=== PATIENT | male | born 1940 | race Caucasian/White ===

== ENCOUNTER 2019-02-21 15:09 | Observation (INO) | payer OTHER ==
--- OUTSIDE RECORDS SUMMARY | 2019-02-21 15:11 | XMS REPORT | Clinical Summary ---
:1940 Author Organization [facility] Address [address] [place] [address] Care Team Providers Name Role Phone Unavailable Primary Care Provider Unavailable Allergies No Known Allergies Medications Medication Sig Dispensed Refills Start Date End Date Status gabapentin (NEURONTIN) Take 300 mg by 0 Active 300 MG mouth 2 (two) capsuleIndications: times daily. Neuropathic Pain lansoprazole Take 30 mg by 0 Active (PREVACID) 30 MG mouth daily. capsule zinc gluconate 50 mg Take 50 mg by 0 Active tablet mouth daily. acetaminophen Take 650 mg by 0 Active (TYLENOL) 650 MG CR mouth every 8 tablet (eight) hours as needed for Pain. amLODIPine (NORVASC) 5 Take 1 tablet 90 tablet 0 08/31/2017 08/31/2018 MG tablet (5 mg total) by mouth daily. atorvastatin (LIPITOR) Take 1 tablet 90 tablet 0 08/30/2017 08/30/2018 80 MG tablet (80 mg total) by mouth nightly. aspirin 81 MG EC Take 1 tablet 90 tablet 0 08/31/2017 08/31/2018 tablet (81 mg total) by mouth daily. Active Problems Problem Noted Date Essential hypertension 08/27/2017 Ischemic stroke 08/26/2017 Tissue plasminogen activator (t-PA) administered at other facility within 04/2018 24 hours prior to current admission Immunizations Name Dates Previously Given Next Due Pneumococcal Polysaccharide (Pneumovax) 08/28/2017 Social History Tobacco Use Types Packs/Day Years Used Date Never Smoker Smokeless Tobacco: Never Used Alcohol Use Drinks/Week oz/Week Comments No Sex Assigned at Date Recorded Not on file Job Start Date Occupation Industry Not on file Not on file Not on file Travel History Travel Start Travel End No recent travel history available. Last Filed Vital Signs Not on file Plan of Treatment Not on file Results Not on fileafter 02/20/2018 Insurance Payer Benefit Plan / Subscriber ID Type Phone Address Group [employer] - [employer] MED[employer]ARE xxxxxxxx [facility] [phone] [address] MEDICARE [employer] HMO POS [id number] [place] [address] Advance Directives For more information, please contact:[address] [phone] Code Status Date Activated Date Inactivated Comments Full Code 08/26/2017 2:23 PM 08/30/2017 4:32 PM This code status was determined by: Patient
--- OUTSIDE RECORDS SUMMARY | 2019-02-21 15:12 | XMS REPORT ---
:1940 [facility] Organization [facility] Address [address] [place] [address] Care Team Providers Name Role Phone MARIZOL TELLEZ Unavailable Unavailable Problems This patient has no known problems. Allergies, Adverse Reactions, Alerts This patient has no known allergies or adverse reactions. Medications This patient has no known medications. Results Test Description Test Time Test Comments Text Results Atomic Results Result Comments BASIC METABOLIC PANEL 2017-08-30 05:44:00 Test Item Value Reference Range Comments SODIUM (BEAKER) (test 140 meq/L 136-145 lghh=529) POTASSIUM (BEAKER) (test 3.4 meq/L 3.5-5.1 pfpq=233) CHLORIDE (BEAKER) (test 110 meq/L 98-107 upkj=694) CO2 (BEAKER) (test gzcb=748) 22 meq/L 22-29 BLOOD UREA NITROGEN (BEAKER) 19 mg/dL 7-21 (test dzmt=197) CREATININE (BEAKER) (test 0.97 mg/dL 0.57-1.25 sytr=507) GLUCOSE RANDOM (BEAKER) 102 mg/dL 70-105 (test jgdw=462) CALCIUM (BEAKER) (test 8.9 mg/dL 8.4-10.2 ftaj=872) EGFR (BEAKER) (test 75 mL/min/1.73 sq m ESTIMATED GFR IS NOT odik=2108) ACCURATE CREATININE CLEARANCE IN PREDICTING GLOMERULAR FILTRATION RATE. ESTIMATED GFR IS NOT APPLICABLE FOR DIALYSIS PATIENTS. CBC W/PLT COUNT & AUTO [id number] 05:03:00 Test Item Value Reference Range Comments WHITE BLOOD CELL COUNT (BEAKER) (test mjum=085) 7.7 K/ L 3.5-10.5 RED BLOOD CELL COUNT (BEAKER) (test jryu=504) 4.11 M/ L 4.63-6.08 HEMOGLOBIN (BEAKER) (test cjqh=204) 13.2 GM/DL 13.7-17.5 HEMATOCRIT (BEAKER) (test iphv=232) 40.1 % 40.1-51.0 MEAN CORPUSCULAR VOLUME (BEAKER) (test aczp=892) 97.6 fL 79.0-92.2 MEAN CORPUSCULAR HEMOGLOBIN (BEAKER) (test 32.1 pg 25.7-32.2 wrfn=576) MEAN CORPUSCULAR HEMOGLOBIN CONC (BEAKER) (test 32.9 GM/DL 32.3-36.5 fjfb=101) RED CELL DISTRIBUTION WIDTH (BEAKER) (test 12.2 % 11.6-14.4 oqen=915) PLATELET COUNT (BEAKER) (test kbgm=374) 185 K/CU MM 150-450 MEAN PLATELET VOLUME (BEAKER) (test tqbl=153) 10.3 fL 9.4-12.4 NUCLEATED RED BLOOD CELLS (BEAKER) (test 0 /100 WBC 0-0 hrzp=730) NEUTROPHILS RELATIVE PERCENT (BEAKER) (test 61 % eacu=180) LYMPHOCYTES RELATIVE PERCENT (BEAKER) (test 26 % qvsy=356) MONOCYTES RELATIVE PERCENT (BEAKER) (test 10 % pota=294) EOSINOPHILS RELATIVE PERCENT (BEAKER) (test 2 % yqaj=782) BASOPHILS RELATIVE PERCENT (BEAKER) (test 1 % unke=935) NEUTROPHILS ABSOLUTE COUNT (BEAKER) (test 4.70 K/ L 1.78-5.38 bbkp=213) LYMPHOCYTES ABSOLUTE COUNT (BEAKER) (test 2.01 K/ L 1.32-3.57 tnxo=695) MONOCYTES ABSOLUTE COUNT (BEAKER) (test 0.76 K/ L 0.30-0.82 yuok=032) EOSINOPHILS ABSOLUTE COUNT (BEAKER) (test 0.15 K/ L 0.04-0.54 baak=044) BASOPHILS ABSOLUTE COUNT (BEAKER) (test 0.04 K/ L 0.01-0.08 nipk=935) IMMATURE GRANULOCYTES-RELATIVE PERCENT (BEAKER) 0 % 0-1 (test vnze=3339) POCT-GLUCOSE [id number] 16:47:00 Test Item Value Reference Range Comments POC-GLUCOSE METER (BEAKER) 125 mg/dL 70-[address] [facility] [address] [facility] (test xwtt=7117) [facility] [address] POCT-GLUCOSE [id number] 11:42:00 Test Item Value Reference Range Comments POC-GLUCOSE METER (BEAKER) 93 mg/dL 70-[address] [facility] [address] [facility] (test yimh=3433) [facility] [address] POCT-GLUCOSE [id number] 08:02:00 Test Item Value Reference Range Comments POC-GLUCOSE METER (BEAKER) 89 mg/dL 70-110 TESTED AT [place] [id number] [facility] (test fsii=6816) [facility] [address] BASIC METABOLIC [id number] 06:12:00 Test Item Value Reference Range Comments SODIUM (BEAKER) (test 140 meq/L 136-145 fbqu=654) POTASSIUM (BEAKER) (test 3.7 meq/L 3.5-5.1 caaw=468) CHLORIDE (BEAKER) (test 110 meq/L 98-107 ucxj=527) CO2 (BEAKER) (test 20 meq/L 22-29 eljm=676) BLOOD UREA NITROGEN 15 mg/dL 7-21 (BEAKER) (test jmnn=081) CREATININE (BEAKER) (test 1.02 mg/dL 0.57-1.25 moie=007) GLUCOSE RANDOM (BEAKER) 105 mg/dL 70-105 (test trsu=871) CALCIUM (BEAKER) (test 8.7 mg/dL 8.4-10.2 kujc=958) EGFR (BEAKER) (test 71 mL/min/1.73 sq m ESTIMATED GFR IS NOT ubem=3782) ACCURATE CREATININE CLEARANCE IN PREDICTING GLOMERULAR FILTRATION RATE. ESTIMATED GFR IS NOT APPLICABLE FOR DIALYSIS PATIENTS. CBC W/PLT COUNT & AUTO [id number] 05:12:00 Test Item Value Reference Range Comments WHITE BLOOD CELL COUNT (BEAKER) (test rwsp=570) 8.9 K/ L 3.5-10.5 RED BLOOD CELL COUNT (BEAKER) (test nlbx=288) 4.20 M/ L 4.63-6.08 HEMOGLOBIN (BEAKER) (test dicc=178) 13.5 GM/DL 13.7-17.5 HEMATOCRIT (BEAKER) (test mljs=299) 42.0 % 40.1-51.0 MEAN CORPUSCULAR VOLUME (BEAKER) (test bwcx=626) 100.0 fL 79.0-92.2 MEAN CORPUSCULAR HEMOGLOBIN (BEAKER) (test 32.1 pg 25.7-32.2 mgkt=511) MEAN CORPUSCULAR HEMOGLOBIN CONC (BEAKER) (test 32.1 GM/DL 32.3-36.5 klnv=384) RED CELL DISTRIBUTION WIDTH (BEAKER) (test 12.6 % 11.6-14.4 upnd=493) PLATELET COUNT (BEAKER) (test mmhm=811) 177 K/CU MM 150-450 MEAN PLATELET VOLUME (BEAKER) (test egih=587) 10.2 fL 9.4-12.4 NUCLEATED RED BLOOD CELLS (BEAKER) (test 0 /100 WBC 0-0 qzfp=886) NEUTROPHILS RELATIVE PERCENT (BEAKER) (test 64 % wveo=215) LYMPHOCYTES RELATIVE PERCENT (BEAKER) (test 24 % lyys=029) MONOCYTES RELATIVE PERCENT (BEAKER) (test 10 % bbhs=660) EOSINOPHILS RELATIVE PERCENT (BEAKER) (test 2 % grud=027) BASOPHILS RELATIVE PERCENT (BEAKER) (test 1 % teqo=203) NEUTROPHILS ABSOLUTE COUNT (BEAKER) (test 5.68 K/ L 1.78-5.38 nbev=008) LYMPHOCYTES ABSOLUTE COUNT (BEAKER) (test 2.09 K/ L 1.32-3.57 lqxr=927) MONOCYTES ABSOLUTE COUNT (BEAKER) (test 0.88 K/ L 0.30-0.82 rzth=249) EOSINOPHILS ABSOLUTE COUNT (BEAKER) (test 0.17 K/ L 0.04-0.54 ocit=608) BASOPHILS ABSOLUTE COUNT (BEAKER) (test 0.04 K/ L 0.01-0.08 isct=301) IMMATURE GRANULOCYTES-RELATIVE PERCENT (BEAKER) 0 % 0-1 (test ucqv=5403) POCT-GLUCOSE [id number] 21:19:00 Test Item Value Reference Range Comments POC-GLUCOSE METER (BEAKER) 106 mg/dL 70-[address] [facility] [address] [facility] (test uomx=7522) [facility] [address] BASIC METABOLIC [id number] 04:05:00 Test Item Value Reference Range Comments SODIUM (BEAKER) (test 143 meq/L 136-145 uqww=014) POTASSIUM (BEAKER) (test 3.7 meq/L 3.5-5.1 Specimen slightly mykg=162) hemolyzed CHLORIDE (BEAKER) (test 113 meq/L 98-107 ofxb=042) CO2 (BEAKER) (test 20 meq/L 22-29 znoz=050) BLOOD UREA NITROGEN 10 mg/dL 7-21 (BEAKER) (test desw=475) CREATININE (BEAKER) (test 0.88 mg/dL 0.57-1.25 Specimen slightly iptl=521) hemolyzed GLUCOSE RANDOM (BEAKER) 110 mg/dL 70-105 (test eykd=809) CALCIUM (BEAKER) (test 8.3 mg/dL 8.4-10.2 ngmf=805) EGFR (BEAKER) (test 84 mL/min/1.73 sq m ESTIMATED GFR IS NOT vyhv=4382) ACCURATE CREATININE CLEARANCE IN PREDICTING GLOMERULAR FILTRATION RATE. ESTIMATED GFR IS NOT APPLICABLE FOR DIALYSIS PATIENTS. CBC W/PLT COUNT & AUTO [id number] 03:49:00 Test Item Value Reference Range Comments WHITE BLOOD CELL COUNT (BEAKER) (test lqjf=488) 8.8 K/ L 3.5-10.5 RED BLOOD CELL COUNT (BEAKER) (test rugv=743) 4.14 M/ L 4.63-6.08 HEMOGLOBIN (BEAKER) (test evvz=643) 13.3 GM/DL 13.7-17.5 HEMATOCRIT (BEAKER) (test mkpv=413) 40.8 % 40.1-51.0 MEAN CORPUSCULAR VOLUME (BEAKER) (test iqxf=506) 98.6 fL 79.0-92.2 MEAN CORPUSCULAR HEMOGLOBIN (BEAKER) (test 32.1 pg 25.7-32.2 fpxu=927) MEAN CORPUSCULAR HEMOGLOBIN CONC (BEAKER) (test 32.6 GM/DL 32.3-36.5 hlgp=882) RED CELL DISTRIBUTION WIDTH (BEAKER) (test 12.6 % 11.6-14.4 usnr=408) PLATELET COUNT (BEAKER) (test habq=732) 171 K/CU MM 150-450 MEAN PLATELET VOLUME (BEAKER) (test uuaq=259) 10.0 fL 9.4-12.4 NUCLEATED RED BLOOD CELLS (BEAKER) (test 0 /100 WBC 0-0 xoej=080) NEUTROPHILS RELATIVE PERCENT (BEAKER) (test 74 % gkrx=542) LYMPHOCYTES RELATIVE PERCENT (BEAKER) (test 15 % gvgh=273) MONOCYTES RELATIVE PERCENT (BEAKER) (test 10 % luei=788) EOSINOPHILS RELATIVE PERCENT (BEAKER) (test 1 % hnll=986) BASOPHILS RELATIVE PERCENT (BEAKER) (test 0 % doxt=545) NEUTROPHILS ABSOLUTE COUNT (BEAKER) (test 6.52 K/ L 1.78-5.38 dpcf=668) LYMPHOCYTES ABSOLUTE COUNT (BEAKER) (test 1.33 K/ L 1.32-3.57 kbfo=191) MONOCYTES ABSOLUTE COUNT (BEAKER) (test 0.85 K/ L 0.30-0.82 jzeb=392) EOSINOPHILS ABSOLUTE COUNT (BEAKER) (test 0.07 K/ L 0.04-0.54 eeoq=861) BASOPHILS ABSOLUTE COUNT (BEAKER) (test 0.02 K/ L 0.01-0.08 wvdx=438) IMMATURE GRANULOCYTES-RELATIVE PERCENT (BEAKER) 0 % 0-1 (test yxsw=3340) MR, MRA, BRAIN, WITHOUT [id number] 14:29:00Reason for exam:-> StrokeWhat is the patient's sedation requirement?->No SedationIs the patientclaustrophobic?->NoFINAL REPORT MRA brain and neck without contrast 08/27/2017 2:28 PM CLINICAL HISTORY: StrokeIschemic stroke COMPARISON: None available TECHNIQUE: Two- and three-dimensional jkda-pi-nmyena MRA images of the intra- and extracranial arterial vasculature was performed, from which maximal intensity projection 3-D reconstructions were created. FINDINGS: MRA neck: There is no vessel occlusion or flow-limiting stenosis. There is no NASCET-quantifiable cervical internal carotid artery stenosis. Flow is antegrade in both vertebral arteries. MRA ramona of [place]: There is no vessel occlusion, flow-limiting stenosis, or aneurysm. IMPRESSION: Negative intra- and extracranial MRAs. Signed: Blaise Rangel Verified Date/ Time: 08/27/2017 14:29:54 Reading Location: [address] Neuro Reading Room MR, MRA, NECK, WITHOUT IV [id number] 14:29:00FINAL REPORT MRA brain and neck without contrast 08/27/2017 2:28 PM CLINICAL HISTORY: StrokeIschemic stroke COMPARISON: None available TECHNIQUE: Two- and three- dimensional spxl-wj-mfthtu MRA images of the intra- and extracranial arterial vasculature was performed, from which maximal intensity projection 3-D reconstructions were created. FINDINGS: MRA neck: There is no vessel occlusion or flow-limiting stenosis. There is no NASCET-quantifiable cervical internal carotid artery stenosis. Flow is antegrade in both vertebral arteries. MRA ramona of [place]: There is no vessel occlusion, flow-limiting stenosis, or aneurysm. IMPRESSION: Negative intra- and extracranial MRAs. Signed: Blaise Rangel Verified Date/Time: 08/27/2017 14:29:54 Reading Location: [address] Neuro Reading Room MR, BRAIN, WITHOUT [id number] 14:08:00Reason for exam:->StrokeWhat is the patient's sedation requirement?->No SedationIs the patientclaustrophobic?->NoFINAL REPORT MRI brain without contrast 08/27/2017 2:05 PM CLINICAL INDICATION: StrokePost-tPA TECHNIQUE : Multiplanar, multisequence MR imaging of the brain was performed utilizing the following imaging sequences: Axial T1, T2, FLAIR, GRE, and DWI; sagittal and coronal T1-weighted images. COMPARISON: None available FINDINGS: There is a small focus of acute ischemia in the right bardales radiata. There is trace subarachnoid hemorrhage overlying the anterior right frontal lobe. There is no intraparenchymal hematoma, mass, hydrocephalus, or extra-axial collection There is no hematoma, mass, hydrocephalus, or extra-axial collection. There is mild chronic microvascular ischemia elsewhere in the supratentorial white matter, with a chronic infarct in the right thalamus. Normal appearing flow-voids are present in the major intracranial vascular structures. The sellar and pineal regions, craniocervical junction, orbits, face, and skull base are without worrisome finding. IMPRESSION:1. Acute nonhemorrhagic right bardales radiata infarct.2. Trace right frontal subarachnoid hemorrhage.3.Mild chronic microvascular ischemia. Signed: Blaise Rangel MDReport Verified Date/Time: 14:08:46 Reading Location: [facility] [id number] Neuro Reading Room BASI METABOLIC [id number] 06:09:00 Test Item Value Reference Range Comments SODIUM (BEAKER) (test 141 meq/L 136-145 xnqs=080) POTASSIUM (BEAKER) (test 3.6 meq/L 3.5-5.1 Specimen slightly jzpe=659) hemolyzed CHLORIDE (BEAKER) (test 107 meq/L 98-107 xlae=219) CO2 (BEAKER) (test 22 meq/L 22-29 lxzr=798) BLOOD UREA NITROGEN 12 mg/dL 7-21 (BEAKER) (test ytga=321) CREATININE (BEAKER) (test 0.92 mg/dL 0.57-1.25 Specimen slightly lloz=291) hemolyzed GLUCOSE RANDOM (BEAKER) 123 mg/dL 70-105 (test xmwk=402) CALCIUM (BEAKER) (test 8.8 mg/dL 8.4-10.2 rvqf=700) EGFR (BEAKER) (test 80 mL/min/1.73 sq m ESTIMATED GFR IS NOT txbh=0568) ACCURATE CREATININE CLEARANCE IN PREDICTING GLOMERULAR FILTRATION RATE. ESTIMATED GFR IS NOT APPLICABLE FOR DIALYSIS PATIENTS. FastingLIPID [id number] 06:09:00 Test Item Value Reference Range Comments TRIGLYCERIDES (BEAKER) (test 142 mg/dL Specimen slightly hemolyzed dsqh=544) CHOLESTEROL (BEAKER) (test 184 mg/dL Specimen slightly hemolyzed aptb=110) HDL CHOLESTEROL (BEAKER) (test 45 mg/dL dreh=207) LDL CHOLESTEROL CALCULATED 111 mg/dL (BEAKER) (test agou=405) Triglyceride Reference Range: Low Risk <150 Borderline 150- 199 High Risk 200-499 Very High Risk >=500Cholesterol Reference Range: Low Risk <200 Borderline 200-239 High Risk > 240HDL Cholesterol Reference Range: Low Risk >=60 High Risk <40LDL Cholesterol Reference Range: Optimal <100 Near Optimal 100-129 Borderline 130-159 High 160-189 Very High >=190 FastingCBC W/PLT COUNT & AUTO [id number] 05:41:00 Test Item Value Reference Range Comments WHITE BLOOD CELL COUNT (BEAKER) (test avdf=225) 8.8 K/ L 3.5-10.5 RED BLOOD CELL COUNT (BEAKER) (test ojrb=642) 4.29 M/ L 4.63-6.08 HEMOGLOBIN (BEAKER) (test gfaj=421) 13.6 GM/DL 13.7-17.5 HEMATOCRIT (BEAKER) (test tfio=736) 41.0 % 40.1-51.0 MEAN CORPUSCULAR VOLUME (BEAKER) (test wtds=642) 95.6 fL 79.0-92.2 MEAN CORPUSCULAR HEMOGLOBIN (BEAKER) (test 31.7 pg 25.7-32.2 atat=565) MEAN CORPUSCULAR HEMOGLOBIN CONC (BEAKER) (test 33.2 GM/DL 32.3-36.5 tzig=582) RED CELL DISTRIBUTION WIDTH (BEAKER) (test 12.3 % 11.6-14.4 rbkn=217) PLATELET COUNT (BEAKER) (test meqi=692) 180 K/CU MM 150-450 MEAN PLATELET VOLUME (BEAKER) (test kxfs=584) 10.3 fL 9.4-12.4 NUCLEATED RED BLOOD CELLS (BEAKER) (test 0 /100 WBC 0-0 zerc=923) NEUTROPHILS RELATIVE PERCENT (BEAKER) (test 75 % pkzq=658) LYMPHOCYTES RELATIVE PERCENT (BEAKER) (test 17 % neta=107) MONOCYTES RELATIVE PERCENT (BEAKER) (test 8 % huax=607) EOSINOPHILS RELATIVE PERCENT (BEAKER) (test 0 % erge=490) BASOPHILS RELATIVE PERCENT (BEAKER) (test 0 % ewcu=945) NEUTROPHILS ABSOLUTE COUNT (BEAKER) (test 6.58 K/ L 1.78-5.38 oulc=968) LYMPHOCYTES ABSOLUTE COUNT (BEAKER) (test 1.52 K/ L 1.32-3.57 khps=937) MONOCYTES ABSOLUTE COUNT (BEAKER) (test 0.67 K/ L 0.30-0.82 decu=940) EOSINOPHILS ABSOLUTE COUNT (BEAKER) (test 0.03 K/ L 0.04-0.54 kria=242) BASOPHILS ABSOLUTE COUNT (BEAKER) (test 0.02 K/ L 0.01-0.08 xopv=039) IMMATURE GRANULOCYTES-RELATIVE PERCENT (BEAKER) 0 % 0-1 (test wdcm=3317) TROPONIN [id number] 01:47:00 Test Item Value Reference Range Comments TROPONIN I (BEAKER) (test jknq=005) 0.02 ng/mL 0.00-0.03 Troponin I (TnI) levels must be interpreted in the context of the presenting symptoms and the clinical findings. Elevated TnI levels indicate myocardial damage, but are not specific for ischemic heart disease. Elevated TnI levels are seen in patients with other cardiac conditions (including myocarditis and congestive heart failure), and slight TnI elevations occur in patients with other conditions, including sepsis, renal failure, acidosis, acute neurological disease, and persistent tachyarrhythmia.RAD, CHEST, 1 VIEW, NON [id number] 19:14:00Reason for exam:->Admission CXR; cvaShould this be performed at the bedside?->YesFINAL REPORT INDICATION: Admission CXR; cva COMPARISON: None TECHNIQUE: Single frontal view of the chest. FINDINGS: Lungs and pleura: Clear lungs. No effusion.Heart and mediastinum: Normal heart size. Unremarkable mediastinal contours.Osseous structures: No acute abnormality.Other: None. IMPRESSION: No acute intrathoracic abnormality. Signed : JR Gomez Robert MDReport Verified Date/Time: 08/26/2017 19:14:38 Reading Location: [address] Reading Room [id number] 18:43:00 Test Item Value Reference Range Comments FIBRINOGEN LEVEL (BEAKER) (test ypsl=648) 268 mg/dl 225-434 [id number] 18:43:00 Test Item Value Reference Range Comments PARTIAL THROMBOPLASTIN TIME (BEAKER) (test 27.9 seconds 22.5-36.0 tyit=037) PROTHROMBIN [id number] 18:42:00 Test Item Value Reference Range Comments PROTIME (BEAKER) (test ipqe=070) 13.8 seconds 11.7-14.7 INR (WEST) (test lcxq=240) 1.1 <=5.9 RECOMMENDED COUMADIN/WARFARIN INR THERAPY RANGESSTANDARD DOSE: 2.0 - 3.0 Includes: PROPHYLAXIS forvenous thrombosis, systemic embolization; TREATMENT for venous thrombosis and/or pulmonary embolus.HIGH RISK: Target INR is 2.5-3.5 for patients with mechanical heart valves.HEMOGLOBIN [id number] 17:54:00 Test Item Value Reference Range Comments HEMOGLOBIN A1C (WEST) (test jmmj=928) 5.5 % 4.3-6.1 VITAMIN B12 AND [id number] 17:45:00 Test Item Value Reference Range Comments VITAMIN B12 (WEST) (test luaw=838) 1294 pg/mL 213-816 FOLATE (WEST) (test osmn=772) > ng/mL >=7.0 CT, BRAIN, WITHOUT [id number] 17:32:00FINAL REPORT CT, BRAIN, WITHOUT CONTRAST INDICATION: worsening left hand weakness, s /p tPA TECHNIQUE: Noncontrast axial imaging was obtained from the vertex to the skull base. Axial images were reconstructed using a bone algorithm. DOSE REDUCTION: Dose modulation, iterative reconstruction, and/or weight-based adjustment of the mA/kV was utilized to reduce the radiation dose to as low as reasonably achievable. COMPARISON: None. FINDINGS: Cerebral parenchyma: Small volume subcortical and possible associated subarachnoid hemorrhage over the right middle frontal gyrus. No new infarct.Midline structures: Normally positioned.Cerebellum and brainstem: Commensurate volume loss.Ventricles: Normal volume.Extra-axial spaces: Unremarkable. Calvarium and skull base: Intact.Paranasal sinuses and mastoid air cells: Visible chambers are clear.Orbital contents: Included portions unremarkable. Additional findings: None. IMPRESSION: Subcortical and possible small volume subarachnoid bloodover the right middle frontal gyrus. Findings were communicated to stroke neurology housestaff at the time of dictation. Signed: JR Gomez Robert MDReport Verified Date/Time: 08/26/2017 17:32:46 Reading Location: [address] Reading Room TSH/FREE T4 IF [id number] 16:47:00 Test Item Value Reference Range Comments THYROID STIMULATING HORMONE (BEAKER) (test 0.60 uIU/mL 0.35-4.94 snzp=009) CREATINE KINASE (CK), TOTAL AND [id number] 16:17:00 Test Item Value Reference Range Comments CREATINE KINASE TOTAL (BEAKER) (test yibi=320) 121 U/L 29-200 CREATINE KINASE-MB (BEAKER) (test rryx=031) 1.5 ng/mL 0.0-6.6 CREATINE KINASE-MB INDEX (BEAKER) (test xoeu=336) 1.2 % CK-MB Reference Range:<6.7 Normal6.7-10.0 Borderline>10.0 AbnormalTROPONIN [id number] 16:17:00 Test Item Value Reference Range Comments TROPONIN I (BEAKER) (test kktv=837) < ng/mL 0.00-0.03 Troponin I (TnI) levels must be interpreted in the context of the presenting symptoms and the clinical findings. Elevated TnI levels indicate myocardial damage, but are not specific for ischemic heart disease. Elevated TnI levels are seen in patients with other cardiac conditions (including myocarditis and congestive heart failure), and slight TnI elevations occur in patients with other conditions, including sepsis, renal failure, acidosis, acute neurological disease, and persistent tachyarrhythmia.HEPATIC FUNCTION [id number] 16:11: 00 Test Item Value Reference Range Comments TOTAL PROTEIN (BEAKER) (test agqc=971) 7.0 gm/dL 6.0-8.3 ALBUMIN (BEAKER) (test dzle=8144) 4.0 g/dL 3.5-5.0 BILIRUBIN TOTAL (BEAKER) (test qglx=049) 0.3 mg/dL 0.2-1.2 BILIRUBIN DIRECT (BEAKER) (test lliu=329) 0.1 mg/dL 0.1-0.5 ALKALINE PHOSPHATASE (BEAKER) (test mzee=632) 148 U/L 40-150 AST (SGOT) (BEAKER) (test xsjs=141) 23 U/L 5-34 ALT (SGPT) (BEAKER) (test znio=681) 21 U/L 6-55 BASIC METABOLIC [id number] 16:11:00 Test Item Value Reference Range Comments SODIUM (BEAKER) (test 142 meq/L 136-145 oila=935) POTASSIUM (BEAKER) (test 4.3 meq/L 3.5-5.1 ridf=534) CHLORIDE (BEAKER) (test 107 meq/L 98-107 mjdh=907) CO2 (BEAKER) (test 24 meq/L 22-29 jkaq=679) BLOOD UREA NITROGEN 10 mg/dL 7-21 (BEAKER) (test kxyr=745) CREATININE (BEAKER) (test 0.93 mg/dL 0.57-1.25 mdtk=490) GLUCOSE RANDOM (BEAKER) 130 mg/dL 70-105 (test tsor=718) CALCIUM (BEAKER) (test 8.7 mg/dL 8.4-10.2 tjex=499) EGFR (BEAKER) (test 79 mL/min/1.73 sq m ESTIMATED GFR IS NOT xgro=6724) ACCURATE CREATININE CLEARANCE IN PREDICTING GLOMERULAR FILTRATION RATE. ESTIMATED GFR IS NOT APPLICABLE FOR DIALYSIS PATIENTS. CBC W/PLT COUNT & AUTO [id number] 15:57:00 Test Item Value Reference Range Comments WHITE BLOOD CELL COUNT (BEAKER) (test kqxj=121) 11.7 K/ L 3.5-10.5 RED BLOOD CELL COUNT (BEAKER) (test wrgv=595) 4.42 M/ L 4.63-6.08 HEMOGLOBIN (BEAKER) (test tect=970) 14.3 GM/DL 13.7-17.5 HEMATOCRIT (BEAKER) (test tfuy=388) 43.1 % 40.1-51.0 MEAN CORPUSCULAR VOLUME (BEAKER) (test fakp=844) 97.5 fL 79.0-92.2 MEAN CORPUSCULAR HEMOGLOBIN (BEAKER) (test 32.4 pg 25.7-32.2 edyy=077) MEAN CORPUSCULAR HEMOGLOBIN CONC (BEAKER) (test 33.2 GM/DL 32.3-36.5 hxde=821) RED CELL DISTRIBUTION WIDTH (BEAKER) (test 12.1 % 11.6-14.4 aaki=536) PLATELET COUNT (BEAKER) (test pmst=684) 179 K/CU MM 150-450 MEAN PLATELET VOLUME (BEAKER) (test tfjc=755) 10.1 fL 9.4-12.4 NUCLEATED RED BLOOD CELLS (BEAKER) (test 0 /100 WBC 0-0 efzh=140) NEUTROPHILS RELATIVE PERCENT (BEAKER) (test 85 % wfca=621) LYMPHOCYTES RELATIVE PERCENT (BEAKER) (test 10 % iugn=515) MONOCYTES RELATIVE PERCENT (BEAKER) (test 4 % wbhq=408) EOSINOPHILS RELATIVE PERCENT (BEAKER) (test 0 % tzib=019) BASOPHILS RELATIVE PERCENT (BEAKER) (test 0 % jczq=198) NEUTROPHILS ABSOLUTE COUNT (BEAKER) (test 9.99 K/ L 1.78-5.38 rxqe=738) LYMPHOCYTES ABSOLUTE COUNT (BEAKER) (test 1.15 K/ L 1.32-3.57 gbnl=883) MONOCYTES ABSOLUTE COUNT (BEAKER) (test 0.48 K/ L 0.30-0.82 sqyx=700) EOSINOPHILS ABSOLUTE COUNT (BEAKER) (test 0.03 K/ L 0.04-0.54 eeip=833) BASOPHILS ABSOLUTE COUNT (BEAKER) (test 0.03 K/ L 0.01-0.08 naxj=383) IMMATURE GRANULOCYTES-RELATIVE PERCENT (BEAKER) 0 % 0-1 (test zljn=8757)
[2019-02-21] MEDS ORDERED: NA CHLORIDE 0.9% 1,000 ML ONE (15:50)
[2019-02-21] MEDS ORDERED: ONDANSETRON 4 MG/2 ML VIAL ONE (15:50)
[2019-02-21] MEDS ORDERED: FENTANYL CITR 100 MCG/2 ML ONE (15:50)
[2019-02-21 15:57] LABS: Absolute Lymphocytes (CBC) 1.1 K/uL (0.7-4.9); Basophils % 0.3 % (0-1.3); Hematocrit 42.1 % (39.6-49.0); Lymphocytes % 8.5 % (15.3-44.8); MPV 8.8 fL (7.6-11.3); RBC Red Blood Cell Count 4.24 M/uL (4.33-5.43)
[2019-02-21 16:14] LABS: Urine Blood 2+ (NEG); Urine Glucose NEGATIVE (NEG); Urine Protein NEGATIVE (NEG)
[2019-02-21 16:20] LABS: Albumin 4.1 g/dL (3.4-5.0); Bilirubin Direct 0.1 mg/dL (0-0.2); Bilirubin Total 0.4 mg/dL (0.2-1.0); Potassium 3.9 mmol/L (3.5-5.1); Protein, Total 8.2 g/dL (6.4-8.2)
[2019-02-21 16:24] LABS: Blood Morphology Comment NOT SEEN (NOT SEEN); Platelet Estimate ADEQ; Urine White Blood Cell Casts OK
--- NOTE | 2019-02-21 16:32 | RAD REPORT ---
EXAM DESCRIPTION: CT - Stone Protocol - 02/21/2019 4:06 pm CLINICAL HISTORY: Right lower back pain, right flank pain COMPARISON: None. TECHNIQUE: Axial 5 mm thick images were obtained without oral or IV contrast. The [id number] span s the entirety of the system partially obscuring uppermost abdomen and lung bases. All CT scans are performed using dose optimization technique as appropriate and may include automated exposure control or mA/KV adjustment according to patient size. FINDINGS: Moderate severity right-sided hydronephrosis is present down to the pelvic inlet where the re is a tree 0 obstructing calculi measuring 6 mm, 6 mm and 9 mm in size. Distal to the stones the ur eter is decompressed. There is stranding along the course of the dilated ureter and there is strandin g in the anterior renal fascia on the right and in the perinephric fat. Patient has a 2 mm nonobstruc ting calyx calcification upper pole on the right, 3 mm mid calyx on the right and 7 mm lower pole beth yx on the right. A 2 mm lower pole calcification noted on the left with adjacent 3 mm calculi in the mid left kidney. There is a cluster of 3-8 mm calcifications in the upper pole of the left kidney. Erich felton has a 4.8 centimeter upper pole left renal cyst. No suspicious renal masses. Isodense masses an d pyelonephritis are not excluded on a stone protocol CT scan. Urinary bladder is mostly contracted. No bladder calculi. Prostate gland and seminal vesicles normal size. Numerous pelvic floor phlebolith s are present. No significant adrenal finding. Imaged portions of the liver, spleen and pancreas show no suspicious findings on non-contrast imaging . Several punctate gallstones are layering in the dependent portion of the gallbladder wall. No acute gallbladder finding or biliary tree dilatation. No acute bowel finding. Small amount of fluid in stranding adjacent to the distal duodenum is believe d to be secondary response to the kidney obstruction. No mass or bulky lymphadenopathy. A small fat only umbilical hernia is present in the patient has sma ll fat only bilateral inguinal hernias peer no free air or pneumatosis. No other area of inflammatory stranding. Disc and bony degenerative changes are present advanced at the L3-4 disc space. IMPRESSION: Moderate severity right-side hydronephrosis secondary to a cluster of ureter stones at t he right pelvic inlet measuring 6 mm, 6 mm and 9 mm in size. Patient has numerous bilateral nonobstructing calyx calculi. Isodense masses and pyelonephritis are not excluded on stone protocol technique. Additional nonacute findings detailed in the body of the report.
[2019-02-21] MEDS ORDERED: HYDROMORPHONE HCL 0.5 MG/0.5 ML INJ ONE (16:39)
[2019-02-21] MEDS ORDERED: ACETAMINOPHEN 500 MG TAB PO PRN (17:09)
[2019-02-21] MEDS ORDERED: ONDANSETRON 4 MG/2 ML VIAL IV PRN (17:09)
--- NOTE | 2019-02-21 17:10 | ER ---
Nurse's Notes [facility] Name: Dayron Boggs Age: 78 yrs Sex: Male : 1940 Arrival Date: 02/21/2019 Time: 15:12 Bed 15 Private MD: Mario Esparza T Diagnosis: Calculus of kidney and ureter Presentation: 02/21 15:22 Presenting complaint: Patient states: R low back pain since this morning, N/V, hx of hb kidney stones. Transition of care: patient was not received from another setting of care. Onset of symptoms was February 21, 2019. Risk Assessment: Do you want to hurt yourself or someone else? Patient reports no desire to harm self or others. Initial Sepsis Screen: Does the patient meet any 2 criteria? No. Patient's initial sepsis screen is negative. Does the patient have a suspected source of infection? No. Patient's initial sepsis screen is negative. Care prior to arrival: None. 15:22 Method Of Arrival: Ambulatory hb 15:22 Acuity: JESUS 3 hb Historical: - Allergies: 15:25 No Known Allergies; hb - Home Meds: 15:25 aspirin 81 mg Oral TbEC twice weekly [Active]; gabapentin 300 mg Oral cap Q8H [Active]; hb meloxicam 15 mg Oral tab 1 tab once daily [Active]; amlodipine 5 mg tab 1 tab once daily [Active]; carvedilol oral oral [Active]; atorvastatin 80 mg oral tab 1 tab once daily [Active]; Xarelto 20 mg oral tab 1 tab once daily [Active]; - PMHx: 15:25 CVA; Hypertension; Hyperlipidemia; hb - PSHx: 15:25 right heel; hb - Immunization history:: Adult Immunizations unknown. - Social history:: Smoking status: Patient/guardian denies using tobacco. - Ebola Screening: : No symptoms or risks identified at this time. Screenin:05 Abuse screen: Denies threats or abuse. Denies injuries from another. Nutritional aj screening: No deficits noted. Tuberculosis screening: No symptoms or risk factors identified. Fall Risk None identified. Assessment: 16:05 General: Appears in no apparent distress. uncomfortable, Behavior is agitated. Pain: aj Complains of pain in back. Neuro: Level of Consciousness is awake, alert, obeys commands, Oriented to person, place, time, situation, Appropriate for age. Respiratory: Airway is patent Respiratory effort is even, unlabored, Respiratory pattern is regular, symmetrical. GI: Abdomen is non-distended, obese, Bowel sounds present X 4 quads. Abd is soft and non tender Reports nausea. Derm: Skin is intact, is healthy with good turgor, Skin is pink, warm \T\ dry. normal. Vital Signs: 15:26 Pulse 94; Resp 20; Temp 97.0; Pulse Ox 95% on R/A; Weight 83.91 kg; Height 5 ft. 8 in. hb (172.72 cm); 15:27 BP 173 / 68; hb 16:44 BP 156 / 74; Pulse 75; Resp 18; Pulse Ox 96% on R/A; aj 15:26 Body Mass Index 28.13 (83.91 kg, 172.72 cm) hb ED Course: 15:12 Patient arrived in ED. mr 15:12 Mario Esparza MD is Private Physician. mr 15:23 Triage completed. hb 15:29 Yola Alvarez, ALIYA is Primary Nurse. aj 15:30 Brian Crystal PA is PHCP. [facility] 15:30 Mac Allen MD is Attending Physician. jmm 15:54 Urine collected: clean catch specimen, clear, desiree colored. jb1 16:05 Inserted saline lock: 22 gauge in right hand, using aseptic technique. Blood collected. aj 16:05 Patient has correct armband on for positive identification. Bed in low position. aj 16:06 CT Stone Protocol In Process Unspecified. EDMS 17:09 Sharon Rios MD is Hospitalizing Provider. [facility] 18:38 No provider procedures requiring assistance completed. Patient admitted, IV remains in aj place. intact. Administered Medications: 16:04 Drug: fentaNYL (PF) 25 mcg Route: IVP; Site: right hand; aj 18:39 Follow up: Response: Pain is unchanged, physician notified aj 16:04 Drug: Zofran 4 mg Route: IVP; Site: right hand; aj 18:40 Follow up: Response: No adverse reaction aj 16:05 Drug: NS 0.9% 1000 ml Route: IV; Rate: 125 ml/hr; Site: right hand; aj 18:40 Follow up: Response: No adverse reaction; IV Status: Infusion continued upon admission; aj IV Intake: 250ml 16:41 Drug: Dilaudid 0.5 mg Route: IVP; Site: right hand; aj 18:40 Follow up: Response: No adverse reaction; Pain is decreased aj 17:23 Drug: Rocephin - (cefTRIAXone) 1 grams Route: IVPB; Infused Over: 30 mins; Site: right aj hand; 18:41 Follow up: Response: No adverse reaction; IV Status: Completed infusion; IV Intake: 10mlaj Intake: 18:40 IV: 250ml; Total: 250ml. aj 18:41 IV: 10ml; Total: 260ml. juliana Outcome: 17:09 Decision to Hospitalize by Provider. ashley 18:38 Admitted to Med/surg accompanied by tech, room 224, Report called to Roro andrews 18:38 Condition: good 18:38 Instructed on the need for admit. 18:41 Patient left the ED. juliana Signatures: Dispatcher [employer] Ruddy Jean-Baptiste Amanda, RN RN Brian Prasad PA PA jmm Rivera, Mary mr Baxter, Heather, RN RN
--- NOTE | 2019-02-21 17:11 | EDPHYS ---
Physician Documentation [facility] Name: Dayron Boggs Age: 78 yrs Sex: Male : 1940 Arrival Date: 02/21/2019 Time: 15:12 Bed 15 Private MD: Mario Esparza T ED Physician Mac Allen HPI: 02/21 15:35 This 78 yrs old Male presents to ER via Ambulatory with complaints of jmm Possible Kidney Stone. 15:35 The patient complains of pain in the right flank. Onset: The symptoms/episode jmm began/occurred acutely, today. Modifying factors: The symptoms are alleviated by nothing. the symptoms are aggravated by nothing. Associated signs and symptoms: Pertinent positives: nausea, Pertinent negatives: diarrhea, vomiting. This is a 78 year old male with a history of CVA, htn, hlp that presents to the ED with complaints of right flank pain beginning this morning. patient states episode is similar to previous kidney stones. . Historical: - Allergies: 15:25 No Known Allergies; hb - Home Meds: 15:25 aspirin 81 mg Oral TbEC twice weekly [Active]; gabapentin 300 mg Oral cap Q8H [Active]; hb meloxicam 15 mg Oral tab 1 tab once daily [Active]; amlodipine 5 mg tab 1 tab once daily [Active]; carvedilol oral oral [Active]; atorvastatin 80 mg oral tab 1 tab once daily [Active]; Xarelto 20 mg oral tab 1 tab once daily [Active]; - PMHx: 15:25 CVA; Hypertension; Hyperlipidemia; hb - PSHx: 15:25 right heel; hb - Immunization history:: Adult Immunizations unknown. - Social history:: Smoking status: Patient/guardian denies using tobacco. - Ebola Screening: : No symptoms or risks identified at this time. ROS: 15:35 Constitutional: Negative for fever, chills, and weight loss, Cardiovascular: Negative jmm for chest pain, palpitations, and edema, Respiratory: Negative for shortness of breath, cough, wheezing, and pleuritic chest pain. 15:35 : Negative for injury, bleeding, discharge, and swelling, Neuro: Negative for headache, weakness, numbness, tingling, and seizure. 15:35 Abdomen/GI: Positive for abdominal pain, nausea. 15:35 Back: Positive for flank pain, on the right. 15:35 All other systems are negative. Exam: 15:35 Head/Face: atraumatic. Eyes: EOMI, no conjunctival erythema appreciated ENT: Moist [facility] Mucus Membranes Neck: Trachea midline, Supple Chest/axilla: Normal chest wall appearance and motion. Cardiovascular: Regular rate and rhythm. No edema appreciated Respiratory: Normal respirations, no respiratory distress appreciated 15:35 Skin: General appearance color normal MS/ Extremity: Moves all extremities, no obvious deformities appreciated, no edema noted to the lower extremities Neuro: Awake and alert, normal gait Psych: Behavior is normal, Mood is normal, Patient is cooperative and pleasant 15:35 Constitutional: The patient appears alert, awake, uncomfortable. 15:35 Abdomen/GI: Inspection: abdomen appears normal, Bowel sounds: normal. 15:35 Back: CVA tenderness, that is mild, is noted on the right. 17:05 ECG was reviewed by the Attending Physician. [facility] Vital Signs: 15:26 Pulse 94; Resp 20; Temp 97.0; Pulse Ox 95% on R/A; Weight 83.91 kg; Height 5 ft. 8 in. hb (172.72 cm); 15:27 BP 173 / 68; hb 16:44 BP 156 / 74; Pulse 75; Resp 18; Pulse Ox 96% on R/A; aj 15:26 Body Mass Index 28.13 (83.91 kg, 172.72 cm) hb MDM: 15:35 Patient medically screened. [facility] 17:08 Data reviewed: vital signs, nurses notes. Counseling: I had a detailed discussion with [facility] the patient and/or guardian regarding: the historical points, exam findings, and any diagnostic results supporting the discharge/admit diagnosis, lab results, radiology results, the need for further work-up and treatment in the hospital. ED course: I discussed the patient with Dr. Sol whom advised to d/c anticoagulants and administer IV rocephin. I discussed the patient with Dr. Rios whom accepted admission. . 02/21 15:44 Order name: Basic Metabolic Panel; Complete Time: 16:37 02/21 15:44 Order name: CBC with Diff; Complete Time: 16:37 02/21 15:44 Order name: Creatinine for Radiology; Complete Time: 16:37 02/21 15:44 Order name: Hepatic Function; Complete Time: 16:37 02/21 15:44 Order name: Lipase; Complete Time: 16:37 02/21 15:48 Order name: Urine Dipstick--Ancillary (enter results); Complete Time: 16:20 va 02/21 16:02 Order name: CBC Smear Scan; Complete Time: 16:37 [facility] 02/21 16:46 Order name: Troponin (emerg Dept Use Only); Complete Time: 06:14 [facility] 02/21 17:13 Order name: CBC with Automated Diff [facility] 02/21 17:14 Order name: CBC with Automated Diff EDMS 02/21 17:14 Order name: CBC with Automated Diff EDMS 02/21 17:14 Order name: Comprehensive Metabolic Panel [facility] 02/21 17:14 Order name: Comprehensive Metabolic Panel [facility] 02/21 17:14 Order name: Comprehensive Metabolic Panel [facility] 02/21 15:44 Order name: IV Saline Lock; Complete Time: 16:05 02/21 15:44 Order name: Labs collected and sent; Complete Time: 16:05 02/21 15:44 Order name: CT Stone Protocol; Complete Time: 16:37 02/21 16:46 Order name: EKG - Nurse/Tech; Complete Time: 17:08 [facility] 02/21 17:13 Order name: CONS Physician Consult [facility] 02/21 17:13 Order name: Heart Healthy [facility] 02/21 17:13 Order name: NPO [facility] 02/21 17:14 Order name: Magnesium EDTX 02/21 17:14 Order name: Magnesium [facility] 02/21 17:14 Order name: Phosphorus [facility] 02/21 17:14 Order name: Phosphorus EDTX EC:05 Rate is 64 beats/min. Rhythm is regular. QRS [place] is Normal. IA interval is normal. QRS jmm interval is normal. QT interval is normal. No Q waves. T waves are Normal. No ST changes noted. Reviewed by me. Administered Medications: 16:04 Drug: fentaNYL (PF) 25 mcg Route: IVP; Site: right hand; aj 18:39 Follow up: Response: Pain is unchanged, physician notified aj 16:04 Drug: Zofran 4 mg Route: IVP; Site: right hand; aj 18:40 Follow up: Response: No adverse reaction aj 16:05 Drug: NS 0.9% 1000 ml Route: IV; Rate: 125 ml/hr; Site: right hand; 18:40 Follow up: Response: No adverse reaction; IV Status: Infusion continued upon admission; IV Intake: 250ml 16:41 Drug: Dilaudid 0.5 mg Route: IVP; Site: right hand; 18:40 Follow up: Response: No adverse reaction; Pain is decreased 17:23 Drug: Rocephin - (cefTRIAXone) 1 grams Route: IVPB; Infused Over: 30 mins; Site: right hand; 18:41 Follow up: Response: No adverse reaction; IV Status: Completed infusion; IV Intake: 10mlaj Disposition: 02/22 08:11 Co-signature as Attending Physician, Mac Allen MD I agree with the assessment and kdr plan of care. Disposition: 02/21/19 17:09 Hospitalization ordered by Sharon Rios for Inpatient Admission. Preliminary diagnosis is Calculus of kidney and ureter. - Bed requested for Telemetry/MedSurg (Inpatient). - Status is Inpatient Admission. aj - Condition is Stable. - Problem is new. - Symptoms are unchanged. UTI on Admission? No Signatures: Dispatcher [employer] EDYola Manzo RN RN Mac Pierson MD MD [facility] Brian Crystal PA PA [facility] Tess Jensen RN RN hb Corrections: (The following items were deleted from the chart) 02/21 17:39 17:09 Hospitalization Ordered by Sharon Rios MD for Inpatient Admission. Preliminary hb diagnosis is Calculus of kidney and ureter. Bed requested for Telemetry/MedSurg (Inpatient). Status is Inpatient Admission. Condition is Stable. Problem is new. Symptoms are unchanged. UTI on Admission? No. [facility] 18:41 17:39 02/21/2019 17:09 Hospitalization Ordered by Sharon Rios MD for Inpatient Admission. Preliminary diagnosis is Calculus of kidney and ureter. Bed requested for Telemetry/MedSurg (Inpatient). Status is Inpatient Admission. Condition is Stable. Problem is new. Symptoms are unchanged. UTI on Admission? No. hb
[2019-02-21] MEDS ORDERED: MORPHINE 2 MG/ML SYR IV PRN (17:13)
[2019-02-21] MEDS ORDERED: CEFTRIAXONE/SWI 1gm 1 GM/10 ML SYR ONE (17:20)
[2019-02-21] MEDS: CEFTRIAXONE/SWI 1gm 1 GM/10 ML SYR IVP SCH (20:17)
[2019-02-21] MEDS: NA CHLORIDE 0.9% 1,000 ML IV SCH (20:17)
[2019-02-21] MEDS: FENTANYL CITR 100 MCG/2 ML IV PRN (22:42)
[2019-02-22] MEDS: FENTANYL CITR 100 MCG/2 ML IV PRN ×2 (02:17→07:56)
--- NOTE | 2019-02-22 04:29 | HP ---
Date of Admission: 02/21/2019 Chief Complaint: Right flank pain. Code Status: Full. History Of Present Illness: The patient is a 78-year-old male with past medical history of hypertension; hyperlipidemia; CVA, on Xarelto; and atrial flutter paroxysmal, who comes in with sudden onset of right-sided flank pain. Patient's pain was constant, moderate, progressively worsening, associated with some nausea but no vomiting. Patient has had kidney stones in the past. Denies any alleviating or aggravating factors. Patient came into the ER for further evaluation. His workup revealed a white count of 12.5. His kidney function was elevated at 1.7. CT scan showed multiple stones in the ureter in the right pelvic inlet measuring 6 mm through 9 mm. Patient was started on IV fluids, pain medications, and referred for admission. Past Medical History: Hypertension, hyperlipidemia, history of CVA. Surgical History: Right heel surgery. Allergies: NO KNOWN DRUG ALLERGIES. Medications: List reviewed. Social History: Patient denies any tobacco use, alcohol use, or illicit drug use. Patient is , independent in his activities of daily living. Family History: Negative for any premature coronary artery disease. Review of Systems: An 11-point system reviewed, negative except as per HPI. Physical Examination: Vital Signs: Pulse 94, respirations 20, temperature 97, O2 of 95% on room air, blood pressure 172/68. General: Awake, alert, oriented x3. Elderly male, in mild distress due to pain. HEENT: Normocephalic, atraumatic. PERRLA. EOMI. Dry mucous membranes. Oropharynx is clear. Conjunctivae anicteric. Neck: Supple. No JVD. Trachea midline. CV: S1, S2. Regular rate and rhythm. Peripheral pulses present. Respiratory: Moving air well bilaterally. No wheezing or stridor. No use of accessory muscles. Gastrointestinal: Abdomen is soft, nontender, nondistended. Positive bowel sounds. No guarding or rigidity. The patient has right-sided flank pain. Extremities: No clubbing, cyanosis, or edema. No calf tenderness. Neuro: Cranial nerves 2 through 12 intact grossly. No focal neurological deficits. Speech is normal. Skin: No rashes. Normal skin turgor. Psych: Mood is okay. Affect is full. Insight and judgment are good. Laboratory Data: UA is negative. Does have 2+ blood. Micro is pending. Sodium 142, potassium 3.9, chloride 109, CO2 of 24, BUN 20, creatinine 1.78, glucose 149, calcium 8.8. WBC 12.5, hemoglobin and hematocrit 13.6 and 42.1, platelets 182, neutrophils 86%. CT scan of the abdomen shows moderate severity right-sided hydronephrosis secondary to cluster of ureter stones at the right pelvic inlet measuring 6 mm and 9 mm in size. Numerous bilateral nonobstructing calyx calculi. Isodense masses and pyelonephritis are not excluded on stone protocol. Additional nonacute findings per report, patient has a 4.8 cm right upper pole left renal cyst and a 7 mm lower pole stanley on the right. Assessment: A 78-year-old male with: 1. Right ureteral stones, multiple. Patient will be started on IV fluids, kept n.p.o. after midnight. Urology has been consulted. We will likely need lithotripsy. We will hold the patient's anticoagulant. Last dose was this morning. We will continue with IV fluids and pain medications and IV antibiotics. We will follow up on urine cultures. May need to be bridged with lovenox. 2. Acute kidney injury secondary to hydronephrosis and ureteral stones. We will continue with IV fluids and avoid NSAIDs. The patient does have some peripheral edema. Therefore, we will place on gentle IV fluid hydration. 3. Essential hypertension, stable. We will resume home medications as appropriate. 4. Hyperlipidemia. Continue statin. 5. History of cerebrovascular accident, on Xarelto. We will hold for now due to procedure. 6. Atrial flutter. Hold anti-coagulation due to anticipated procedure. Plan: Admit patient to Med-Surg, place as inpatient. Length of stay greater than 2 midnights. /JAKE Voice ID: [id number] DERRICK
[2019-02-22 06:53] LABS: Absolute Lymphocytes (CBC) 1.5 K/uL (0.7-4.9); Basophils % 0.6 % (0-1.3); Hematocrit 40.5 % (39.6-49.0); Lymphocytes % 13.1 % (15.3-44.8); MPV 8.5 fL (7.6-11.3); RBC Red Blood Cell Count 4.09 M/uL (4.33-5.43)
[2019-02-22 07:15] LABS: Albumin 3.7 g/dL (3.4-5.0); Bilirubin Total 0.3 mg/dL (0.2-1.0); Magnesium 2.6 mg/dL (1.8-2.4); Phosphorus 3.4 mg/dL (2.5-4.9); Potassium 4.2 mmol/L (3.5-5.1); Protein, Total 7.6 g/dL (6.4-8.2)
[2019-02-22] MEDS: NA CHLORIDE 0.9% 1,000 ML IV SCH (07:20)
--- NOTE | 2019-02-22 07:36 | EKG ---
Test Date: 2019-02-21 Test Time: 17:03:15 Electrical Checkout Mechanic: DIANA MEASUREMENT RESULTS: Intervals: Rate: 64 KS: 116 QRSD: 92 QT: 418 QTc: 431 [place]: P: 49 KS: 116 QRS: 25 T: 48 INTERPRETIVE STATEMENTS: Sinus rhythm with marked sinus arrhythmia Otherwise normal ECG Compared to ECG 08/26/2017 12:28:46 No significant changes Electronically Signed On 02-22-19 07:36:00 CDT by Cayetano Soriano
[2019-02-22] MEDS: CEFTRIAXONE/SWI 1gm 1 GM/10 ML SYR IVP SCH ×2 (07:58→20:34)
--- NOTE | 2019-02-22 09:44 | CON ---
Reason For Consult: Preop evaluation. History Of Present Illness: Mr. Boggs is a gentleman, who had a stroke in August 2017 after th at using a LINQ device. He was found to have atrial fibrillation. He is completely asymptomatic for it. He takes Xarelto every day. His last dose of Xarelto was a little bit more than 24 hours ago. He came to the hospital with pain in the flank and was found to have multiple ureteral stones. He h as had multiple numerous kidney stones in the past, although it has been several years since he requi red hospitalization or any surgery. Outpatient Medications: Aspirin, hydrochlorothiazide, candesartan, amlodipine, carvedilol, atorvasta tin, rivaroxaban 20, lansoprazole, gabapentin, and Singulair. Uses no tobacco. Never had myocardial infarction, stents, bypass surgery. Never was hospitalized fo r atrial fibrillation or feels it. Physical Examination: Vital Signs: Height is 5 feet 8, 189 pounds. General: Alert, oriented, pleasant. He is hurting from the kidney stones. Not diaphoretic. Not in any respiratory distress. Lungs: Clear. Heart: Regular rate and rhythm. Abdomen: Soft. Extremities: Normal. EKG normal. His last dose of rivaroxaban was about 26 hours ago. I think he is stable enough to go through surgery if we wait until afternoon that is long enough for the Xarelto to have worn out. I d id recommend to him that he take the Xarelto the evening time with food and it is recommended by the company to take it in the morning, is not as effective and also makes it more inconvenient for scheduling surgeries often. WALTER/JAKE Voice ID: [id number] Report ID: [id number]
[2019-02-22] MEDS: D5W 1,000 ML with NA BICARB 8.4% 100 MEQ IV SCH ×4 (10:00→14:16)
--- NOTE | 2019-02-22 10:09 | CON ---
History Of Present Illness: A 78-year-old gentleman admitted with 3 stones in the right upper ureter at the pelvic inlet, 6 mm, 6 mm, and 9 mm in size. These stranding in the course of the dilated ure ter and up to the anterior renal fascia on the right and perinephric fat. He also has a 2 mm calycea l stone in the upper pole right, 3 mm mid calyx on the right, 7 mm lower pole calyx on the right. In addition, he has a 2 mm calcification on the left and adjacent 3 mm calculi in the left mid kidney. There is a cluster of measuring from 3 to 8 mm calcification in the upper pole of the left kidney. The patient also has a 4.8 cm upper pole renal cyst. There are no other suspicious findings. Bladde r is mostly contracted. No bladder calculi. Prostate gland within normal limits. The patient was a dmitted overnight for pain medication and made n.p.o. for cysto stent placement on the right side thi s afternoon. The patient has a history of hypertension; hyperlipidemia; CVA, on Xarelto, which is on hold; atrial flutter paroxysmal and came in with right-sided pain. The pain was constant and modera te, progressively worsened with some nausea, but no vomiting. The patient has a history of kidney st ones in the past. Past Medical History: As mentioned above, hypertension, hyperlipidemia, CVA. Past Surgical History: Right heel surgery. Allergies: NO KNOWN DRUG ALLERGIES. Medications: List reviewed. Blood thinners held. Social History: Denies tobacco, smoking, alcohol, or illicit drug use. The patient is . Family History: Negative for premature coronary artery disease. Review of Systems: Ten-point review of systems otherwise negative, as per HPI. Physical Examination: Vital Signs: He is afebrile. Stable. General: He is awake, alert, oriented x3, elderly male, in no acute distress. HEENT: Atraumatic, normocephalic. Neck: Supple. CVA: Regular rate and rhythm. Respiratory: Clear. Gastrointestinal: Soft, nontender. Minimal right-sided flank tenderness. Extremities: No clubbing, no edema. No calf tenderness. Neurologic: Grossly intact. Skin: No rashes. Psychiatric: Mood okay. Judgment fine. Laboratory Data: Reviewed and CT scan as mentioned above. UA shows 2+ blood. Electrolytes; sodium 142, potassium 3.9, chloride 109, CO2 24, BUN 20, creatinine 1.78, glucose 149, calcium 8.8. White c ount 12.5, hemoglobin and hematocrit 13 and 42, platelets 182. CT scan as mentioned above. Assessment: A 78-year-old male with 3 stones in the right upper ureter, portion of the pelvic inlet, measuring 6 mm, 6 mm, 9 mm. He has multiple stones in the right kidney, multiple stones in the left kidney. Plan: Plan is to go ahead and place a cysto stent on the right. Hold his blood thinners for now and hopefully get a clearance to hold his blood thinner for ESWL next week. ZOHAIB/JAKE Voice ID: [id number] Report ID: [id number]
[2019-02-22] MEDS ORDERED: Ringers Lactate 1,000 ML IV ONE (11:09)
[2019-02-22] MEDS ORDERED: FENTANYL CITR 100 MCG/2 ML ONE ×2 (11:18→12:07)
[2019-02-22] MEDS ORDERED: LIDOCAINE 1% MPF 5 ML VIAL ONE (11:23)
[2019-02-22] MEDS ORDERED: PROPOFOL 200 MG/20 ML VIAL IV ONE (11:23)
[2019-02-22] MEDS ORDERED: MIDAZOLAM HCL 2 MG/2 ML INJ ONE (11:23)
[2019-02-22] MEDS ORDERED: GENTAMICIN 100 MG/100 ML BAG 100 ML IV ONE (11:50)
[2019-02-22] MEDS ORDERED: EPHEDRINE SULF 50 MG/ML VIAL ONE (12:31)
[2019-02-22] MEDS ORDERED: Mastisol Adhesive Liq ONE (12:57)
--- NOTE | 2019-02-22 13:30 | RAD REPORT ---
EXAM DESCRIPTION: RAD - Urethrocystogrphy Retrograde - 02/22/2019 1:19 pm CLINICAL HISTORY: Right kidney stone, stent placement COMPARISON: None. TECHNIQUE: Fluoroscopic assisted placement of right ureteral stent performed FINDINGS: Fluoro time was 2 minutes 32 seconds. 35 fluoroscopic KUB images were obtained. Imaging shows stepwise placement of a pigtail stent into the right collecting system. No suspicious o r unexpected finding. IMPRESSION: Right ureteral stent placement as detailed.
--- NOTE | 2019-02-22 13:45 | PN ---
Date of Progress Note: 02/22/2019 Subjective: Patient is seen and examined, chart reviewed, and case discussed with RN and Dr. Sol. Patient is complaining of pain in the right flank. Medications: List reviewed. Physical Examination: Vital Signs: Temperature 98, heart rate 83, blood pressure 152/70, respirations 16, O2 96% on room a ir. General: Awake, alert, oriented x3. Elderly male, ill-appearing, in mild distress due to pain. CV: S1, S2. Regular rate and rhythm. Peripheral pulses present. Respiratory: Moving air well bilaterally. No wheezing. Gastrointestinal: Abdomen is soft, nontender, nondistended. Positive bowel sounds. Right flank cedrick n. Extremities: No clubbing, cyanosis, or edema. Neuro: Cranial nerves 2 through 12 intact grossly. No focal neurological deficits. Speech is katy l. Laboratory Data: Sodium 141, potassium 4.2, chloride 110, CO2 20, BUN 22, creatinine 2.16, glucose 1 38, calcium 8.6, phosphorus 3.4, magnesium 2.6. WBC 11.8, H and H 13.2 and 40.5, platelets 225, neut rophils 79%. Assessment And Plan: A 78-year-old male with: 1.Right ureteral stones, multiple. Continue with IV fluids. Continue n.p.o. status. Just IV pain medications. Patient was on morphine; however, he had a stomach upset and threw up. Has been switch ed over to fentanyl. May need to adjust duration from q.4 to q.2. I spoke with Dr. Sol, Urology. He requests cardiac clearance as the patient has history of paroxysmal atrial flutter and is on Xare lto. Patient's last dose was yesterday morning. Therefore, should be stable from that standpoint. However, we will discuss with Cardiology regarding need to bridge with Lovenox given his history of p aroxysmal atrial fibrillation, currently in sinus rhythm. We will continue with IV fluids. 2.Acute kidney injury secondary to hydronephrosis and ureteral stones. Kidney function is worsening . We will need to continue IV fluids. We will adjust rate. 3.Peripheral edema, unclear etiology, may be related to congestive heart failure or liver disease. 4.Essential hypertension, stable. Resume home medications as appropriate. 5.Hyperlipidemia, mixed. Continue statin. 6.History of cerebrovascular accident. Xarelto has been held due to procedure. 7.History of paroxysmal atrial flutter, currently in sinus rhythm. Xarelto being held at this time. Plan: Urologic procedure pending cardiac clearance. /JAKE Voice ID: [id number] Report ID: [id number]
[2019-02-22 14:57] LABS: Urine Appearance CLEAR; Urine Bilirubin NEGATIVE (NEG); Urine Blood 3+ (NEG); Urine Color YELLOW; Urine Glucose NEGATIVE (NEG); Urine Protein TRACE (NEG); Urine Specific Gravity <=1.005 (1.005-1.030); Urine Urobilinogen 0.2 mg/dL (0.2-1.0); Urine pH 7.5 (5.0-7.0)
[2019-02-22 16:21] LABS: Urine Bacteria 20-50 /HPF (NONE SEEN); Urine RBC >50 /HPF (NONE SEEN)
[2019-02-22 16:22] LABS: Urine Culture Reflex Order REFLEXED
[2019-02-22] MEDS: CARVEDILOL 25 MG TAB PO SCH (20:34)
[2019-02-22] MEDS ORDERED: ATORVASTATIN 80 MG TAB PO SCH (21:00)
[2019-02-23] MEDS: D5W 1,000 ML with NA BICARB 8.4% 100 MEQ IV SCH ×4 (00:31→08:00)
[2019-02-23 06:09] LABS: Absolute Lymphocytes (CBC) 1.6 K/uL (0.7-4.9); Basophils % 0.2 % (0-1.3); Hematocrit 34.3 % (39.6-49.0); Lymphocytes % 19.9 % (15.3-44.8); MPV 8.6 fL (7.6-11.3); RBC Red Blood Cell Count 3.49 M/uL (4.33-5.43)
[2019-02-23] MEDS ORDERED: PANTOPRAZOLE 40MG TABLET PO SCH (06:30)
[2019-02-23 06:35] LABS: Albumin 3.2 g/dL (3.4-5.0); Bilirubin Total 0.4 mg/dL (0.2-1.0); Potassium 3.7 mmol/L (3.5-5.1); Protein, Total 6.5 g/dL (6.4-8.2)
[2019-02-23] MEDS: CARVEDILOL 25 MG TAB PO SCH (08:34)
[2019-02-23] MEDS: CEFTRIAXONE/SWI 1gm 1 GM/10 ML SYR IVP SCH (08:35)
[2019-02-23] MEDS ORDERED: AMLODIPINE 5 MG TAB PO SCH (09:00)
[2019-02-23] MEDS ORDERED: MONTELUKAST 10 MG TAB PO SCH (09:00)
[2019-02-23] MEDS ORDERED: ASPIRIN 81 MG CHEWABLE TABLET PO SCH (09:53)
[2019-02-23] MEDS ORDERED: RIVAROXABAN 20 MG TABLET PO SCH (09:53)
--- NOTE | 2019-02-23 11:21 | PN ---
Mr. Boggs seems to be doing well after his urological procedure, no longer in pain. BUN and crea tinine are much improved, not having any signs or symptoms of cardiac instability. At this point, ca rdiology services will sign off. Please call us back if he wishes to re-consult on Mr. Boggs. WALTER/JAKE Voice ID: [id number] Report ID: [id number]
--- NOTE | 2019-02-24 05:02 | DS ---
Date of Discharge: 02/23/2019 Consultants: Dr. Soriano with Cardiology as well as Dr. Sol with Urology. Procedures: On 02/22/2019, cystoscopy, right retrograde pyelogram, ureteroscopy , right electrohydraulic lithotripsy, stone basket retrieval of right ureteral stone, double-J stent placement in the right ureter. Admitting Diagnoses: 1. Right ureteral stones, multiple. 2. Acute kidney injury secondary to hydronephrosis and ureteral stones. 3. Hydronephrosis. 4. Essential hypertension. 5. Hyperlipidemia. 6. History of cerebrovascular accident. 7. Atrial flutter, paroxysmal. Discharge Diagnoses: 1. Right ureteral stones, multiple, status post lithotripsy and basket retrieval. 2. Acute kidney injury secondary to hydronephrosis and ureteral stones, improved. 3. Peripheral edema, improving. 4. Essential hypertension, stable. 5. Hydronephrosis secondary to ureteral stones. 6. Mixed hyperlipidemia, stable. 7. History of cerebrovascular accident. 8. History of paroxysmal atrial flutter, on Xarelto. 9. Nonsustained ventricular tachycardia. Patient has a loop recorder and is following with Cardiology in [place]. Hospital Course: Patient is a 78-year-old male who was admitted to the hospital for right flank pain. Patient was found to have hydronephrosis, right ureteral stones. White count of 12.5 and kidney function of 1.7. CT scan showed ureteral stones measuring 6 mm and 9 mm. There were 3 stones in total. Patient was started on IV fluids and IV antibiotics. Patient was seen by Dr. Sol with Urology, who performed the procedure as mentioned above. Patient's Xarelto was held for 24 hours prior to the procedure. He takes Xarelto for paroxysmal atrial flutter and has a history of CVA. Patient's kidney function initially worsened to 2.16. IV fluids were continued. Patient improved. Patient's kidney function improved to 1.32 after the procedure. Patient was also seen by Dr. Soriano with Cardiology. His Xarelto was resumed after the procedure. His urine culture did not show any growth. His white blood cell count normalized. Patient was then cleared for discharge and was sent home in stable condition. Activity: As tolerated. Medications: As per medication reconciliation list. No driving or operating heavy machinery while on narcotics. Followup: Follow up with primary care physician in 2-3 days. Follow up with urologist, Dr. Sol, in 2 weeks for stent removal. Return to ER for worsening condition. Physical Examination: General: Awake, alert, oriented x3 elderly male. CV: S1, S2. Peripheral pulses present. RESPIRATORY: Moving air well bilaterally. Abdomen: Soft, nontender, nondistended. Positive bowel sounds. No right flank pain. Extremities: No clubbing, cyanosis, edema. Neurologic: Nonfocal. AADENDUM: patient had some beats of non sustained VTach. Patient has a holter monitor and is seeing cardiology in [place]. He is asymptomatic, on beta blockers. He was observed prior to discharge. Patient to call cariology office and have holter monitor activity downloaded. /JAKE Voice ID: [id number] Report ID: [id number]
== END 2019-02-23 13:24 | disposition home or self-care (01) ==
LOC: ER 15:09 → ERHOLD 17:09 → INTOOBSV 17:09 → 2ND 18:20
PROVIDERS: ADMIT Family Medicine; ATTEND Family Medicine
PROC: 0T768DZ Dilation of Right Ureter with Intraluminal Device, Via Natural or Artificial Opening Endoscopic (ICD-10-PCS; 2019-02-22)
PROC: 0TF68ZZ Fragmentation in Right Ureter, Via Natural or Artificial Opening Endoscopic (ICD-10-PCS; principal; 2019-02-22 11:30)
DX: N13.2 Hydronephrosis with renal and ureteral calculous obstruction (principal); E78.2 Mixed hyperlipidemia; I10 Essential (primary) hypertension; I48.0 Paroxysmal atrial fibrillation; I47.2 Ventricular tachycardia; R60.9 Edema, unspecified; Z79.1 Long term (current) use of non-steroidal anti-inflammatories (NSAID); Z79.01 Long term (current) use of anticoagulants; Z79.899 Other long term (current) drug therapy; Z86.73 Personal history of transient ischemic attack (TIA), and cerebral infarction without residual deficits
CPT/HCPCS: 52356; 96365; 96361; 93005; 85025 ×3; 81001; 87086; 80048; 36415 ×2; 83735; 84100; 80076; 88300; 81003; 84484; 83690; 80053 ×2; 82360; 76377; 74176; 74450; 51610; 94760 ×5; 96375; 99285; J2704; J2250; J3010 ×6; J2270; J1170; J1580; J0696 ×5; J7030 ×2; J2405 ×2; G0378 ×2; 87088

== ENCOUNTER 2019-03-09 11:40 | Observation (INO) | payer OTHER ==
--- OUTSIDE RECORDS SUMMARY | 2019-03-09 11:42 | XMS REPORT | Clinical Summary ---
:1940 Author Organization [facility] Address [address] [place] [address] Care Team Providers Name Role Phone Unavailable [...] Not on file Results Not on fileafter 03/08/2018 Insurance Payer Benefit Plan / Subscriber ID Type Phone Address Group [employer] - [employer] MEDICARE xxxxxxxx [facility] [phone] [address] MEDICARE [employer] HMO POS [id number] [place] [address] Advance Directives For more information, please contact:[address] [phone] Code Status Date Activated Date Inactivated Comments Full Code 08/26/2017 2:23 PM 08/30/2017 4:32 PM This code status was determined by: Patient
--- OUTSIDE RECORDS SUMMARY | 2019-03-09 11:43 | XMS REPORT ---
:1940 [facility] Address [address] [place] [address] Care Team Providers Name Role Phone MARIZOL [...] Comments SODIUM (BEAKER) (test 140 meq/L 136-145 rooe=697) POTASSIUM (BEAKER) (test 3.4 meq/L 3.5-5.1 fzmk=750) CHLORIDE (BEAKER) (test 110 meq/L 98-107 vnna=767) CO2 (BEAKER) (test auxw=906) 22 meq/L 22-29 BLOOD UREA NITROGEN (BEAKER) 19 mg/dL 7-21 (test oduf=341) CREATININE (BEAKER) (test 0.97 mg/dL 0.57-1.25 jyws=168) GLUCOSE RANDOM (BEAKER) 102 mg/dL 70-105 (test ycpe=506) CALCIUM (BEAKER) (test 8.9 mg/dL 8.4-10.2 vipm=070) EGFR (BEAKER) (test 75 mL/min/1.73 sq m ESTIMATED GFR IS NOT uydd=4057) ACCURATE CREATININE CLEARANCE IN PREDICTING GLOMERULAR FILTRATION RATE. ESTIMATED GFR IS NOT APPLICABLE FOR DIALYSIS PATIENTS. CBC W/PLT COUNT & AUTO [id number] 05:03:00 Test Item Value Reference Range Comments WHITE BLOOD CELL COUNT (BEAKER) (test oryx=787) 7.7 K/ L 3.5-10.5 RED BLOOD CELL COUNT (BEAKER) (test qynk=120) 4.11 M/ L 4.63-6.08 HEMOGLOBIN (BEAKER) (test poiv=138) 13.2 GM/DL 13.7-17.5 HEMATOCRIT (BEAKER) (test bgtz=709) 40.1 % 40.1-51.0 MEAN CORPUSCULAR VOLUME (BEAKER) (test uvjg=067) 97.6 fL 79.0-92.2 MEAN CORPUSCULAR HEMOGLOBIN (BEAKER) (test 32.1 pg 25.7-32.2 bgkw=969) MEAN CORPUSCULAR HEMOGLOBIN CONC (BEAKER) (test 32.9 GM/DL 32.3-36.5 feda=956) RED CELL DISTRIBUTION WIDTH (BEAKER) (test 12.2 % 11.6-14.4 yzhk=932) PLATELET COUNT (BEAKER) (test snac=798) 185 K/CU MM 150-450 MEAN PLATELET VOLUME (BEAKER) (test itse=213) 10.3 fL 9.4-12.4 NUCLEATED RED BLOOD CELLS (BEAKER) (test 0 /100 WBC 0-0 vzrc=105) NEUTROPHILS RELATIVE PERCENT (BEAKER) (test 61 % vbqx=686) LYMPHOCYTES RELATIVE PERCENT (BEAKER) (test 26 % ggfq=246) MONOCYTES RELATIVE PERCENT (BEAKER) (test 10 % kklm=394) EOSINOPHILS RELATIVE PERCENT (BEAKER) (test 2 % qtwv=295) BASOPHILS RELATIVE PERCENT (BEAKER) (test 1 % zbtr=999) NEUTROPHILS ABSOLUTE COUNT (BEAKER) (test 4.70 K/ L 1.78-5.38 pqqx=131) LYMPHOCYTES ABSOLUTE COUNT (BEAKER) (test 2.01 K/ L 1.32-3.57 nfue=188) MONOCYTES ABSOLUTE COUNT (BEAKER) (test 0.76 K/ L 0.30-0.82 scwk=051) EOSINOPHILS ABSOLUTE COUNT (BEAKER) (test 0.15 K/ L 0.04-0.54 ewql=338) BASOPHILS ABSOLUTE COUNT (BEAKER) (test 0.04 K/ L 0.01-0.08 aorg=601) IMMATURE GRANULOCYTES-RELATIVE PERCENT (BEAKER) 0 % 0-1 (test xzou=5611) POCT-GLUCOSE [id number] 16:47:00 Test Item Value Reference Range Comments POC-GLUCOSE METER (BEAKER) 125 mg/dL 70-110 TESTED AT [facility] [address] [facility] (test nrew=0583) [facility] [address] POCT-GLUCOSE [id number] 11:42:00 Test Item Value Reference Range Comments POC-GLUCOSE METER (BEAKER) 93 mg/dL 70-110 TESTED AT [facility] [address] [facility] (test lrkn=5389) [facility] [address] POCT-GLUCOSE [id number] 08:02:00 Test Item Value Reference Range Comments POC-GLUCOSE METER (BEAKER) 89 mg/dL 70-110 TESTED AT [place] [id number] [facility] (test btdv=7178) [facility] [address] BASIC METABOLIC [id number] 06:12:00 Test Item Value Reference Range Comments SODIUM (BEAKER) (test 140 meq/L 136-145 lave=356) POTASSIUM (BEAKER) (test 3.7 meq/L 3.5-5.1 vdzc=128) CHLORIDE (BEAKER) (test 110 meq/L 98-107 robg=972) CO2 (BEAKER) (test 20 meq/L 22-29 vwtr=105) BLOOD UREA NITROGEN 15 mg/dL 7-21 (BEAKER) (test vuwk=313) CREATININE (BEAKER) (test 1.02 mg/dL 0.57-1.25 uczp=575) GLUCOSE RANDOM (BEAKER) 105 mg/dL 70-105 (test qrqh=817) CALCIUM (BEAKER) (test 8.7 mg/dL 8.4-10.2 hhzt=249) EGFR (BEAKER) (test 71 mL/min/1.73 sq m ESTIMATED GFR IS NOT wvaf=1219) ACCURATE CREATININE CLEARANCE IN PREDICTING GLOMERULAR FILTRATION RATE. ESTIMATED GFR IS NOT APPLICABLE FOR DIALYSIS PATIENTS. CBC W/PLT COUNT & AUTO [id number] 05:12:00 Test Item Value Reference Range Comments WHITE BLOOD CELL COUNT (BEAKER) (test xhbu=163) 8.9 K/ L 3.5-10.5 RED BLOOD CELL COUNT (BEAKER) (test zbqi=426) 4.20 M/ L 4.63-6.08 HEMOGLOBIN (BEAKER) (test tndp=836) 13.5 GM/DL 13.7-17.5 HEMATOCRIT (BEAKER) (test yafl=893) 42.0 % 40.1-51.0 MEAN CORPUSCULAR VOLUME (BEAKER) (test gnvt=815) 100.0 fL 79.0-92.2 MEAN CORPUSCULAR HEMOGLOBIN (BEAKER) (test 32.1 pg 25.7-32.2 dfaz=414) MEAN CORPUSCULAR HEMOGLOBIN CONC (BEAKER) (test 32.1 GM/DL 32.3-36.5 xnxs=520) RED CELL DISTRIBUTION WIDTH (BEAKER) (test 12.6 % 11.6-14.4 lpee=372) PLATELET COUNT (BEAKER) (test kmhk=785) 177 K/CU MM 150-450 MEAN PLATELET VOLUME (BEAKER) (test lxow=358) 10.2 fL 9.4-12.4 NUCLEATED RED BLOOD CELLS (BEAKER) (test 0 /100 WBC 0-0 ykes=650) NEUTROPHILS RELATIVE PERCENT (BEAKER) (test 64 % wsqp=902) LYMPHOCYTES RELATIVE PERCENT (BEAKER) (test 24 % pxql=155) MONOCYTES RELATIVE PERCENT (BEAKER) (test 10 % opfl=005) EOSINOPHILS RELATIVE PERCENT (BEAKER) (test 2 % mzyh=515) BASOPHILS RELATIVE PERCENT (BEAKER) (test 1 % mofy=469) NEUTROPHILS ABSOLUTE COUNT (BEAKER) (test 5.68 K/ L 1.78-5.38 rgni=335) LYMPHOCYTES ABSOLUTE COUNT (BEAKER) (test 2.09 K/ L 1.32-3.57 brmj=278) MONOCYTES ABSOLUTE COUNT (BEAKER) (test 0.88 K/ L 0.30-0.82 flaf=311) EOSINOPHILS ABSOLUTE COUNT (BEAKER) (test 0.17 K/ L 0.04-0.54 ikyj=534) BASOPHILS ABSOLUTE COUNT (BEAKER) (test 0.04 K/ L 0.01-0.08 kckw=873) IMMATURE GRANULOCYTES-RELATIVE PERCENT (BEAKER) 0 % 0-1 (test jslk=2952) POCT-GLUCOSE [id number] 21:19:00 Test Item Value Reference Range Comments POC-GLUCOSE METER (BEAKER) 106 mg/dL 70-110 TESTED AT [facility] [address] [facility] (test zdfw=5677) [facility] [address] BASIC METABOLIC [id number] 04:05:00 Test Item Value Reference Range Comments SODIUM (BEAKER) (test 143 meq/L 136-145 syyb=288) POTASSIUM (BEAKER) (test 3.7 meq/L 3.5-5.1 Specimen slightly vaai=656) hemolyzed CHLORIDE (BEAKER) (test 113 meq/L 98-107 mpui=969) CO2 (BEAKER) (test 20 meq/L 22-29 dwyx=101) BLOOD UREA NITROGEN 10 mg/dL 7-21 (BEAKER) (test szaf=123) CREATININE (BEAKER) (test 0.88 mg/dL 0.57-1.25 Specimen slightly vlkt=141) hemolyzed GLUCOSE RANDOM (BEAKER) 110 mg/dL 70-105 (test cxrg=937) CALCIUM (BEAKER) (test 8.3 mg/dL 8.4-10.2 yzrg=062) EGFR (BEAKER) (test 84 mL/min/1.73 sq m ESTIMATED GFR IS NOT mndy=7599) ACCURATE CREATININE CLEARANCE IN PREDICTING GLOMERULAR FILTRATION RATE. ESTIMATED GFR IS NOT APPLICABLE FOR DIALYSIS PATIENTS. CBC W/PLT COUNT & AUTO [id number] 03:49:00 Test Item Value Reference Range Comments WHITE BLOOD CELL COUNT (BEAKER) (test oddm=257) 8.8 K/ L 3.5-10.5 RED BLOOD CELL COUNT (BEAKER) (test djpa=892) 4.14 M/ L 4.63-6.08 HEMOGLOBIN (BEAKER) (test tqnj=061) 13.3 GM/DL 13.7-17.5 HEMATOCRIT (BEAKER) (test ajhh=574) 40.8 % 40.1-51.0 MEAN CORPUSCULAR VOLUME (BEAKER) (test ilsl=132) 98.6 fL 79.0-92.2 MEAN CORPUSCULAR HEMOGLOBIN (BEAKER) (test 32.1 pg 25.7-32.2 rhlo=322) MEAN CORPUSCULAR HEMOGLOBIN CONC (BEAKER) (test 32.6 GM/DL 32.3-36.5 hrxt=679) RED CELL DISTRIBUTION WIDTH (BEAKER) (test 12.6 % 11.6-14.4 ajdv=789) PLATELET COUNT (BEAKER) (test aunw=509) 171 K/CU MM 150-450 MEAN PLATELET VOLUME (BEAKER) (test badb=449) 10.0 fL 9.4-12.4 NUCLEATED RED BLOOD CELLS (BEAKER) (test 0 /100 WBC 0-0 jruj=382) NEUTROPHILS RELATIVE PERCENT (BEAKER) (test 74 % ndnm=751) LYMPHOCYTES RELATIVE PERCENT (BEAKER) (test 15 % trlk=810) MONOCYTES RELATIVE PERCENT (BEAKER) (test 10 % qczv=256) EOSINOPHILS RELATIVE PERCENT (BEAKER) (test 1 % krbl=829) BASOPHILS RELATIVE PERCENT (BEAKER) (test 0 % nuff=742) NEUTROPHILS ABSOLUTE COUNT (BEAKER) (test 6.52 K/ L 1.78-5.38 gtrq=596) LYMPHOCYTES ABSOLUTE COUNT (BEAKER) (test 1.33 K/ L 1.32-3.57 anyr=408) MONOCYTES ABSOLUTE COUNT (BEAKER) (test 0.85 K/ L 0.30-0.82 cnzf=789) EOSINOPHILS ABSOLUTE COUNT (BEAKER) (test 0.07 K/ L 0.04-0.54 wqqk=742) BASOPHILS ABSOLUTE COUNT (BEAKER) (test 0.02 K/ L 0.01-0.08 xkfk=389) IMMATURE GRANULOCYTES-RELATIVE PERCENT (BEAKER) 0 % 0-1 (test nrbv=7092) MR, MRA, BRAIN, WITHOUT [id number] 14:29:00Reason for exam:-> StrokeWhat is the patient's sedation requirement?->No SedationIs the patientclaustrophobic?->NoFINAL REPORT MRA brain and neck without contrast 08/27/2017 2:28 PM CLINICAL HISTORY: StrokeIschemic stroke COMPARISON: None available TECHNIQUE: Two- and three-dimensional yjjz-qb-camaaz MRA images of the intra- and extracranial arterial vasculature was performed, from which maximal intensity projection 3-D reconstructions were created. FINDINGS: MRA neck: There is no vessel occlusion or flow-limiting stenosis. There is no NASCET-quantifiable cervical internal carotid artery stenosis. Flow is antegrade in both vertebral arteries. MRA [facility] [place]: There is no vessel occlusion, flow-limiting stenosis, or aneurysm. IMPRESSION: Negative intra- and extracranial MRAs. Signed: Blaise Rangel Verified Date/ Time: 08/27/2017 14:29:54 Reading Location: [address] Neuro Reading Room MR, MRA, NECK, WITHOUT IV [id number] 14:29:00FINAL REPORT MRA brain and neck without contrast 08/27/2017 2:28 PM CLINICAL HISTORY: StrokeIschemic stroke COMPARISON: None available TECHNIQUE: Two- and three- dimensional jmlo-bb-xujldf MRA images of the intra- and extracranial arterial vasculature was performed, from which maximal intensity projection 3-D reconstructions were created. FINDINGS: MRA neck: There is no vessel occlusion or flow-limiting stenosis. There is no NASCET-quantifiable cervical internal carotid artery stenosis. Flow is antegrade in both vertebral arteries. MRA [place] [place]: There is no vessel occlusion, flow-limiting stenosis, or aneurysm. IMPRESSION: Negative intra- and extracranial MRAs. Signed: Blaise Rangel Verified Date/Time: 08/27/2017 14:29:54 Reading Location: [address] Neuro Reading Room MR, BRAIN, WITHOUT [id number] 14:08:00Reason for exam:->StrokeWhat is the patient's sedation [...] Rangel MDReport Verified Date/Time: 14:08:46 Reading Location: [facility] [id number] Neuro Reading Room BASI METABOLIC [id number] 06:09:00 Test Item Value Reference Range Comments SODIUM (BEAKER) (test 141 meq/L 136-145 ittc=309) POTASSIUM (BEAKER) (test 3.6 meq/L 3.5-5.1 Specimen slightly wcpt=372) hemolyzed CHLORIDE (BEAKER) (test 107 meq/L 98-107 dqep=318) CO2 (BEAKER) (test 22 meq/L 22-29 neaz=890) BLOOD UREA NITROGEN 12 mg/dL 7-21 (BEAKER) (test rnif=179) CREATININE (BEAKER) (test 0.92 mg/dL 0.57-1.25 Specimen slightly pcko=407) hemolyzed GLUCOSE RANDOM (BEAKER) 123 mg/dL 70-105 (test endd=400) CALCIUM (BEAKER) (test 8.8 mg/dL 8.4-10.2 jezq=478) EGFR (BEAKER) (test 80 mL/min/1.73 sq m ESTIMATED GFR IS NOT dzlp=7969) ACCURATE CREATININE CLEARANCE IN PREDICTING GLOMERULAR FILTRATION RATE. ESTIMATED GFR IS NOT APPLICABLE FOR DIALYSIS PATIENTS. FastingLIPID [id number] 06:09:00 Test Item Value Reference Range Comments TRIGLYCERIDES (BEAKER) (test 142 mg/dL Specimen slightly hemolyzed nriw=272) CHOLESTEROL (BEAKER) (test 184 mg/dL Specimen slightly hemolyzed glyq=809) HDL CHOLESTEROL (BEAKER) (test 45 mg/dL vytw=935) LDL CHOLESTEROL CALCULATED 111 mg/dL (BEAKER) (test fhxx=671) Triglyceride Reference Range: Low Risk <150 Borderline 150- 199 High Risk 200-499 Very High Risk >=500Cholesterol Reference Range: Low Risk <200 Borderline 200-239 High Risk > 240HDL Cholesterol Reference Range: Low Risk >=60 High Risk <40LDL Cholesterol Reference Range: Optimal <100 Near Optimal 100-129 Borderline 130-159 High 160-189 Very High >=190 FastingCBC W/PLT COUNT & AUTO [id number] 05:41:00 Test Item Value Reference Range Comments WHITE BLOOD CELL COUNT (BEAKER) (test ucyj=096) 8.8 K/ L 3.5-10.5 RED BLOOD CELL COUNT (BEAKER) (test csjl=557) 4.29 M/ L 4.63-6.08 HEMOGLOBIN (BEAKER) (test spfq=708) 13.6 GM/DL 13.7-17.5 HEMATOCRIT (BEAKER) (test lluk=166) 41.0 % 40.1-51.0 MEAN CORPUSCULAR VOLUME (BEAKER) (test hdem=074) 95.6 fL 79.0-92.2 MEAN CORPUSCULAR HEMOGLOBIN (BEAKER) (test 31.7 pg 25.7-32.2 gatq=979) MEAN CORPUSCULAR HEMOGLOBIN CONC (BEAKER) (test 33.2 GM/DL 32.3-36.5 atcw=041) RED CELL DISTRIBUTION WIDTH (BEAKER) (test 12.3 % 11.6-14.4 lplc=653) PLATELET COUNT (BEAKER) (test ozxk=486) 180 K/CU MM 150-450 MEAN PLATELET VOLUME (BEAKER) (test rvet=909) 10.3 fL 9.4-12.4 NUCLEATED RED BLOOD CELLS (BEAKER) (test 0 /100 WBC 0-0 sevm=992) NEUTROPHILS RELATIVE PERCENT (BEAKER) (test 75 % zyng=635) LYMPHOCYTES RELATIVE PERCENT (BEAKER) (test 17 % lxta=442) MONOCYTES RELATIVE PERCENT (BEAKER) (test 8 % obrj=906) EOSINOPHILS RELATIVE PERCENT (BEAKER) (test 0 % hvcv=306) BASOPHILS RELATIVE PERCENT (BEAKER) (test 0 % vbpo=674) NEUTROPHILS ABSOLUTE COUNT (BEAKER) (test 6.58 K/ L 1.78-5.38 eurz=382) LYMPHOCYTES ABSOLUTE COUNT (BEAKER) (test 1.52 K/ L 1.32-3.57 zvmb=958) MONOCYTES ABSOLUTE COUNT (BEAKER) (test 0.67 K/ L 0.30-0.82 lvud=805) EOSINOPHILS ABSOLUTE COUNT (BEAKER) (test 0.03 K/ L 0.04-0.54 npfn=073) BASOPHILS ABSOLUTE COUNT (BEAKER) (test 0.02 K/ L 0.01-0.08 bjkt=206) IMMATURE GRANULOCYTES-RELATIVE PERCENT (BEAKER) 0 % 0-1 (test nkir=2552) TROPONIN [id number] 01:47:00 Test Item Value Reference Range Comments TROPONIN I (BEAKER) (test wkhg=375) 0.02 ng/mL 0.00-0.03 Troponin I (TnI) levels [...] and persistent tachyarrhythmia.RAD, CHEST, 1 VIEW, NON [id number] 19:14:00Reason for exam:->Admission CXR; cvaShould this be performed at the bedside?->YesFINAL REPORT INDICATION: Admission CXR; cva COMPARISON: None TECHNIQUE: Single frontal view of the chest. FINDINGS: Lungs and pleura: Clear lungs. No effusion.Heart and mediastinum: Normal heart size. Unremarkable mediastinal contours.Osseous structures: No acute abnormality.Other: None. IMPRESSION: No acute intrathoracic abnormality. Signed : JR Gomez Robert MDReport Verified Date/Time: 08/26/2017 19:14:38 Reading Location: [address] Reading Room [id number] 18:43:00 Test Item Value Reference Range Comments FIBRINOGEN LEVEL (BEAKER) (test morq=870) 268 mg/dl 225-434 [id number] 18:43:00 Test Item Value Reference Range Comments PARTIAL THROMBOPLASTIN TIME (BEAKER) (test 27.9 seconds 22.5-36.0 ucwq=621) PROTHROMBIN [id number] 18:42:00 Test Item Value Reference Range Comments PROTIME (BEAKER) (test bzlv=323) 13.8 seconds 11.7-14.7 INR (WEST) (test jfgq=598) 1.1 <=5.9 RECOMMENDED COUMADIN/WARFARIN INR THERAPY RANGESSTANDARD DOSE: 2.0 - 3.0 Includes: PROPHYLAXIS forvenous thrombosis, systemic embolization; TREATMENT for venous thrombosis and/or pulmonary embolus.HIGH RISK: Target INR is 2.5-3.5 for patients with mechanical heart valves.HEMOGLOBIN [id number] 17:54:00 Test Item Value Reference Range Comments HEMOGLOBIN A1C (WEST) (test sabt=731) 5.5 % 4.3-6.1 VITAMIN B12 AND [id number] 17:45:00 Test Item Value Reference Range Comments VITAMIN B12 (WEST) (test wapq=147) 1294 pg/mL 213-816 FOLATE (WEST) (test auoy=568) > ng/mL >=7.0 CT, BRAIN, WITHOUT [id number] 17:32:00FINAL REPORT CT, BRAIN, WITHOUT CONTRAST INDICATION: [...] MDReport Verified Date/Time: 08/26/2017 17:32:46 Reading Location: [address] Reading Room TSH/FREE T4 IF [id number] 16:47:00 Test Item Value Reference Range Comments THYROID STIMULATING HORMONE (BEAKER) (test 0.60 uIU/mL 0.35-4.94 wuwp=670) CREATINE KINASE (CK), TOTAL AND [id number] 16:17:00 Test Item Value Reference Range Comments CREATINE KINASE TOTAL (BEAKER) (test rteu=906) 121 U/L 29-200 CREATINE KINASE-MB (BEAKER) (test fkfw=807) 1.5 ng/mL 0.0-6.6 CREATINE KINASE-MB INDEX (BEAKER) (test neoo=583) 1.2 % CK-MB Reference Range:<6.7 Normal6.7-10.0 Borderline>10.0 AbnormalTROPONIN [id number] 16:17:00 Test Item Value Reference Range Comments TROPONIN I (BEAKER) (test nwli=685) < ng/mL 0.00-0.03 Troponin I (TnI) levels [...] acute neurological disease, and persistent tachyarrhythmia.HEPATIC FUNCTION [id number] 16:11: 00 Test Item Value Reference Range Comments TOTAL PROTEIN (BEAKER) (test ntgk=146) 7.0 gm/dL 6.0-8.3 ALBUMIN (BEAKER) (test kulc=5190) 4.0 g/dL 3.5-5.0 BILIRUBIN TOTAL (BEAKER) (test oxzj=741) 0.3 mg/dL 0.2-1.2 BILIRUBIN DIRECT (BEAKER) (test lpvg=231) 0.1 mg/dL 0.1-0.5 ALKALINE PHOSPHATASE (BEAKER) (test durx=985) 148 U/L 40-150 AST (SGOT) (BEAKER) (test pizg=024) 23 U/L 5-34 ALT (SGPT) (BEAKER) (test jmbo=742) 21 U/L 6-55 BASIC METABOLIC [id number] 16:11:00 Test Item Value Reference Range Comments SODIUM (BEAKER) (test 142 meq/L 136-145 jrpe=598) POTASSIUM (BEAKER) (test 4.3 meq/L 3.5-5.1 mvtc=416) CHLORIDE (BEAKER) (test 107 meq/L 98-107 ghep=526) CO2 (BEAKER) (test 24 meq/L 22-29 aqce=536) BLOOD UREA NITROGEN 10 mg/dL 7-21 (BEAKER) (test edua=095) CREATININE (BEAKER) (test 0.93 mg/dL 0.57-1.25 visy=569) GLUCOSE RANDOM (BEAKER) 130 mg/dL 70-105 (test ieyv=273) CALCIUM (BEAKER) (test 8.7 mg/dL 8.4-10.2 tswe=850) EGFR (BEAKER) (test 79 mL/min/1.73 sq m ESTIMATED GFR IS NOT cjal=4063) ACCURATE CREATININE CLEARANCE IN PREDICTING GLOMERULAR FILTRATION RATE. ESTIMATED GFR IS NOT APPLICABLE FOR DIALYSIS PATIENTS. CBC W/PLT COUNT & AUTO [id number] 15:57:00 Test Item Value Reference Range Comments WHITE BLOOD CELL COUNT (BEAKER) (test vgqz=775) 11.7 K/ L 3.5-10.5 RED BLOOD CELL COUNT (BEAKER) (test yjcb=023) 4.42 M/ L 4.63-6.08 HEMOGLOBIN (BEAKER) (test wguc=684) 14.3 GM/DL 13.7-17.5 HEMATOCRIT (BEAKER) (test uebs=192) 43.1 % 40.1-51.0 MEAN CORPUSCULAR VOLUME (BEAKER) (test ymko=734) 97.5 fL 79.0-92.2 MEAN CORPUSCULAR HEMOGLOBIN (BEAKER) (test 32.4 pg 25.7-32.2 xmhu=978) MEAN CORPUSCULAR HEMOGLOBIN CONC (BEAKER) (test 33.2 GM/DL 32.3-36.5 bpqa=335) RED CELL DISTRIBUTION WIDTH (BEAKER) (test 12.1 % 11.6-14.4 osqs=944) PLATELET COUNT (BEAKER) (test zbyy=218) 179 K/CU MM 150-450 MEAN PLATELET VOLUME (BEAKER) (test horf=339) 10.1 fL 9.4-12.4 NUCLEATED RED BLOOD CELLS (BEAKER) (test 0 /100 WBC 0-0 ywgi=725) NEUTROPHILS RELATIVE PERCENT (BEAKER) (test 85 % qnmz=984) LYMPHOCYTES RELATIVE PERCENT (BEAKER) (test 10 % nfcs=184) MONOCYTES RELATIVE PERCENT (BEAKER) (test 4 % liip=246) EOSINOPHILS RELATIVE PERCENT (BEAKER) (test 0 % avcj=026) BASOPHILS RELATIVE PERCENT (BEAKER) (test 0 % qxly=693) NEUTROPHILS ABSOLUTE COUNT (BEAKER) (test 9.99 K/ L 1.78-5.38 dusv=173) LYMPHOCYTES ABSOLUTE COUNT (BEAKER) (test 1.15 K/ L 1.32-3.57 ubnw=421) MONOCYTES ABSOLUTE COUNT (BEAKER) (test 0.48 K/ L 0.30-0.82 yyef=905) EOSINOPHILS ABSOLUTE COUNT (BEAKER) (test 0.03 K/ L 0.04-0.54 cdhk=041) BASOPHILS ABSOLUTE COUNT (BEAKER) (test 0.03 K/ L 0.01-0.08 kixe=015) IMMATURE GRANULOCYTES-RELATIVE PERCENT (BEAKER) 0 % 0-1 (test gyxh=8505)
[2019-03-09] MEDS ORDERED: NA CHLORIDE 0.9% 1,000 ML ONE ×2 (12:18→14:14)
[2019-03-09 12:40] LABS: Absolute Lymphocytes (CBC) 0.7 K/uL (0.7-4.9); Basophils % 0.4 % (0-1.3); Hematocrit 28.1 % (39.6-49.0); Lymphocytes % 7.3 % (15.3-44.8); MPV 8.7 fL (7.6-11.3); Protime INR 1.29; RBC Red Blood Cell Count 2.89 M/uL (4.33-5.43)
[2019-03-09 12:59] LABS: Albumin 2.8 g/dL (3.4-5.0); Bilirubin Direct 0.2 mg/dL (0-0.2); Bilirubin Total 0.5 mg/dL (0.2-1.0); Magnesium 2.4 mg/dL (1.8-2.4); Potassium 3.6 mmol/L (3.5-5.1); Protein, Total 6.7 g/dL (6.4-8.2); Troponin (Emerg Dept Use Only) 0.02 ng/mL (0.0-0.045)
--- NOTE | 2019-03-09 13:25 | RAD REPORT ---
EXAM DESCRIPTION: CT - Stone Protocol - 03/09/2019 1:16 pm CLINICAL HISTORY: Fatigue, chills, dizziness, history kidney stones COMPARISON: February 21 TECHNIQUE: Axial 5 mm thick images were obtained without oral or IV contrast. The uhtuu-tc-pjvu span s the entirety of the system partially obscuring uppermost abdomen and lung bases. All CT scans are performed using dose optimization technique as appropriate and may include automated exposure control or mA/KV adjustment according to patient size. FINDINGS: The large stone seen in the right ureter at the pelvic inlet on the February 21 study is no l onger present. No remnant stone in the ureter. There is a mild remnant dilatation of the right ureter with minimal stranding along the course of the right ureter. There is slightly greater stranding in the perinephric fat of the right kidney. The fullness of the right-sided collecting system may be the new baseline for the patient following the prior obstructive event. A current obstructing stone is n ot present. No left-sided hydronephrosis or stone. Santana of the urinary bladder are mildly prominent for the amount of distention. Cystitis is not excluded. No suspicious renal masses. Isodense masses a nd pyelonephritis are not excluded on a stone protocol CT scan. No significant adrenal finding. Cysts in the upper pole of the left kidney are not significantly different from prior study. Nonobstructin g numerous calculi in the left kidney and the few calculi in the right kidney are unchanged. Imaged portions of the liver, spleen and pancreas show no suspicious findings on non-contrast imaging . Small stones are seen layering in the dependent portion of the gallbladder. No active gallbladder p rocess seen. No biliary tree dilatation. No suspicious bowel findings. Appendix is normal. No mass or bulky lymphadenopathy. Fat extends into small inguinal hernias. A small fat only umbilical hernia present. No free air, free fluid or pneumatosis. Disc and bony degenerative changes are present. IMPRESSION: Mild dilatation of the right collecting system is present without an obstructing calculu s. The patient had a large obstructing stone February 21 and current dilatation may be remnant from that the event. Multiple nonobstructing calyx calculi are present similar to February 21. Santana of the urinary bladder are relatively prominent for this amount of distention. Cystitis is not excluded. Isodense masses and pyelonephritis are not excluded on stone protocol study. No acute GI finding.
--- NOTE | 2019-03-09 14:19 | RAD REPORT ---
EXAM DESCRIPTION: RAD - Chest Single View - 03/09/2019 12:43 pm CLINICAL HISTORY: Shortness of breath COMPARISON: August 2017 TECHNIQUE: AP portable chest image was obtained 1224 hours . FINDINGS: Lungs are clear. Heart and vasculature are normal. No measurable pleural effusion and no p neumothorax. No acute bony abnormality seen. No acute aortic findings suspected. IMPRESSION: No acute cardiopulmonary process. No significant interval change.
--- NOTE | 2019-03-09 15:12 | ER ---
Nurse's Notes [facility] Name: Dayron Boggs Age: 78 yrs Sex: Male : 1940 Arrival Date: 03/09/2019 Time: 11:43 Bed 23 Private MD: Mario Esparza T Diagnosis: Anemia, unspecified;Unspecified kidney failure;Fever, unspecified;Hypotension;Retention of urine;Cystitis Presentation: 03/09 11:51 Presenting complaint: Patient states: Fatigue, dizziness, and chills x 2 days. ph Transition of care: patient was not received from another setting of care. Onset of symptoms was March 09, 2019. Risk Assessment: Do you want to hurt yourself or someone else? Patient reports no desire to harm self or others. Care prior to arrival: None. 11:51 Method Of Arrival: Ambulatory ph 11:51 Acuity: JESUS 2 ph 13:10 Initial Sepsis Screen: Does the patient meet any 2 criteria? No. Patient's initial mg2 sepsis screen is negative. Does the patient have a suspected source of infection? No. Patient's initial sepsis screen is negative. Historical: - Allergies: 11:55 No Known Allergies; ph - Home Meds: 13:12 amlodipine 5 mg tab 1 tab once daily [Active]; aspirin 81 mg Oral TbEC twice weekly mg2 [Active]; atorvastatin 80 mg Oral tab 1 tab once daily [Active]; carvedilol Oral [Active]; gabapentin 300 mg Oral cap Q8H [Active]; meloxicam 15 mg Oral tab 1 tab once daily [Active]; Xarelto 20 mg Oral tab 1 tab once daily [Active]; - PMHx: 11:55 CVA; Hyperlipidemia; Hypertension; ph - Immunization history:: Flu vaccine status is unknown. - Social history:: Smoking status: unknown. - Family history:: not pertinent. - Ebola Screening: : No symptoms or risks identified at this time. Screenin:06 Abuse screen: Denies threats or abuse. Denies injuries from another. Nutritional mg2 screening: No deficits noted. Tuberculosis screening: No symptoms or risk factors identified. Fall Risk IV access (20 points). Assessment: 13:09 General: Appears in no apparent distress. comfortable, Behavior is calm, cooperative. mg2 Pain: Denies pain. Neuro: Level of Consciousness is awake, alert, obeys commands, Oriented to person, place, time, situation, Reports weakness in whole body. Cardiovascular: Capillary refill < 3 seconds Patient's skin is warm and dry. Respiratory: Airway is patent Respiratory effort is even, unlabored, Respiratory pattern is regular, symmetrical. GI: No signs and/or symptoms were reported involving the gastrointestinal system. : No signs and/or symptoms were reported regarding the genitourinary system. EENT: No signs and/or symptoms were reported regarding the EENT system. Derm: Skin is intact, is healthy with good turgor, Skin is pink, warm \T\ dry. normal. Musculoskeletal: Circulation, motion, and sensation intact. Capillary refill Reports weakness in whole body. 13:12 Reassessment: patient sent to ct scan via wheelchair. mg2 17:30 Reassessment: seen and examined by dr. wood advised for admission. mg2 Vital Signs: 11:53 BP 92 / 45; Pulse 79; Resp 18; Temp 99.3; Pulse Ox 97% on R/A; Weight 83.91 kg; ph 12:05 BP 100 / 62; Pulse 73; Resp 18; Pulse Ox 95% on R/A; Pain 0/10; mg2 13:28 BP 92 / 47; Pulse 72; Resp 18; Temp 98.3(O); Pulse Ox 100% on R/A; mg2 14:06 BP 98 / 46; Pulse 69; Resp 18; Pulse Ox 100% on R/A; mg2 17:24 BP 103 / 79; Pulse 94; Resp 18; Temp 98.3; Pulse Ox 100% on R/A; mg2 ED Course: 11:43 Patient arrived in ED. mr 11:43 Mario Esparza MD is Private Physician. mr 11:53 Triage completed. ph 11:55 Arm band placed on Patient placed in an exam room. ph 11:58 Migue Hartley MD is Attending Physician. selene 12:00 Jass Blum RN is Primary Nurse. mg2 12:10 EKG done, by ED staff, reviewed by Migue Hartley MD. Inserted. jp3 12:11 Placed in gown. Bed in low position. Call light in reach. Side rails up X 1. Warm jp3 blanket given. Verbal reassurance given. trolley collector on. Pulse ox on. NIBP on. 12:30 Inserted saline lock: 20 gauge in right antecubital area, using aseptic technique. jp3 Blood collected. 12:30 Initial lab(s) drawn, by me, sent to lab. First set of blood cultures drawn by me. jp3 12:45 XRAY Chest (1 view) In Process Unspecified. EDMS 12:55 Second set of blood cultures drawn. jp3 13:00 Blood Culture Adult (2) Sent. jp3 13:11 No provider procedures requiring assistance completed. mg2 13:16 CT Stone Protocol In Process Unspecified. EDMS 15:06 Gaby Wood MD is Hospitalizing Provider. selene 17:23 Patient admitted, IV remains in place. mg2 17:29 Tobar cath inserted, using sterile technique, 16 Fr., by me, balloon inflated, urine mg2 specimen collected. returned cloudy urine. Patient tolerated well. 17:35 Repeat lab(s) drawn. by me, sent to lab. jp3 Administered Medications: 12:55 Drug: NS 0.9% 1000 ml Route: IV; Rate: 1 bolus; Site: right antecubital; mg2 17:32 Follow up: Response: No adverse reaction; IV Status: Completed infusion; IV Intake: mg2 1000ml 14:28 Drug: NS 0.9% 1000 ml Route: IV; Rate: 125 ml/hr; Site: right antecubital; mg2 17:32 Follow up: Response: No adverse reaction; IV Status: Infusion continued upon admission mg2 16:12 Drug: Rocephin 1 grams Route: IV; Rate: per protocol; Site: right antecubital; mg2 17:31 Follow up: Response: No adverse reaction; IV Status: Completed infusion mg2 16:12 Drug: levofloxacin 500 mg Volume: 100 ml; Route: IVPB; Infused Over: 60 mins; Site: mg2 right antecubital; 17:31 Follow up: Response: No adverse reaction; IV Status: Completed infusion mg2 Intake: 17:32 IV: 1000ml; Total: 1000ml. mg2 Output: 17:29 Urine: 800ml (Tobar); Total: 800ml. mg2 Outcome: 15:09 Decision to Hospitalize by Provider. [facility] 17:49 Admitted to Med/surg accompanied by filippo, via wheelchair, room 209, with chart, Report mg2 called to ALIYA Rosas 17:49 Condition: stable 17:49 Instructed on the need for admit. 18:05 Patient left the ED. mg2 Signatures: Dispatcher [employer] EDMigue Carranza MD MD cha Rivera, [facility] mr Rashmi Dunne RN RN Jass Blum RN RN mg2 Antonio Heard jp3
--- NOTE | 2019-03-09 15:13 | EDPHYS ---
Physician Documentation [facility] Name: Dayron Boggs Age: 78 yrs Sex: Male : 1940 Arrival Date: 03/09/2019 Time: 11:43 Bed 23 Private MD: Mario Esparza T ED Physician Migue Hartley HPI: 03/09 12:17 This 78 yrs old Male presents to ER via Ambulatory with complaints of selene Fatigue, Blood Pressure Problem. 12:17 weakness, low bp. Onset: The symptoms/episode began/occurred 10 day(s) ago. Severity of selene symptoms: At their worst the symptoms were mild moderate in the emergency department the symptoms are unchanged. The patient has not experienced similar symptoms in the past. Historical: - Allergies: 11:55 No Known Allergies; ph - Home Meds: 13:12 amlodipine 5 mg tab 1 tab once daily [Active]; aspirin 81 mg Oral TbEC twice weekly mg2 [Active]; atorvastatin 80 mg Oral tab 1 tab once daily [Active]; carvedilol Oral [Active]; gabapentin 300 mg Oral cap Q8H [Active]; meloxicam 15 mg Oral tab 1 tab once daily [Active]; Xarelto 20 mg Oral tab 1 tab once daily [Active]; - PMHx: 11:55 CVA; Hyperlipidemia; Hypertension; ph - Immunization history:: Flu vaccine status is unknown. - Social history:: Smoking status: unknown. - Family history:: not pertinent. - Ebola Screening: : No symptoms or risks identified at this time. ROS: 12:17 Constitutional: Negative for fever, chills, and weight loss, Eyes: Negative for injury, selene pain, redness, and discharge, ENT: Negative for injury, pain, and discharge, Neck: Negative for injury, pain, and swelling, Cardiovascular: Negative for chest pain, palpitations, and edema, Respiratory: Negative for shortness of breath, cough, wheezing, and pleuritic chest pain, Abdomen/GI: Negative for abdominal pain, nausea, vomiting, diarrhea, and constipation, Back: Negative for injury and pain, : Negative for injury, bleeding, discharge, and swelling, MS/Extremity: Negative for injury and deformity, Skin: Negative for injury, rash, and discoloration, Psych: Negative for depression, anxiety, suicide ideation, homicidal ideation, and hallucinations, Allergy/Immunology: Negative for hives, rash, and allergies, Endocrine: Negative for neck swelling, polydipsia, polyuria, polyphagia, and marked weight changes, Hematologic/Lymphatic: Negative for swollen nodes, abnormal bleeding, and unusual bruising. 12:17 Neuro: Positive for weakness. Exam: 12:17 Constitutional: This is a well developed, well nourished patient who is awake, alert, selene and in no acute distress. Head/Face: Normocephalic, atraumatic. Eyes: Pupils equal round and reactive to light, extra-ocular motions intact. Lids and lashes normal. Conjunctiva and sclera are non-icteric and not injected. Cornea within normal limits. Periorbital areas with no swelling, redness, or edema. ENT: Nares patent. No nasal discharge, no septal abnormalities noted. Tympanic membranes are normal and external auditory canals are clear. Oropharynx with no redness, swelling, or masses, exudates, or evidence of obstruction, uvula midline. Mucous membranes moist. Neck: Trachea midline, no thyromegaly or masses palpated, and no cervical lymphadenopathy. Supple, full range of motion without nuchal rigidity, or vertebral point tenderness. No Meningismus. Chest/axilla: Normal chest wall appearance and motion. Nontender with no deformity. No lesions are appreciated. Cardiovascular: Regular rate and rhythm with a normal S1 and S2. No gallops, murmurs, or rubs. Normal PMI, no JVD. No pulse deficits. Respiratory: Lungs have equal breath sounds bilaterally, clear to auscultation and percussion. No rales, rhonchi or wheezes noted. No increased work of breathing, no retractions or nasal flaring. Abdomen/GI: Soft, non-tender, with normal bowel sounds. No distension or tympany. No guarding or rebound. No evidence of tenderness throughout. Back: No spinal tenderness. No costovertebral tenderness. Full range of motion. Male : Normal genitalia with no discharge or lesions. Skin: Warm, dry with normal turgor. Normal color with no rashes, no lesions, and no evidence of cellulitis. MS/ Extremity: Pulses equal, no cyanosis. Neurovascular intact. Full, normal range of motion. Neuro: Awake and alert, GCS 15, oriented to person, place, time, and situation. Cranial nerves II-XII grossly intact. Motor strength 5/5 in all extremities. Sensory grossly intact. Cerebellar exam normal. Normal gait. Psych: Awake, alert, with orientation to person, place and time. Behavior, mood, and affect are within normal limits. Vital Signs: 11:53 BP 92 / 45; Pulse 79; Resp 18; Temp 99.3; Pulse Ox 97% on R/A; Weight 83.91 kg; ph 12:05 BP 100 / 62; Pulse 73; Resp 18; Pulse Ox 95% on R/A; Pain 0/10; mg2 13:28 BP 92 / 47; Pulse 72; Resp 18; Temp 98.3(O); Pulse Ox 100% on R/A; mg2 14:06 BP 98 / 46; Pulse 69; Resp 18; Pulse Ox 100% on R/A; mg2 17:24 BP 103 / 79; Pulse 94; Resp 18; Temp 98.3; Pulse Ox 100% on R/A; mg2 MDM: 11:58 Patient medically screened. [facility] 12:20 Data reviewed: vital signs, nurses notes, lab test result(s), EKG, radiologic studies, [facility] CT scan, plain films. 03/09 12:05 Order name: Basic Metabolic Panel; Complete Time: 13: [facility] [place] 03/[place] 12:05 Order name: CBC with Diff; Complete Time: 13: [facility] [place] 03/09 12:05 Order name: LFT's; Complete Time: 13: [facility] [place] 03/09 12:05 Order name: Magnesium; Complete Time: 13: mg2 03/09 12:05 Order name: NT PRO-BNP; Complete Time: 13: [facility] [place] 03/09 12:05 Order name: PT-INR; Complete Time: 13: [facility] [place] 03/09 12:05 Order name: Troponin (emerg Dept Use Only); Complete Time: 13: [facility] [place] 03/09 12:16 Order name: Lipase; Complete Time: 13: [facility] 03/09 12:16 Order name: Urine Culture [facility] 03/09 12:16 Order name: Blood Culture Adult (2) [facility] 03/09 12:16 Order name: Procalcitonin; Complete Time: 13:09 selene 03/09 12:16 Order name: Lactate; Complete Time: 13: [facility] 03/09 15:55 Order name: Urinalysis [facility]CO 03/09 16:55 Order name: Urine Dipstick--Ancillary (enter results) sp 03/09 12:05 Order name: XRAY Chest (1 view); Complete Time: 14:58 mg2 03/09 12:05 Order name: EKG; Complete Time: 12:09 mg2 03/09 12:05 Order name: Cardiac monitoring; Complete Time: 12:11 mg2 03/09 12:05 Order name: EKG - Nurse/Tech; Complete Time: 12:11 mg2 03/09 12:05 Order name: IV Saline Lock; Complete Time: 12:34 mg2 03/09 12:05 Order name: Labs collected and sent; Complete Time: 12:34 mg2 03/09 12:05 Order name: O2 Per Protocol; Complete Time: 12:11 mg2 03/09 12:05 Order name: O2 Sat Monitoring; Complete Time: 12:11 mg2 03/09 12:16 Order name: Urine Dipstick-Ancillary (obtain specimen); Complete Time: 17:32 [facility] 03/09 12:16 Order name: CT Stone Protocol; Complete Time: 14:58 [facility] 03/09 15:06 Order name: Bladder Scanner: pvr; Complete Time: 16:12 [facility] 03/09 17:09 Order name: Urine Dipstick-Ancillary [facility]CO 03/09 16:22 Order name: Tobar; Complete Time: 17:31 selene Administered Medications: 12:55 Drug: NS 0.9% 1000 ml Route: IV; Rate: 1 bolus; Site: right antecubital; mg2 17:32 Follow up: Response: No adverse reaction; IV Status: Completed infusion; IV Intake: mg2 1000ml 14:28 Drug: NS 0.9% 1000 ml Route: IV; Rate: 125 ml/hr; Site: right antecubital; mg2 17:32 Follow up: Response: No adverse reaction; IV Status: Infusion continued upon admission mg2 16:12 Drug: Rocephin 1 grams Route: IV; Rate: per protocol; Site: right antecubital; mg2 17:31 Follow up: Response: No adverse reaction; IV Status: Completed infusion mg2 16:12 Drug: levofloxacin 500 mg Volume: 100 ml; Route: IVPB; Infused Over: 60 mins; Site: mg2 right antecubital; 17:31 Follow up: Response: No adverse reaction; IV Status: Completed infusion mg2 Disposition: 08/24/19 15:09 Hospitalization ordered by Gaby Wood for Inpatient Admission. Preliminary diagnosis are Anemia, unspecified, Unspecified kidney failure, Fever, unspecified, Hypotension, Retention of urine, Cystitis. - Bed requested for Telemetry/MedSurg (Inpatient). - Status is Inpatient Admission. mg2 - Condition is Fair. - Problem is new. - Symptoms have improved. UTI on Admission? Yes Signatures: Dispatcher [employer] EDMS Migue Hartley MD MD cha Pinkerton, Shawna sp Hall, Patricia, RN RN Jass Blum RN RN mg2 Corrections: (The following items were deleted from the chart) 16:19 15:09 Hospitalization Ordered by Gaby Wood MD for Inpatient Admission. Preliminary selene diagnosis is Anemia, unspecified; Unspecified kidney failure; Fever, unspecified; Hypotension. Bed requested for Telemetry/MedSurg (Inpatient). Status is Inpatient Admission. Condition is Fair. Problem is new. Symptoms have improved. UTI on Admission? Yes. [facility] 16:27 16:19 03/09/2019 15:09 Hospitalization Ordered by Gaby Wood MD for Inpatient sp Admission. Preliminary diagnosis is Anemia, unspecified; Unspecified kidney failure; Fever, unspecified; Hypotension; Retention of urine. Bed requested for Telemetry/MedSurg (Inpatient). Status is Inpatient Admission. Condition is Fair. Problem is new. Symptoms have improved. UTI on Admission? Yes. selene 16:52 16:27 03/09/2019 15:09 Hospitalization Ordered by Gaby Wood MD for Inpatient selene Admission. Preliminary diagnosis is Anemia, unspecified; Unspecified kidney failure; Fever, unspecified; Hypotension; Retention of urine. Bed requested for Telemetry/MedSurg (Inpatient). Status is Inpatient Admission. Condition is Fair. Problem is new. Symptoms have improved. UTI on Admission? Yes. sp 18:05 16:52 03/09/2019 15:09 Hospitalization Ordered by Gaby Wood MD for Inpatient mg2 Admission. Preliminary diagnosis is Anemia, unspecified; Unspecified kidney failure; Fever, unspecified; Hypotension; Retention of urine; Cystitis. Bed requested for Telemetry/MedSurg (Inpatient). Status is Inpatient Admission. Condition is Fair. Problem is new. Symptoms have improved. UTI on Admission? Yes. [facility]
--- NOTE | 2019-03-09 15:38 | EKG ---
Test Date: 2019-03-09 Test Time: 12:04:57 [employer] Worker: EDITH MEASUREMENT RESULTS: Intervals: Rate: 74 DC: 140 QRSD: 92 QT: 378 QTc: 419 [place]: P: 66 DC: 140 QRS: 31 T: 75 INTERPRETIVE STATEMENTS: Normal sinus rhythm Normal ECG Compared to ECG 02/21/2019 17:03:15 Sinus arrhythmia no longer present Electronically Signed On 03-09-19 15:37:40 CDT by Cayetano Soriano
[2019-03-09] MEDS ORDERED: CEFTRIAXONE/SWI 1gm 1 GM/10 ML SYR ONE (16:08)
[2019-03-09] MEDS ORDERED: Levofloxacin500mg IV 500 MG/100 ML BAG IV ONE (16:08)
[2019-03-09 17:09] LABS: Urine Blood 3+ (NEG); Urine Glucose NEGATIVE (NEG); Urine Protein 2+ (NEG); Urine Specific Gravity >1.030 (1.005-1.030); Urine pH 5.5 (5.0-7.0)
[2019-03-09] MEDS ORDERED: ONDANSETRON 4 MG/2 ML VIAL IV PRN (18:14)
--- NOTE | 2019-03-09 18:52 | P.HP ---
Certification for Inpatient Patient admitted to: Observation With expected LOS: <2 Midnights Practitioner: I am a practitioner with admitting privileges, knowledge of patient current condition, hospital course, and medical plan of care. Services: Services provided to patient in accordance with Admission requirements found in Title 42 Section 412.3 of the Code of Federal Regulations Patient History Date of Service: 03/09/19 Primary Care Provider: Dr. Esparza Reason for admission: Chills, lightheadedness, low blood pressure History of Present Illness: This is a 78-year-old gentleman with a history of CVA in 2018, hyperlipidemia and hypertension admitted for low blood pressure and lightheadedness. Per patient, the this morning he started feeling generally bad, with chills, lightheadedness and dizziness. He checked his blood pressure at home, it was 80s over 50s. He denied any chest pain, shortness of breath, headache, vision changes, GI or complaints. He also denies any falls. He also denies noting any bleeding in his stool or urine. Since he was feeling dizziness and he saw as blood pressure, he called his who called the EMS. He was then brought to the emergency room. In the ER, his blood pressure was 92/45, heart rate is 79, respirations of 18, afebrile at 99.3 and satting 97% on room air. His labs were remarkable for a hemoglobin of 9.4 from 05/18 weeks ago. His creatinine was elevated at 2.12, lactic acid was elevated at 2.1. His urine was positive for nitrite, blood and leuks esterase. In the ER, he received 1 L of IV fluid bolus along with 1 L of fluids at 125 cc/hour. At the time of my exam, he was alert oriented x3, in no acute distress. His blood pressure was still low but improved. His symptoms had improved greatly from initial. Allergies No Known Allergies Allergy (Verified 02/21/19 20:21) Home medications list reviewed: Yes Home Medications: Amlodipine Besylate [Norvasc] 1 tab PO DAILY 02/21/19 Aspirin 81 mg PO DAILY 02/21/19 Atorvastatin Calcium [Lipitor] 1 tab PO BEDTIME 02/21/19 Candesartan Cilexetil [Atacand] 1 tab PO DAILY 02/21/19 Carvedilol [Coreg*] 1 tab PO BID 02/21/19 Gabapentin 1 cap PO DAILY 02/21/19 Lansoprazole 1 tab PO DAILY 02/21/19 Montelukast [Singulair*] 1 tab PO DAILY 02/21/19 Rivaroxaban [Xarelto] 1 tab PO DAILY 02/21/19 hydroCHLOROthiazide [Hydrochlorothiazide*] 25 mg PO DAILY 02/21/19 Cephalexin [Keflex] 500 mg PO DAILY 14 Days #14 cap 02/22/19 Oxybutynin Chloride [Oxybutynin Chloride ER] 10 mg PO DAILY 14 Days #14 tab.er.[email or web address] 02/22/19 Tramadol HCl [Ultram] 50 mg PO Q6HP PRN 5 Days #20 tablet 02/22/19 - Past Medical/Surgical History Diabetic: No -: cva 2017 -: htypertension -: high colesterol -: right heel - Family History Mother -: Heart disease - Social History Alcohol use: No CD- Drugs: No Caffeine use: No Review of Systems 10-point ROS is otherwise unremarkable Physical Examination - Vital Signs Temperature: 100.5 F Blood Pressure: 116/60 Pulse: 92 Respirations: 18 Pulse Ox (%): 96 - Physical Exam General: Alert, In no apparent distress, Oriented x3 HEENT: Atraumatic, PERRLA, Mucous membr. moist/pink, EOMI, Sclerae nonicteric Neck: Supple, 2+ carotid pulse no bruit, No LAD, Without JVD or thyroid abnormality Respiratory: Clear to auscultation bilaterally, Normal air movement Cardiovascular: Regular rate/rhythm, Normal S1 S2 Gastrointestinal: Normal bowel sounds, No tenderness Musculoskeletal: No tenderness Integumentary: No rashes Neurological: Normal gait, Normal speech, Normal strength at 5/5 x4 extr, Normal tone, Normal affect Lymphatics: No axilla or inguinal lymphadenopathy - Studies Laboratory Data (last 24 hrs) 03/09/19 12:30: Lipase 662 H 03/09/19 12:30: PT 15.1 H, INR 1.29 03/09/19 12:30: WBC 10.2, Hgb 9.4 L, Hct 28.1 L, Plt Count 162 03/09/19 12:30: Sodium 138, Potassium 3.6, BUN 30 H, Creatinine 2.12 H, Glucose 164 H, Magnesium 2.4, Total Bilirubin 0.5, AST 17, ALT 14, Alkaline Phosphatase 77 Assessment and Plan - Problems (Diagnosis) (1) Hypotension Current Visit: Yes Status: Acute Plan: Could be secondary to pre renal, urinary tract infection, along with blood pressure medications that patient takes. -will hold blood pressure medications at this time -continue IV fluids, maintenance at 100 cc/hour -continue to monitor vital Sign Qualifiers: Hypotension type: unspecified hypotension type Qualified Code(s): I95.9 - Hypotension, unspecified (2) Urinary tract infection Current Visit: Yes Status: Acute Plan: Patient with a a urinary tract infection after a recent history of multiple right ureteral stone status post lithotripsy and basket retrieval. -will start IV Rocephin at this time, cultures pending. We will adjust antibiotics as needed Qualifiers: Urinary tract infection type: acute cystitis Hematuria presence: with hematuria Qualified Code(s): N30.01 - Acute cystitis with hematuria (3) Acute kidney injury Current Visit: Yes Status: Acute Plan: Likely secondary to dehydration along with urinary tract infection. -continue IV fluids, continue monitoring labs. -If no improvement, will consult nephrology. (4) Right ureteral stone Current Visit: No Status: Acute Plan: Recent history of Right ureteral stones, multiple, status post lithotripsy and basket retrieval. -will continue to monitor. If needed, will consult Dr. Sol as he did the procedure recently. (5) Hypertension Current Visit: No Status: Chronic Plan: Continue to hold blood pressure medications at this time due to hypotension Qualifiers: Hypertension type: essential hypertension Qualified Code(s): I10 - Essential (primary) hypertension (6) Hyperlipidemia Current Visit: No Status: Chronic Qualifiers: Hyperlipidemia type: unspecified Qualified Code(s): E78.5 - Hyperlipidemia , unspecified (7) Anemia Current Visit: Yes Status: Acute Plan: Likely secondary to blood loss status post cystoscopy, along with urinary tract infection. -monitor H&H, transfuse to keep above 7. -hemoglobin 9.4 at this time; no active bleeding noted at this time Qualifiers: Anemia type: unspecified type Qualified Code(s): D64.9 - Anemia, unspecified - Plan DVT prophylaxis: Hold chemical anticoagulation at this time due to anemia; SCDs GI prophylaxis: Protonix Diet: Heart healthy Disposition: Admit to floor with tele monitoring, Pending symptomatic improvement Discharge Plan: Home Plan to discharge in: 48 Hours - Advance Directives Does patient have a Living Will: No Does patient have a Durable POA for Healthcare: No Time Spent Managing Pts Care (In Minutes): 55
[2019-03-09] MEDS: NA CHLORIDE 0.9% 1,000 ML IV SCH (20:44)
[2019-03-09] MEDS ORDERED: CEFTRIAXONE 1 GM/NS 50 ML 1 GM/50 ML BAG IV SCH (21:00)
[2019-03-09] MEDS: CEFTRIAXONE/SWI 1gm 1 GM/10 ML SYR IV SCH (21:49)
[2019-03-09] MEDS: ACETAMINOPHEN 500 MG TAB PO PRN (21:49)
[2019-03-10] MEDS: ACETAMINOPHEN 500 MG TAB PO PRN ×2 (05:04→18:51)
[2019-03-10] MEDS: NA CHLORIDE 0.9% 1,000 ML IV SCH ×2 (05:05→14:17)
[2019-03-10 06:13] LABS: Absolute Lymphocytes (CBC) 0.7 K/uL (0.7-4.9); Basophils % 0.4 % (0-1.3); MPV 8.9 fL (7.6-11.3); RBC Red Blood Cell Count 2.68 M/uL (4.33-5.43)
[2019-03-10 06:24] LABS: Albumin 2.4 g/dL (3.4-5.0); Bilirubin Total 0.3 mg/dL (0.2-1.0); Potassium 3.2 mmol/L (3.5-5.1); Protein, Total 5.8 g/dL (6.4-8.2)
[2019-03-10] MEDS ORDERED: POTASSIUM CL SA 10 MEQ TAB PO ONE ×2 (08:00→19:00)
[2019-03-10] MEDS: CEFTRIAXONE/SWI 1gm 1 GM/10 ML SYR IV SCH ×2 (08:33→20:29)
[2019-03-10] MEDS ORDERED: POTASS/SODIUM PHOSPHATE 1 PKT POWD.PACK PO ONE (09:00)
--- NOTE | 2019-03-10 09:56 | P.PN ---
Subjective Date of Service: 03/10/19 Primary Care Provider: Dr. Esparza Chief Complaint: Chills, lightheadedness, low blood pressure Subjective: Improving Patient seen and examined at bedside. Chart reviewed, case discussed with nursing staff. Run of SVT last night. Has loop recorder implanted. 101.5 Tm last night. Improved with tylenol. Clinically, reports improvement. no complaints this am. Review of Systems 10-point ROS is otherwise unremarkable Physical Examination - Vital Signs Temperature: 97.5 F Blood Pressure: 135/63 Pulse: 75 Respirations: 18 Pulse Ox (%): 97 - Physical Exam General: Alert, In no apparent distress HEENT: Atraumatic, PERRLA, EOMI Neck: Supple, JVD not distended Respiratory: Clear to auscultation bilaterally, Normal air movement Cardiovascular: Regular rate/rhythm, Normal S1 S2 Gastrointestinal: Normal bowel sounds, No tenderness, Distended Musculoskeletal: No tenderness Integumentary: No rashes Neurological: Normal speech, Normal tone, Normal affect Lymphatics: No axilla or inguinal lymphadenopathy - Studies Laboratory Data (last 24 hrs) 03/09/19 12:30: Lipase 662 H 03/09/19 12:30: PT 15.1 H, INR 1.29 03/09/19 12:30: WBC 10.2, Hgb 9.4 L, Hct 28.1 L, Plt Count 162 03/09/19 12:30: Sodium 138, Potassium 3.6, BUN 30 H, Creatinine 2.12 H, Glucose 164 H, Magnesium 2.4, Total Bilirubin 0.5, AST 17, ALT 14, Alkaline Phosphatase 77 Assessment And Plan - Current Problems (Diagnosis) (1) Hypotension Current Visit: Yes Status: Resolved Plan: Resolved. Could be secondary to pre renal, urinary tract infection, along with blood pressure medications that patient takes. -will restart blood pressure medications at this time -continue IV fluids, maintenance at 100 cc/hour -continue to monitor vital Sign Qualifiers: Hypotension type: unspecified hypotension type Qualified Code(s): I95.9 - Hypotension, unspecified (2) Urinary tract infection Current Visit: Yes Status: Acute Plan: Patient with a a urinary tract infection after a recent history of multiple right ureteral stone status post lithotripsy and basket retrieval. -will continue IV Rocephin at this time, cultures with gram negative rods, final cultures pending. We will adjust antibiotics as needed Qualifiers: Urinary tract infection type: acute cystitis Hematuria presence: with hematuria Qualified Code(s): N30.01 - Acute cystitis with hematuria (3) Acute kidney injury Current Visit: Yes Status: Acute Plan: Likely secondary to dehydration along with urinary tract infection. Improving -continue IV fluids, continue monitoring labs. -If no improvement, will consult nephrology. (4) Right ureteral stone Current Visit: No Status: Acute Plan: Recent history of Right ureteral stones, multiple, status post lithotripsy and basket retrieval. -will continue to monitor. If needed, will consult Dr. Sol as he did the procedure recently. (5) Hypertension Current Visit: No Status: Chronic Plan: Restart blood pressure medications and continue to monitor. Qualifiers: Hypertension type: essential hypertension Qualified Code(s): I10 - Essential (primary) hypertension (6) Hyperlipidemia Current Visit: No Status: Chronic Qualifiers: Hyperlipidemia type: unspecified Qualified Code(s): E78.5 - Hyperlipidemia , unspecified (7) Anemia Current Visit: Yes Status: Acute Plan: Likely secondary to blood loss status post cystoscopy, along with urinary tract infection. -monitor H&H, transfuse to keep above 7. -hemoglobin 9.0 at this time; no active bleeding noted at this time Qualifiers: Anemia type: unspecified type Qualified Code(s): D64.9 - Anemia, unspecified - Plan DVT prophylaxis: Hold chemical anticoagulation at this time due to anemia; SCDs GI prophylaxis: Protonix Diet: Heart healthy Disposition: Pending symptomatic improvement. Anticipate discharge in the next 24 hrs once cultures finalize and if H&H stable. Discharge Plan: Home Plan to discharge in: 24 Hours
[2019-03-10] MEDS: POTASS/SODIUM PHOSPHATE 1 PKT POWD.PACK PO SCH ×2 (10:21→11:50)
[2019-03-11] MEDS: NA CHLORIDE 0.9% 1,000 ML IV SCH (02:23)
[2019-03-11 06:29] LABS: Absolute Lymphocytes (CBC) 0.9 K/uL (0.7-4.9); Basophils % 0.4 % (0-1.3); Hematocrit 27.2 % (39.6-49.0); MPV 9.8 fL (7.6-11.3)
[2019-03-11 06:42] LABS: Albumin 2.3 g/dL (3.4-5.0); Bilirubin Total 0.3 mg/dL (0.2-1.0); Potassium 3.5 mmol/L (3.5-5.1); Protein, Total 6.1 g/dL (6.4-8.2)
[2019-03-11] MEDS: CEFTRIAXONE/SWI 1gm 1 GM/10 ML SYR IV SCH (09:22)
--- NOTE | 2019-03-11 17:25 | P.DS ---
Admission Date: 03/09/19 Discharge Date: 03/11/19 Primary Care Provider: Dr. Esparza Disposition: ROUTINE DISCHARGE Discharge Condition: GOOD Reason for Admission: Chills, lightheadedness, low blood pressure Consultations: Urology Procedures: Non - Problems (1) Urinary tract infection Status: Acute Qualifiers: Urinary tract infection type: acute cystitis Hematuria presence: with hematuria Qualified Code(s): N30.01 - Acute cystitis with hematuria (2) Hyperlipidemia Status: Chronic Qualifiers: Hyperlipidemia type: unspecified Qualified Code(s): E78.5 - Hyperlipidemia , unspecified (3) Hypertension Status: Chronic Qualifiers: Hypertension type: essential hypertension Qualified Code(s): I10 - Essential (primary) hypertension Brief History of Present Illness: Patient was initially admitted to the hospital for dehydration and was found to have UTI Hospital Course: Overall during the hospital stay patient remained stable Patient was initially admitted to the hospital for dehydration and was found to have urinary tract infection while here in the hospital. Patient couple weeks ago had a cystoscopy with stent placement done for right-sided urethral stone. Patient stone passed and patient has stent removal about a week ago with urology. After which patient started having burning during urination and thus was admitted to the hospital for further workup. While here in the hospital patient was found to have urinary tract infection urine cultures and blood cultures were connected and patient was started on IV antibiotics. Patient has urine culture was positive for Pseudomonas which was pansensitive and patient was thus discharged home on p.o. ciprofloxacin once he was able to tolerate his diet and ambulate here in the hospital. Patient demonstrate understanding regarding the plan of care and agreed with discharge and was discharged home under stable condition. Patient was asked to follow up with urology in about 1- 2 days post discharge. Vital Signs/Physical Exam: Temp Pulse Resp BP Pulse Ox 97.8 F 84 18 153/70 H 97 03/11/19 16:00 03/11/19 16:00 03/11/19 16:00 03/11/19 16:00 03/11/19 16:00 General: Alert, In no apparent distress HEENT: Atraumatic, PERRLA, EOMI Neck: Supple, JVD not distended Respiratory: Clear to auscultation bilaterally, Normal air movement Cardiovascular: Regular rate/rhythm, Normal S1 S2 Gastrointestinal: Normal bowel sounds, No tenderness Musculoskeletal: No tenderness Integumentary: No rashes Neurological: Normal speech, Normal tone, Normal affect Lymphatics: No axilla or inguinal lymphadenopathy Laboratory Data at Discharge: WBC 6.1 K/uL (4.3-10.9) D 03/11/19 05:37 Hgb 9.0 g/dL (13.6-17.9) L 03/11/19 05:37 Hct 27.2 % (39.6-49.0) L 03/11/19 05:37 Plt Count 139 K/uL (152-406) L 03/11/19 05:37 PT 15.1 SECONDS (9.5-12.5) H 03/09/19 12:30 INR 1.29 03/09/19 12:30 Sodium 146 mmol/L (136-145) H 03/11/19 05:37 Potassium 3.5 mmol/L (3.5-5.1) 03/11/19 05:37 BUN 12 mg/dL (7-18) 03/11/19 05:37 Creatinine 0.97 mg/dL (0.55-1.3) 03/11/19 05:37 Glucose 105 mg/dL (74-106) 03/11/19 05:37 Phosphorus 1.9 mg/dL (2.5-4.9) L 03/10/19 05:21 Magnesium 2.4 mg/dL (1.8-2.4) 03/09/19 12:30 Total Bilirubin 0.3 mg/dL (0.2-1.0) 03/11/19 05:37 AST 26 U/L (15-37) 03/11/19 05:37 ALT 28 U/L (12-78) 03/11/19 05:37 Alkaline Phosphatase 78 U/L (45-117) 03/11/19 05:37 Lipase 662 U/L (73-393) H 03/09/19 12:30 Home Medications: Acetaminophen [Tylenol Arthritis] 650 mg PO Q4HP PRN 03/10/19 Amlodipine [Norvasc*] 5 mg PO DAILY 03/10/19 Ascorbic Acid [Vitamin C] 1,000 mg PO DAILY 03/10/19 Aspirin [Aspirin EC 81 MG] 81 mg PO DAILY 03/10/19 Atorvastatin Calcium [Lipitor] 80 mg PO BEDTIME 03/10/19 Candesartan Cilexetil 32 mg PO BID 03/10/19 Carvedilol [Coreg*] 25 mg PO DAILY 03/10/19 Fexofenadine HCl [Allergy Relief] 180 mg PO DAILY 03/10/19 Gabapentin 1 cap PO Q8H 03/10/19 Lansoprazole 30 mg PO DAILY 03/10/19 Magnesium Citrate 125 mg PO DAILY 03/10/19 Montelukast Sodium 10 mg PO DAILY 03/10/[address]-3/Dha/Epa/Fish Oil [Fish Oil 1,200 mg Softgel] 1 cap PO DAILY 03/10/19 Rivaroxaban [Xarelto] 20 mg PO DAILY 03/10/19 Zinc 1 tab PO DAILY 03/10/19 hydroCHLOROthiazide [Hydrochlorothiazide] 25 mg PO DAILY 03/10/19 Bacillus Coagulans [Probiotic] 1 each PO BID #30 tab.chew 03/11/19 Ciprofloxacin HCl [Cipro 500 MG Tablet] 500 mg PO BID #28 tab 03/11/19 New Medications: Bacillus Coagulans [Probiotic] 1 each PO BID #30 tab.chew Ciprofloxacin HCl [Cipro 500 MG Tablet] 500 mg PO BID #28 tab Diet: Regular Activity: Ad israel Followup: Mario Esparza MD [Primary Care Provider] - 1-2 Weeks (Call to schedule an appointment ) Radha Sol MD [ACTIVE - CAN ADMIT] - 1-2 Weeks (urologist- Call to schedule an appointment )
== END 2019-03-11 17:15 | disposition home or self-care (01) ==
LOC: ER 11:40 → ERHOLD 15:49 → 2ND 17:49
PROVIDERS: ADMIT Family Medicine; ATTEND Family Medicine
DX: N30.01 Acute cystitis with hematuria (principal); B96.5 Pseudomonas (aeruginosa) (mallei) (pseudomallei) as the cause of diseases classified elsewhere; E86.0 Dehydration; N17.9 Acute kidney failure, unspecified; I10 Essential (primary) hypertension; E78.5 Hyperlipidemia, unspecified; D64.9 Anemia, unspecified
CPT/HCPCS: 96365; 96361; 96368; 93005; 87040 ×2; 87088; 85025 ×3; 87086; 80048; 36415 ×2; 83735; 84100; 84132; 85610; 80076; 83605 ×2; 87077; 87186; 81003; 84484; 83690; 80053 ×2; 84145; 83880; 76377; 74176; 71045; 94760 ×5; 51702; 99285; J0696 ×5; J7030 ×6; G0378 ×2

== ENCOUNTER 2020-07-29 10:39 | Emergency (ER) | payer OTHER ==
--- OUTSIDE RECORDS SUMMARY | 2020-07-29 10:41 | XMS REPORT | Clinical Summary ---
:1940 Author Organization [facility] Address [address] [place] [address] Care Team Providers Name Role Phone Unavailable Primary Care Provider Unavailable Allergies No Known Allergies Medications Medication Sig Dispensed Refills Start Date End Date Status gabapentin (NEURONTIN) Take 300 mg by 0 Active 300 MG mouth 2 (two) capsuleIndications: times daily. neuropathic pain lansoprazole (PREVACID) Take 30 mg by 0 Active 30 MG capsule mouth daily. zinc gluconate 50 mg Take 50 mg by 0 Active tablet mouth daily. acetaminophen (TYLENOL) Take 650 mg by 0 Active 650 MG CR tablet mouth every 8 (eight) hours as needed for Pain. Active Problems Problem Noted Date Essential hypertension 08/27/2017 Ischemic stroke 08/26/2017 Tissue plasminogen activator (t-PA) administered at ot her facility within 08/26/2017 24 hours prior to current admission Immunizations Name Administration Dates Next Due Pneumococcal Polysaccharide (Pneumovax) 08/28/2017 Social History Tobacco Use Types Packs/Day Years Used Date Never Smoker Smokeless Tobacco: Never Used Alcohol Use Drinks/Week oz/Week Comments No Sex Assigned at Date Recorded Not on file Last Filed Vital Signs Not on file Plan of Treatment Health Maintenance Due Date Last Done Comments MEDICARE ANNUAL WELLNESS (YEAR 2 or FIRST YEAR if no 07/18/2018 IPPE) INFLUENZA VACCINE (#1) 2020 PNEUMOCOCCAL 65+ YRS Completed 08/28/2017 Results Not on fileafter 07/29/2019 Insurance Payer Benefit Plan Subscriber ID Effective Phone Address Typ e / Group Dates [employer]ET[employer] - [employer] [id number] 2017-Pres [phone] [address] [employer] MEDICARE MGD MEDICARE HMO ent [phone] [id number] [place] [address] Advance Directives For more information, please contact: [phone] Code Status Date Activated Date Inactivated Comments Full Code 08/26/2017 2:23 PM 08/30/2017 4:32 PM This code status was determined by: Patient
--- OUTSIDE RECORDS SUMMARY | 2020-07-29 10:42 | XMS REPORT | Continuity of Care Document ---
:1940 Author Organization [facility] t Address [address] [place] [address] Care Team Providers Name Role Phone Vito CARSON Attending Clinician Jessica CARSON Attending Clinician 2, Lab Attending Clinician Unavailable Tonio Mcgee MD, Annetta Attending Clinician [phone] DONALD TELLEZ Attending Clinician Unavail able DONALD TELLEZ Admitting Clinician Unavail able Problems Condition Condition Condition Status Onset Resolution Last Treating Co mments Source Name Details Category Date Date Treatment Clinician Date Essential Essential Disease Active [facility] hypertensi hypertensi 2-11 Adriana kes - on on 00:00: Medical 00 [place] 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 00 [place] 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 Social History Social Habit Start Date Stop Date Quantity Comments Source Sex Assigned At [facility] Tobacco use and 2017-08-26 2017-08-26 Never used [facility] kes - exposure 00:00:00 00:00:00 [facility] Alcohol intake 2017-08-26 2017-08-[address] [facility] - 00:00:00 00:00:00 non-drinker of Medical Ce nter alcohol (finding) Smoking Status Start Date Stop Date Source Never sm[facility] Medications Ordered Filled Start Stop Current Ordering Indication Dosage Frequency Signature Comments Components Source Medication Medication Date Date Medication? Clinician (SIG) Name Name gabapentin Yes neuropathic 300mg Q.5D Take [address] [facility] [address] (NEURONTIN) 2-14 pain mg by [facility] - 300 MG 14:32: mouth 2 Medical capsule 17 (two) Center times daily. lansoprazol Yes 30mg QD Take [address] [facility] e 2-14 by mouth [facility] - (PREVACID) 14:32: daily. Medic al 30 MG 17 Center capsule zinc Yes 50mg QD Take [address] gluconate 2-14 by mouth [facility] - 50 mg 14:32: daily. Medical tablet 17 Center acetaminoph Yes 650mg Take [address] en 2-14 mg by [facility] - (TYLENOL) 14:32: mouth Medical 650 MG CR 17 every 8 Center tablet (eight) hours as needed for Pain. Immunizations Ordered Immunization Filled Immunization Date Status Commen ts Source Name Name Pneumococcal 2017-08-[address] [facility] - Polysaccharide 00:00:00 Medical Ce ntluis angel (Pneumovax) Procedures This patient has no known procedures. Plan of Care Planned Activity Planned Date Details Comments Source Future Scheduled 2020-03-[address] [facility] - Test 00:00:00 (#1) [code = Medical Center INFLUENZA VACCINE (#1)] Future Scheduled 2018-07-[address] [facility] - Test 00:00:00 WELLNESS (YEAR 2 or Medical Center FIRST YEAR if no IPPE) [code = MEDICARE ANNUAL WELLNESS (YEAR 2 or FIRST YEAR if no IPPE)] Encounters Start End Encounter Admission Attending Care Care Encounter Source Date/Time Date/Time Type Type Clinicians Facility Department ID 2020-06-08 2020-06-08 Telephone Vito [facility] [id number] 00:00:00 00:00:00 Martha Gaitan [id number] Skylar [id number] Guero [id number] nal 9 Building 2020-05-20 2020-05-20 [facility] Tressa Lopez [id number] 09:30:00 23:59:00 Encounter Campos Diaz [id number] [facility] [id number] 2020-05-13 2020-05-13 Core Stacker 2, Adc Lab [facility] [id number] 09:07:05 09:37:05 Visit Arnie [id number] Beulah [id number] Guero [id number] [facility] 2020-05-12 2020-05-12 Office Vito, [facility] [id number] 13:35:21 14:08:55 Visit Martha Gaitan [id number] Skylar [id number] Guero [id number] nal 059 [facility] 2019 2019 Office Elizalde [facility] [id number] 12:38:12 13:55:51 Visit Everardo, AMBULATOR [id number] Karla Y [id number] Annetta [id number] [id number] Results Test Description Test Time Test Comments Results Result Comments Source BASIC METABOLIC PANEL 2017-08-30 05:44:00 Test Item Value Reference Range Interpretation Comme nts SODIUM (BEAKER) (test code 140 meq/L 136-145 = 381) POTASSIUM (BEAKER) (test 3.4 meq/L 3.5-5.1 L code = 379) CHLORIDE (BEAKER) (test 110 meq/L 98-107 H code = 382) CO2 (BEAKER) (test code = 22 meq/L 22-29 355) BLOOD UREA NITROGEN 19 mg/dL 7-21 (BEAKER) (test code = 354) CREATININE (BEAKER) (test 0.97 mg/dL 0.57-1.25 code = 358) GLUCOSE RANDOM (BEAKER) 102 mg/dL 70-105 (test code = 652) CALCIUM (BEAKER) (test code 8.9 mg/dL 8.4-10.2 = 697) EGFR (BEAKER) (test code = 75 mL/min/1.73 sq m ESTIMATED GFR IS NOT 1092) ACCURATE CRE ATININE CLEARANCE IN [place] EDICTING GLOMERULAR FILT RATION RATE. ESTIMATED GFR IS NOT APPLICABLE FOR DIALYSIS PATIENTS. CBC W/PLT COUNT & AUTO [id number] 05:03:00 Test Item Value Reference Range Interpretation Comments WHITE BLOOD CELL COUNT (BEAKER) 7.7 K/ L 3.5-10.5 (test code = 775) RED BLOOD CELL COUNT (BEAKER) 4.11 M/ L 4.63-6.08 L (test code = 761) HEMOGLOBIN (BEAKER) (test code = 13.2 GM/DL 13.7-17.5 L 410) HEMATOCRIT (BEAKER) (test code = 40.1 % 40.1-51.0 411) MEAN CORPUSCULAR VOLUME (BEAKER) 97.6 fL 79.0-92.2 H (test code = 753) MEAN CORPUSCULAR HEMOGLOBIN 32.1 pg 25.7-32.2 (BEAKER) (test code = 751) MEAN CORPUSCULAR HEMOGLOBIN CONC 32.9 GM/DL 32.3-36.5 (BEAKER) (test code = 752) RED CELL DISTRIBUTION WIDTH 12.2 % 11.6-14.4 (BEAKER) (test code = 412) PLATELET COUNT (BEAKER) (test 185 K/CU MM 150-450 code = 756) MEAN PLATELET VOLUME (BEAKER) 10.3 fL 9.4-12.4 (test code = 754) NUCLEATED RED BLOOD CELLS 0 /100 WBC 0-0 (BEAKER) (test code = 413) NEUTROPHILS RELATIVE PERCENT 61 % (BEAKER) (test code = 429) LYMPHOCYTES RELATIVE PERCENT 26 % (BEAKER) (test code = 430) MONOCYTES RELATIVE PERCENT 10 % (BEAKER) (test code = 431) EOSINOPHILS RELATIVE PERCENT 2 % (BEAKER) (test code = 432) BASOPHILS RELATIVE PERCENT 1 % (BEAKER) (test code = 437) NEUTROPHILS ABSOLUTE COUNT 4.70 K/ L 1.78-5.38 (BEAKER) (test code = 670) LYMPHOCYTES ABSOLUTE COUNT 2.01 K/ L 1.32-3.57 (BEAKER) (test code = 414) MONOCYTES ABSOLUTE COUNT (BEAKER) 0.76 K/ L 0.30-0.82 (test code = 415) EOSINOPHILS ABSOLUTE COUNT 0.15 K/ L 0.04-0.54 (BEAKER) (test code = 416) BASOPHILS ABSOLUTE COUNT (BEAKER) 0.04 K/ L 0.01-0.08 (test code = 417) IMMATURE GRANULOCYTES-RELATIVE 0 % 0-1 PERCENT (BEAKER) (test code = 2801) POCT-GLUCOSE [id number] 16:47:00 Test Item Value Reference Range Interpretation Comments POC-GLUCOSE METER 125 mg/dL 70-110 H TESTED AT [place] [address] ([facility]) (test code = [facility] 1538) [id number] POCT-GLUCOSE [id number] 11:42:00 Test Item Value Reference Range Interpretation Comments POC-GLUCOSE METER 93 mg/dL 70-110 TESTED AT [place] [address] ([facility]) (test code = [facility] [address] 1538) POCT-GLUCOSE [id number] 08:02:00 Test Item Value Reference Range Interpretation Comments POC-GLUCOSE METER 89 mg/dL 70-110 TESTED AT [place] [address] ([facility]) (test code = [facility] [address] 1538) BASIC METABOLIC [id number] 06:12:00 Test Item Value Reference Range Interpretation Comments SODIUM (BEAKER) 140 meq/L 136-145 (test code = 381) POTASSIUM (BEAKER) 3.7 meq/L 3.5-5.1 (test code = 379) CHLORIDE (BEAKER) 110 meq/L 98-107 H (test code = 382) CO2 (BEAKER) (test 20 meq/L 22-29 L code = 355) BLOOD UREA NITROGEN 15 mg/dL 7-21 (BEAKER) (test code = 354) CREATININE (BEAKER) 1.02 mg/dL 0.57-1.25 (test code = 358) GLUCOSE RANDOM 105 mg/dL 70-105 (BEAKER) (test code = 652) CALCIUM (BEAKER) 8.7 mg/dL 8.4-10.2 (test code = 697) EGFR (BEAKER) (test 71 mL/min/1.73 ESTIMA LIZ GFR IS code = 1092) sq m NOT ACCURATE CREATININE CLEARANCE IN PREDICTING GLOMERULAR FILTRATION RATE . ESTIMATED GFR I S NOT APPLICABLE FOR DIALYSIS PATIEN TS. CBC W/PLT COUNT & AUTO [id number] 05:12:00 Test Item Value Reference Range Interpretation Comments WHITE BLOOD CELL COUNT (BEAKER) 8.9 K/ L 3.5-10.5 (test code = 775) RED BLOOD CELL COUNT (BEAKER) 4.20 M/ L 4.63-6.08 L (test code = 761) HEMOGLOBIN (BEAKER) (test code = 13.5 GM/DL 13.7-17.5 L 410) HEMATOCRIT (BEAKER) (test code = 42.0 % 40.1-51.0 411) MEAN CORPUSCULAR VOLUME (BEAKER) 100.0 fL 79.0-92.2 H (test code = 753) MEAN CORPUSCULAR HEMOGLOBIN 32.1 pg 25.7-32.2 (BEAKER) (test code = 751) MEAN CORPUSCULAR HEMOGLOBIN CONC 32.1 GM/DL 32.3-36.5 L (BEAKER) (test code = 752) RED CELL DISTRIBUTION WIDTH 12.6 % 11.6-14.4 (BEAKER) (test code = 412) PLATELET COUNT (BEAKER) (test 177 K/CU MM 150-450 code = 756) MEAN PLATELET VOLUME (BEAKER) 10.2 fL 9.4-12.4 (test code = 754) NUCLEATED RED BLOOD CELLS 0 /100 WBC 0-0 (BEAKER) (test code = 413) NEUTROPHILS RELATIVE PERCENT 64 % (BEAKER) (test code = 429) LYMPHOCYTES RELATIVE PERCENT 24 % (BEAKER) (test code = 430) MONOCYTES RELATIVE PERCENT 10 % (BEAKER) (test code = 431) EOSINOPHILS RELATIVE PERCENT 2 % (BEAKER) (test code = 432) BASOPHILS RELATIVE PERCENT 1 % (BEAKER) (test code = 437) NEUTROPHILS ABSOLUTE COUNT 5.68 K/ L 1.78-5.38 H (BEAKER) (test code = 670) LYMPHOCYTES ABSOLUTE COUNT 2.09 K/ L 1.32-3.57 (BEAKER) (test code = 414) MONOCYTES ABSOLUTE COUNT (BEAKER) 0.88 K/ L 0.30-0.82 H (test code = 415) EOSINOPHILS ABSOLUTE COUNT 0.17 K/ L 0.04-0.54 (BEAKER) (test code = 416) BASOPHILS ABSOLUTE COUNT (BEAKER) 0.04 K/ L 0.01-0.08 (test code = 417) IMMATURE GRANULOCYTES-RELATIVE 0 % 0-1 PERCENT (BEAKER) (test code = 2801) POCT-GLUCOSE [id number] 21:19:00 Test Item Value Reference Range Interpretation Comments POC-GLUCOSE METER 106 mg/dL 70-[address] [facility] 6720 (BEAKER) (test code = [place] 1538) [address] BASIC METABOLIC [id number] 04:05:00 Test Item Value Reference Range Interpretation Comments SODIUM (BEAKER) 143 meq/L 136-145 (test code = 381) POTASSIUM (BEAKER) 3.7 meq/L 3.5-5.1 Specimen slightly (test code = 379) hemolyzed CHLORIDE (BEAKER) 113 meq/L 98-107 H (test code = 382) CO2 (BEAKER) (test 20 meq/L 22-29 L code = 355) BLOOD UREA NITROGEN 10 mg/dL 7-21 (BEAKER) (test code = 354) CREATININE (BEAKER) 0.88 mg/dL 0.57-1.25 Specimen slightly (test code = 358) hemolyzed GLUCOSE RANDOM 110 mg/dL 70-105 H (BEAKER) (test code = 652) CALCIUM (BEAKER) 8.3 mg/dL 8.4-10.2 L (test code = 697) EGFR (BEAKER) (test 84 mL/min/1.73 ESTIMA LIZ GFR IS code = 1092) sq m NOT ACCURATE CREATININE CLEARANCE IN PREDICTING GLOMERULAR FILTRATION RATE . ESTIMATED GFR I S NOT APPLICABLE FOR DIALYSIS PATIEN TS. CBC W/PLT COUNT & AUTO [id number] 03:49:00 Test Item Value Reference Range Interpretation Comments WHITE BLOOD CELL COUNT (BEAKER) 8.8 K/ L 3.5-10.5 (test code = 775) RED BLOOD CELL COUNT (BEAKER) 4.14 M/ L 4.63-6.08 L (test code = 761) HEMOGLOBIN (BEAKER) (test code = 13.3 GM/DL 13.7-17.5 L 410) HEMATOCRIT (BEAKER) (test code = 40.8 % 40.1-51.0 411) MEAN CORPUSCULAR VOLUME (BEAKER) 98.6 fL 79.0-92.2 H (test code = 753) MEAN CORPUSCULAR HEMOGLOBIN 32.1 pg 25.7-32.2 (BEAKER) (test code = 751) MEAN CORPUSCULAR HEMOGLOBIN CONC 32.6 GM/DL 32.3-36.5 (BEAKER) (test code = 752) RED CELL DISTRIBUTION WIDTH 12.6 % 11.6-14.4 (BEAKER) (test code = 412) PLATELET COUNT (BEAKER) (test 171 K/CU MM 150-450 code = 756) MEAN PLATELET VOLUME (BEAKER) 10.0 fL 9.4-12.4 (test code = 754) NUCLEATED RED BLOOD CELLS 0 /100 WBC 0-0 (BEAKER) (test code = 413) NEUTROPHILS RELATIVE PERCENT 74 % (BEAKER) (test code = 429) LYMPHOCYTES RELATIVE PERCENT 15 % (BEAKER) (test code = 430) MONOCYTES RELATIVE PERCENT 10 % (BEAKER) (test code = 431) EOSINOPHILS RELATIVE PERCENT 1 % (BEAKER) (test code = 432) BASOPHILS RELATIVE PERCENT 0 % (BEAKER) (test code = 437) NEUTROPHILS ABSOLUTE COUNT 6.52 K/ L 1.78-5.38 H (BEAKER) (test code = 670) LYMPHOCYTES ABSOLUTE COUNT 1.33 K/ L 1.32-3.57 (BEAKER) (test code = 414) MONOCYTES ABSOLUTE COUNT (BEAKER) 0.85 K/ L 0.30-0.82 H (test code = 415) EOSINOPHILS ABSOLUTE COUNT 0.07 K/ L 0.04-0.54 (BEAKER) (test code = 416) BASOPHILS ABSOLUTE COUNT (BEAKER) 0.02 K/ L 0.01-0.08 (test code = 417) IMMATURE GRANULOCYTES-RELATIVE 0 % 0-1 PERCENT (BEAKER) (test code = 2801) MR, MRA, BRAIN, WITHOUT [id number] 14:29:00Reason for exam:- >StrokeWhat is the patient's sedation requirement?->No SedationIs the patientclaustrophobic?->NoFINAL REPORT MRA brain and neck without contrast 08/27/2017 2:28 PM CLINICAL HISTORY: StrokeIschemic stroke COMPARISON: None available TECHNIQUE: Two- and three-dimensional [id number] MRA images of the intra- and extracranial arterial vasculature was performed, from which maximal intensity projection 3-D reconstructions were created. FINDINGS: MRA neck: There is no vessel occlusion or flow-limiting stenosis. There is no NASCET-quantifiable cervical internal carotid artery stenosis. Flow is antegrade in both vertebral arteries. MRA [place]: There is no vessel occlusion, flow-limiting stenosis, or aneurysm. IMPRESSION: Negative intra- and extracranial MRAs. Signed: Blaise Rangel Verified Date/Time: 08/27/2017 14:29:54 Reading Location: [address] Neuro Reading Room , MRA, NECK, WITHOUT IV [id number] 14:29:00FINAL REPORT MRA brain and neck without contrast 08/27/2017 2:28 PM CLINICAL HISTORY: StrokeIschemic stroke COMPARISON: None available TECHNIQUE: Two- and three- dimensional [id number] MRA images of the intra- and extracranial arterial vasculature was performed, from which maximal intensity projection 3-D reconstructions were created. FINDINGS: MRA neck: There is no vessel occlusion or flow-limiting stenosis. There is no NASCET-quantifiable cervical internal carotid artery stenosis. Flow is antegrade in both vertebral arteries. MRA [place]: There is no vessel occlusion, flow-limiting stenosis, or aneurysm. IMPRESSION: Negative intra- and extracranial MRAs. Signed: Blaise Rangel Verified Date/Time: 08/27/2017 14:29:54 Reading Location: [address] Neuro Reading Room MR, BRAIN, WITHOUT [id number] 14:08:00Reason for exam:->StrokeWhat is the patient's sedation requirement?->No SedationIs the patientclaustrophobic?->NoFINAL REPORT MRI brain without contrast 08/27/2017 2:05 PM CLINICAL INDICATION: StrokePost-tPA TECHNIQUE: Multiplanar, multisequence MR imaging of the brain [...] infarct in the right thalamus. Normal appearing flow- voids are present in the major intracranial vascular structures. The sellar and pineal regions, craniocervical junction, orbits, face, and skull base are without worrisome finding. IMPRESSION:1. Acute nonhemorrhagic right bardales radiata infarct.2. Trace right frontal subarachnoid hemorrhage.3.Mild chronic microvascular ischemia. Signed: Blaise Rangel MDReport Verified Date/Time: 08/27/2017 14:08:46 Reading Location: [address] Neuro Reading Room BASIC METABOLIC [id number] 06:09:00 Test Item Value Reference Range Interpretation Comments SODIUM (BEAKER) 141 meq/L 136-145 (test code = 381) POTASSIUM (BEAKER) 3.6 meq/L 3.5-5.1 Specimen slightly (test code = 379) hemolyzed CHLORIDE (BEAKER) 107 meq/L 98-107 (test code = 382) CO2 (BEAKER) (test 22 meq/L 22-29 code = 355) BLOOD UREA NITROGEN 12 mg/dL 7-21 (BEAKER) (test code = 354) CREATININE (BEAKER) 0.92 mg/dL 0.57-1.25 Specimen slightly (test code = 358) hemolyzed GLUCOSE RANDOM 123 mg/dL 70-105 H (BEAKER) (test code = 652) CALCIUM (BEAKER) 8.8 mg/dL 8.4-10.2 (test code = 697) EGFR (BEAKER) (test 80 mL/min/1.73 ESTIMA LIZ GFR IS code = 1092) sq m NOT ACCURATE CREATININE CLEARANCE IN PREDICTING GLOMERULAR FILTRATION RATE . ESTIMATED GFR I S NOT APPLICABLE FOR DIALYSIS PATIEN TS. FastingLIPID [id number] 06:09:00 Test Item Value Reference Range Interpretation Comments TRIGLYCERIDES (BEAKER) 142 mg/dL Speci men slightly (test code = 540) hemolyzed CHOLESTEROL (BEAKER) 184 mg/dL Specime n slightly (test code = 631) hemolyzed HDL CHOLESTEROL (BEAKER) 45 mg/dL (test code = 976) LDL CHOLESTEROL 111 mg/dL CALCULATED (BEAKER) (test code = 633) Triglyceride Reference Range: Low Risk <150 Borderline 150-199 High Risk 200-499 Very High Risk >=500Cholesterol Reference Range: Low Risk <200 Borderline 200-239 High Risk >240HDL Cholesterol Reference Range: Low Risk >=60 High Risk <40LDL Cholesterol Reference Range: Optimal <100 Near Optimal 100-129 Borderline 130-159 High 160-189 Very High >=190 FastingCBC W/PLT COUNT & AUTO [id number] 05:41:00 Test Item Value Reference Range Interpretation Comments WHITE BLOOD CELL COUNT (BEAKER) 8.8 K/ L 3.5-10.5 (test code = 775) RED BLOOD CELL COUNT (BEAKER) 4.29 M/ L 4.63-6.08 L (test code = 761) HEMOGLOBIN (BEAKER) (test code = 13.6 GM/DL 13.7-17.5 L 410) HEMATOCRIT (BEAKER) (test code = 41.0 % 40.1-51.0 411) MEAN CORPUSCULAR VOLUME (BEAKER) 95.6 fL 79.0-92.2 H (test code = 753) MEAN CORPUSCULAR HEMOGLOBIN 31.7 pg 25.7-32.2 (BEAKER) (test code = 751) MEAN CORPUSCULAR HEMOGLOBIN CONC 33.2 GM/DL 32.3-36.5 (BEAKER) (test code = 752) RED CELL DISTRIBUTION WIDTH 12.3 % 11.6-14.4 (BEAKER) (test code = 412) PLATELET COUNT (BEAKER) (test 180 K/CU MM 150-450 code = 756) MEAN PLATELET VOLUME (BEAKER) 10.3 fL 9.4-12.4 (test code = 754) NUCLEATED RED BLOOD CELLS 0 /100 WBC 0-0 (BEAKER) (test code = 413) NEUTROPHILS RELATIVE PERCENT 75 % (BEAKER) (test code = 429) LYMPHOCYTES RELATIVE PERCENT 17 % (BEAKER) (test code = 430) MONOCYTES RELATIVE PERCENT 8 % (BEAKER) (test code = 431) EOSINOPHILS RELATIVE PERCENT 0 % (BEAKER) (test code = 432) BASOPHILS RELATIVE PERCENT 0 % (BEAKER) (test code = 437) NEUTROPHILS ABSOLUTE COUNT 6.58 K/ L 1.78-5.38 H (BEAKER) (test code = 670) LYMPHOCYTES ABSOLUTE COUNT 1.52 K/ L 1.32-3.57 (BEAKER) (test code = 414) MONOCYTES ABSOLUTE COUNT (BEAKER) 0.67 K/ L 0.30-0.82 (test code = 415) EOSINOPHILS ABSOLUTE COUNT 0.03 K/ L 0.04-0.54 L (BEAKER) (test code = 416) BASOPHILS ABSOLUTE COUNT (BEAKER) 0.02 K/ L 0.01-0.08 (test code = 417) IMMATURE GRANULOCYTES-RELATIVE 0 % 0-1 PERCENT (BEAKER) (test code = 2801) TROPONIN [id number] 01:47:00 Test Item Value Reference Range Interpretation Comments TROPONIN I (BEAKER) (test code = 0.02 ng/mL 0.00-0.03 397) Troponin I (TnI) levels must be interpreted [...] and persistent tachyarrhythmia.RAD, CHEST, 1 VIEW, NON [id number] 19:14:00Reason for exam:->Admission CXR; cvaShould this be performed at the bedside?->YesFINAL REPORT INDICATION: Admission CXR; cva COMPARISON: None TECHNIQUE: Single frontal view of the chest. FINDINGS: Lungs and pleura: Clear lungs. No effusion.Heart and mediastinum: Normal heart size. Unremarkable mediastinal contours.Osseous structures: No acute abnormality.Other: None. IMPRESSION: No acute intrathoracic abnormality. Signed: JR Gomez [facility] Verified Date/Time: 08/26/2017 19:14:38 Reading Location: [address] Reading Room Nandini ctronically signed by: LUCY GOMEZ on 08/26/2017 07:14 PMFIBRINOGEN 2017-08-26 18:43:00 Test Item Value Reference Range Interpretation Comments FIBRINOGEN LEVEL (BEAKER) (test 268 mg/dl 225-434 code = 658) [id number] 18:43:00 Test Item Value Reference Range Interpretation Comments PARTIAL THROMBOPLASTIN TIME 27.9 seconds 22.5-36.0 (BEAKER) (test code = 760) PROTHROMBIN [id number] 18:42:00 Test Item Value Reference Range Interpretation Comments PROTIME (BEAKER) (test code = 13.8 seconds 11.7-14.7 759) INR (BEAKER) (test code = 370) 1.1 <=5.9 RECOMMENDED COUMADIN/WARFARIN INR THERAPY RANGESSTANDARD DOSE: 2.0 - 3.0 Includes: PROPHYLAXIS forvenous thrombosis, systemic embolization; TREATMENT for venous thrombosis and/or pulmonary embolus.HIGH RISK: Target INR is 2.5-3.5 for patients with mechanical heart valves.HEMOGLOBIN [id number] 17:54:00 Test Item Value Reference Range Interpretation Comments HEMOGLOBIN A1C (BEAKER) (test code = 5.5 % 4.3-6.1 368) VITAMIN B12 AND [id number] 17:45:00 Test Item Value Reference Range Interpretation Comments VITAMIN B12 (BEAKER) (test code = 1294 pg/mL 213-816 H 774) FOLATE (BEAKER) (test code = 362) > ng/mL >=7.0 CT, BRAIN, WITHOUT [id number] 17:32:00FINAL REPORT CT, BRAIN, WITHOUT CONTRAST INDICATION: worsening left hand weakness, s/p tPA TECHNIQUE: Noncontrast axial imaging was obtained [...] MDReport Verified Date/Time: 08/26/2017 17:32:46 Reading Location: [address] Reading Room TSH/FREE T4 IF [id number] 16:47:00 Test Item Value Reference Range Interpretation Comments THYROID STIMULATING HORMONE 0.60 uIU/mL 0.35-4.94 (BEAKER) (test code = 772) CREATINE KINASE (CK), TOTAL AND [id number] 16:17:00 Test Item Value Reference Range Interpretation Comments CREATINE KINASE TOTAL (BEAKER) 121 U/L 29-200 (test code = 380) CREATINE KINASE-MB (BEAKER) (test 1.5 ng/mL 0.0-6.6 code = 750) CREATINE KINASE-MB INDEX (BEAKER) 1.2 % (test code = 395) CK-MB Reference Range:<6.7 Normal6.7-10.0 Borderline>10.0 AbnormalTROPONIN [id number] 16:17:00 Test Item Value Reference Range Interpretation Comments TROPONIN I (BEAKER) (test code = 397) < ng/mL 0.00-0.03 Troponin I (TnI) levels [...] acute neurological disease, and persistent tachyarrhythmia.HEPATIC FUNCTION [id number] 16:11:00 Test Item Value Reference Range Interpretation Comments TOTAL PROTEIN (BEAKER) (test code = 7.0 gm/dL 6.0-8.3 770) ALBUMIN (BEAKER) (test code = 1145) 4.0 g/dL 3.5-5.0 BILIRUBIN TOTAL (BEAKER) (test code 0.3 mg/dL 0.2-1.2 = 377) BILIRUBIN DIRECT (BEAKER) (test 0.1 mg/dL 0.1-0.5 code = 706) ALKALINE PHOSPHATASE (BEAKER) (test 148 U/L 40-150 code = 346) AST (SGOT) (BEAKER) (test code = 23 U/L 5-34 353) ALT (SGPT) (BEAKER) (test code = 21 U/L 6-55 347) BASIC METABOLIC [id number] 16:11:00 Test Item Value Reference Range Interpretation Comments SODIUM (BEAKER) 142 meq/L 136-145 (test code = 381) POTASSIUM (BEAKER) 4.3 meq/L 3.5-5.1 (test code = 379) CHLORIDE (BEAKER) 107 meq/L 98-107 (test code = 382) CO2 (BEAKER) (test 24 meq/L 22-29 code = 355) BLOOD UREA NITROGEN 10 mg/dL 7-21 (BEAKER) (test code = 354) CREATININE (BEAKER) 0.93 mg/dL 0.57-1.25 (test code = 358) GLUCOSE RANDOM 130 mg/dL 70-105 H (BEAKER) (test code = 652) CALCIUM (BEAKER) 8.7 mg/dL 8.4-10.2 (test code = 697) EGFR (BEAKER) (test 79 mL/min/1.73 ESTIMA LIZ GFR IS code = 1092) sq m NOT ACCURATE CREATININE CLEARANCE IN PREDICTING GLOMERULAR FILTRATION RATE . ESTIMATED GFR I S NOT APPLICABLE FOR DIALYSIS PATIEN TS. CBC W/PLT COUNT & AUTO [id number] 15:57:00 Test Item Value Reference Range Interpretation Comments WHITE BLOOD CELL COUNT (BEAKER) 11.7 K/ L 3.5-10.5 H (test code = 775) RED BLOOD CELL COUNT (BEAKER) 4.42 M/ L 4.63-6.08 L (test code = 761) HEMOGLOBIN (BEAKER) (test code = 14.3 GM/DL 13.7-17.5 410) HEMATOCRIT (BEAKER) (test code = 43.1 % 40.1-51.0 411) MEAN CORPUSCULAR VOLUME (BEAKER) 97.5 fL 79.0-92.2 H (test code = 753) MEAN CORPUSCULAR HEMOGLOBIN 32.4 pg 25.7-32.2 H (BEAKER) (test code = 751) MEAN CORPUSCULAR HEMOGLOBIN CONC 33.2 GM/DL 32.3-36.5 (BEAKER) (test code = 752) RED CELL DISTRIBUTION WIDTH 12.1 % 11.6-14.4 (BEAKER) (test code = 412) PLATELET COUNT (BEAKER) (test 179 K/CU MM 150-450 code = 756) MEAN PLATELET VOLUME (BEAKER) 10.1 fL 9.4-12.4 (test code = 754) NUCLEATED RED BLOOD CELLS 0 /100 WBC 0-0 (BEAKER) (test code = 413) NEUTROPHILS RELATIVE PERCENT 85 % (BEAKER) (test code = 429) LYMPHOCYTES RELATIVE PERCENT 10 % (BEAKER) (test code = 430) MONOCYTES RELATIVE PERCENT 4 % (BEAKER) (test code = 431) EOSINOPHILS RELATIVE PERCENT 0 % (BEAKER) (test code = 432) BASOPHILS RELATIVE PERCENT 0 % (BEAKER) (test code = 437) NEUTROPHILS ABSOLUTE COUNT 9.99 K/ L 1.78-5.38 H (BEAKER) (test code = 670) LYMPHOCYTES ABSOLUTE COUNT 1.15 K/ L 1.32-3.57 L (BEAKER) (test code = 414) MONOCYTES ABSOLUTE COUNT (BEAKER) 0.48 K/ L 0.30-0.82 (test code = 415) EOSINOPHILS ABSOLUTE COUNT 0.03 K/ L 0.04-0.54 L (BEAKER) (test code = 416) BASOPHILS ABSOLUTE COUNT (BEAKER) 0.03 K/ L 0.01-0.08 (test code = 417) IMMATURE GRANULOCYTES-RELATIVE 0 % 0-1 PERCENT (BEAKER) (test code = 2801)
--- OUTSIDE RECORDS SUMMARY | 2020-07-29 10:42 | XMS REPORT | Summary of Care ---
:1940 Author Organization [facility] Address [address] [place] [id number] Care Team Providers Name Role Phone Mario Esparza Primary Care Provider Reason for Visit Reason Comments LAB Encounter Details Date Type Department Care Team Description 05/13/2020 Hotel Or Motel Manager Visit [facility] Martha Padron MD [address] [facility] [address] [place] [address] Nonrheumatic aortic valve insufficiency; Professional Office 2, Adc Lab PAF (paroxysmal atrial fibrillation); Building Phlebotomy History of arterial ischemic stroke; Lab Hyperlipidemia, unspecified hyperlipidemia type Professional Office Building [address] [facility] [address] [place] [address] Allergies No Known Allergiesdocumented as of this encounter (statuses as of 05/13/2020) Medications Medication Sig Dispensed Refills Start Date End Date Status lansoprazole Take 30 mg by mouth 0 Active (PREVACID) 30 mg daily. capsule Fish Oil-[place]-3 Take 1 capsule by 0 Active Fatty Acids (FISH mouth daily. OIL OMEGA 3-6-9) 300-1,000 mg CpDR MAGNESIUM CITRATE Take 250 mg by 0 Active ORAL mouth daily. Zinc (CHELATED ZINC) Take 1 tablet by 0 Active 50 mg Tab mouth daily. vitamin C with rickie Take 1,000 mg by 0 Active hips 1,000 mg tablet mouth daily. aspirin 81 mg Take 81 mg by mouth 0 Active chewable tablet daily. montelukast 10 mg Take 10 mg by mouth 0 Active tablet daily. allopurinoL 300 mg Take 300 mg by 0 Active tablet mouth daily. Lactobac Take by mouth 0 Activ e no.41/Bifidobact daily. no.7 (PROBIOTIC-10 ORAL) fexofenadine Take 180 mg by 0 Ac tive (ALLERGY RELIEF, mouth daily. FEXOFENADINE,) 180 mg tablet acetaminophen Take 650 mg by 0 A ctive (TYLENOL ARTHRITIS mouth every 8 PAIN) 650 mg CR (eight) hours as tablet needed for Pain. carvediloL 12.5 mg Take 1 tablet by 180 tablet 1 11/20/2019 Active tabletIndications: mouth 2 (two) times PAF (paroxysmal daily with meals. atrial fibrillation) atorvastatin 80 mg Take 1 tablet by 30 tablet 1 12/26/2019 Active tabletIndications: mouth at bedtime. PAF (paroxysmal atrial fibrillation), Essential hypertension, Status post placement of implantable loop recorder, History of arterial ischemic stroke candesartan 32 mg Take 1 tablet by 90 tablet 1 01/30/2020 Active tabletIndications: mouth daily. PAF (paroxysmal atrial fibrillation), Essential hypertension, Status post placement of implantable loop recorder, History of arterial ischemic stroke triamterene-hydrochl Take 1 capsule by 30 capsule 3 02/18/2020 Active orothiazide 37.5-25 mouth every other mg per day. capsuleIndications: Essential hypertension rivaroxaban 15 mg Take 1 tablet by 30 tablet 5 05/12/2020 Active tabletIndications: mouth daily. atrial fibrillation Indications: atrial fibrillation documented as of this encounter (statuses as of 05/13/2020) Active Problems Not on filedocumented as of this encounter (statuses as of 05/13/2020) Social History Tobacco Use Types Packs/Day Years Used Date Never Smoker Smokeless Tobacco: Never Used Alcohol Use Drinks/Week oz/Week Comments No 0 Standard drinks or equivalent 0.0 Sex Assigned at Date Recorded Not on file COVID-19 Exposure Response Date Recorded In the last month, have you been in contact with No / Unsure 05/12/2020 1:34 PM CDT someone who was confirmed or suspected to have Coronavirus / COVID-19? documented as of this encounter Last Filed Vital Signs Not on filedocumented in this encounter Nursing Notes Iris Negron - 05/13/2020 9:30 AM CDT Venipuncture collection performed by clean technique on the right anticubitus. Total of 1 attempts were made. Slight pressure and a bandage/dressing were applied to the site(s). The patient experiencedno complications. The following specimens were processed according to instructions and sent to [facility] laboratories per lab order on 05/13/20: LT BLUE SST 1 RED LAV 1 PPT DK GREEN (LiHep) DK GREEN (SodH) ARANDA DK BLUE (K2) DK BLUE (S) ACD Blood Culture NIPT/NTD documented in this encounter Plan of Treatment Date Type Specialty Care Team Description 11/10/2020 Office Visit Cardiology Martha Padron M D [address] [place] [address] 15 [phone] Health Maintenance Due Date Last Done Comments DTaP,Tdap,and Td Vaccines (1 - Tdap) 1960 Zoster Recombinant Vaccine (SHINGRIX) (1 of 2) 1991 Medicare Wellness Visit 2006 PNEUMOCOCCAL VACCINES 65+ (1 of 1 - PPSV23) 2006 INFLUENZA VACCINE (#1) 2020 Depression Screening 05/12/2021 05/12/2020 documented as of this encounter Implants Implanted Type Area Supervisor Pipeline Device Shelf Model / Serial Identifier Expiration / Lot Date Lens LENS Estuardo 10/15/2019 [id number] / Implanted: Qty: 1 on 12/24/2015 by Janes Claros MD at [facility] 2 [id number] / [id number] Acrysof Iq Toric LENS Right: Estuardo 07/16/2019 SN [id number] / Implanted: Qty: 1 on 01/07/2016 by Janes Claros MD at [facility] Eye 1 [id number] / [id number] documented as of this encounter Results Not on filedocumented in this encounter Visit Diagnoses Diagnosis Nonrheumatic aortic valve insufficiency Aortic valve disorders PAF (paroxysmal atrial fibrillation) Atrial fibrillation History of arterial ischemic stroke Transient ischemic attack (TIA), and cer ebral infarction without residual deficits Hyperlipidemia, unspecified hyperlipidem ia type documented in this encounter Insurance Payer Benefit Plan Subscriber ID Effective Phone Address Typ e / Group Dates AETNA - AETNA [id number] 2015-e P O BOX Medic are Adv MANAGED MEDICARE ADV nt [id number] [place] [phone] documented as of this encounter
--- OUTSIDE RECORDS SUMMARY | 2020-07-29 10:42 | XMS REPORT | Summary of Care ---
:[address] [facility] Address [address] [place] [address] Care Team Providers Name Role Phone Vilma Mario Ronaldo Primary Care Provider Reason for Visit Reason Comments Follow-up PAF (paroxysmal atrial fibri llation) Encounter Details Date Type Department Care Team Description 05/12/2020 Office Visit [facility] Martha Padron M D PAF (paroxysmal atrial fibrillation) (Pr imary Dx); Cardiology- [address] Nonrheumatic aortic valve in sufficiency; [address] [place] [address] DRIVE History of arterial ischemic stroke; Drive, [address] Hyperlipidemia, unspecified hyperlipidem ia type; [place], [place] [address] Essential hypertension; [id number] Leg edema; [phone] Rectal bl eeding Allergies No Known Allergiesdocumented as of this encounter (statuses as of 05/12/2020) Medications Medication Sig Dispensed Refills Start End Date Status Date lansoprazole Take 30 mg by 0 Act juan r (PREVACID) 30 mg mouth daily. capsule Fish Oil-[place]-3 Take 1 capsule 0 Active Fatty Acids (FISH by mouth daily. OIL OMEGA 3-6-9) 300-1,000 mg CpDR MAGNESIUM CITRATE Take 250 mg by 0 Active ORAL mouth daily. Zinc (CHELATED Take 1 tablet by 0 Active ZINC) 50 mg Tab mouth daily. vitamin C with Take 1,000 mg by 0 Active rickie hips 1,000 mouth daily. mg tablet aspirin 81 mg Take 81 mg by 0 Ac tive chewable tablet mouth daily. montelukast 10 mg Take 10 mg by 0 Active tablet mouth daily. allopurinoL 300 Take 300 mg by 0 Active mg tablet mouth daily. Lactobac Take by mouth 0 Activ e no.41/Bifidobact daily. no.7 (PROBIOTIC-10 ORAL) fexofenadine Take 180 mg by 0 Ac tive (ALLERGY RELIEF, mouth daily. FEXOFENADINE,) 180 mg tablet acetaminophen Take 650 mg by 0 A ctive (TYLENOL mouth every 8 ARTHRITIS PAIN) (eight) hours as 650 mg CR tablet needed for Pain. carvediloL 12.5 Take 1 tablet by 180 tablet 1 Active mg mouth 2 (two) 0 tabletIndications times daily with : PAF (paroxysmal meals. atrial fibrillation) atorvastatin 80 Take 1 tablet by 30 tablet 1 Active mg mouth at 0 tabletIndications bedtime. : PAF (paroxysmal atrial fibrillation), Essential hypertension, Status post placement of implantable loop recorder, History of arterial ischemic stroke candesartan 32 mg Take 1 tablet by 90 tablet 1 Active tabletIndications mouth daily. 0 : PAF (paroxysmal atrial fibrillation), Essential hypertension, Status post placement of implantable loop recorder, History of arterial ischemic stroke triamterene-hydro Take 1 capsule 30 capsule 3 Active chlorothiazide by mouth every 0 37.5-25 mg per other day. capsuleIndication s: Essential hypertension rivaroxaban 15 mg Take 1 tablet by 30 tablet 5 Active tabletIndications mouth daily. 0 : atrial Indications: fibrillation atrial fibrillation rivaroxaban 15 mg Take 1 tablet by 30 tablet 0 05/12 Discontinued tabletIndications mouth daily. 0 20 (Reorder) : atrial Indications: fibrillation atrial fibrillation documented as of this encounter (statuses as of 05/12/2020) Active Problems Not on filedocumented as of this encounter (statuses as of 05/12/2020) Social History Tobacco Use Types Packs/Day Years [...] of this encounter Last Filed Vital Signs Vital Sign Reading Time Taken Comments Blood Pressure 155/68 05/12/2020 1:54 PM CDT Pulse 75 05/12/2020 1:51 PM CDT Temperature - - Respiratory Rate 19 05/12/2020 1:51 PM CDT Oxygen Saturation 97% 05/12/2020 1:51 PM CDT Inhaled Oxygen Concentration - - Weight 81.7 kg (180 lb 3.2 oz) 05/12/2020 1:51 PM CDT Height 172.7 cm (5' 8") 05/12/2020 1:51 PM CDT Body Mass Index 27.4 05/12/2020 1:51 PM CDT documented in this encounter Progress Notes Martha Padron MD - 05/12/2020 1:40 PM CDT CARDIOLOGY CLINIC NOTE 05/12/2020 Reason for Referral/Presenting Complaint: Afib PCP: Mairo Esparza History of Present Illness: Dayron Boggs is a 80 years old male with history of pAfib, HTN and ischemic stroke. In 08/2017 he presented with left sided weakness and received tPA in [facility] and was transferred to [facility]. 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 In 09/2017 he underwent ILR for cryptogenic stroke. Later was found to have paroxysmal Afib. Started on Xarelto. He stopped taking it due to rectal bleeding. C/o leg edema for a while. Last visit we stopped amlodipine and started dyazide. Leg edema has improved. Lost a few lbs. BP is normal around 130/60s. No dizziness. Cardiovascular testing: EKG: reviewed by me--09/09/2019 Normal sinus rhythm. Normal EKG. ECHO 2018 The LV endocardium is well visualized. The left ventricle is chamber size (by vol index) is normal (male - LVED vol - 34-74ml/m2). [id number] concentric LV hypertrophy. All of the LV segments have low normal contractility . Global LV systolic function lower limits of normal . LVEF by Brown's method of disk assessment is lower limits of normal (50-55%) . Degree of diastolic dysfunction (LAP assessment) is inconclusive due to arrhtymia . The right ventricular chamber size and systolic function are within normal limits. IV saline contrast injection was negative for a PFO (patent foramen ovale) at rest and post Valsalva . IV saline contrast with delayed imaging demonstrates intra pulmonic shunting. Mild tp moderate aortic regurgitation. Unable to estimate peak systolic PA pressure; inadequate TR velocity signal. No significant pericardial effusion is visualized Review of Systems: General: (-) fever, (-) chills, (-) weight change, (-) dizziness, (-) fatigue Skin: (-) rash HEENT: (-) headache, (-) change in vision Neck: (-) difficulty swallowing Heme: negative Resp: (-) cough, (-) dyspnea on exertion Cardio: (-) chest pain, (-) palpitations, (-) syncope GI: (-) vomiting, (-) diarrhea : negative Endo: (-) diabetes, (-) thyroid disease Neuro: (-) numbness, (-) tingling, (+) weakness Back: (-) pain TYRA: (-) muscle pain, (-) claudication Psych: (-) anxiety, (-) depression Past Medical History: Past Medical History: Diagnosis Date Cataract HTN (hypertension) Current Medications: Current Outpatient Medications Medication Sig Dispense Refill rivaroxaban 15 mg tablet Take 1 tablet by mouth daily. Indications: atrial fibrillation 30 tablet 5 triamterene-hydrochlorothiazide 37.5-25 mg per capsule Take 1 capsule by mouth every other day. 30 capsule 3 candesartan 32 mg tablet Take 1 tablet by mouth daily. 90 tablet 1 atorvastatin 80 mg tablet Take 1 tablet by mouth at bedtime. 30 tablet 1 carvediloL 12.5 mg tablet Take 1 tablet by mouth 2 (two) times daily with meals. 180 tablet 1 acetaminophen (TYLENOL ARTHRITIS PAIN) 650 mg CR tablet Take 650 mg by mouth every 8 (eight) hours as needed for Pain. allopurinoL 300 mg tablet Take 300 mg by mouth daily. fexofenadine (ALLERGY RELIEF, FEXOFENADINE,) 180 mg tablet Take 180 mg by mouth daily. Lactobac no.41/Bifidobact no.7 (PROBIOTIC-10 ORAL) Take by mouth daily. montelukast 10 mg tablet Take 10 mg by mouth daily. aspirin 81 mg chewable tablet Take 81 mg by mouth daily. Fish Oil-Coleman-3 Fatty Acids (FISH OIL OMEGA 3-6-9) 300-1,000 mg CpDR Take 1 capsule by mouth daily. lansoprazole (PREVACID) 30 mg capsule Take 30 mg by mouth daily. MAGNESIUM CITRATE ORAL Take 250 mg by mouth daily. vitamin C with rickie hips 1,000 mg tablet Take 1,000 mg by mouth daily. Zinc (CHELATED ZINC) 50 mg Tab Take 1 tablet by mouth daily. No current facility-administered medications for this visit. Social History: Social History Socioeconomic History Marital status: Spouse name: Not on file Number of children: Not on file Years of education: Not on file Highest education level: Not on file Occupational History Not on file Social Needs Financial resource strain: Not on file Food insecurity Worry: Not on file Inability: Not on file Transportation needs Medical: Not on file Non-medical: Not on file Tobacco Use Smoking status: Never Smoker Smokeless tobacco: Never Used Substance and Sexual Activity Alcohol use: No Alcohol/week: 0.0 standard drinks Drug use: No Sexual activity: Not on file Lifestyle Physical activity Days per week: Not on file Minutes per session: Not on file Stress: Not on file Relationships Social connections Talks on phone: Not on file Gets together: Not on file Attends episcopal service: Not on file Active member of club or organization: Not on file Attends meetings of clubs or organizations: Not on file Relationship status: Not on file Intimate partner violence Fear of current or ex partner: Not on file Emotionally abused: Not on file Physically abused: Not on file Forced sexual activity: Not on file Other Topics Concern Not on file Social History Narrative Not on file Family History Family History Problem Relation Age of Onset No Significant Medical Problems Mother No Significant Medical Problems Father Physical Examination: Vitals: 05/12/20 1351 05/12/20 1354 BP: (!) 149/69 (!) 155/68 BP Location: Left arm Patient Position: Sitting BP CUFF SIZE: Adult Medium Pulse: 75 Resp: 19 SpO2: 97% Weight: 180 lb 3.2 oz (81.7 kg) Height: 5' 8" (1.727 m) Constitutional: alert and oriented x 3 (person, place and date/time); no apparent distress ENT: normocephalic atraumatic, supple, no lymphadenopathy, no bruits, no JVD Lungs: clear to auscultation bilaterally Cardiovascular: S1, S2 normal, regular; no murmurs, rubs or gallops GI: soft; non-tender; non-distended; normoactive bowel sounds : not examined Musculoskeletal: Extremities: no clubbing, cyanosis, or edema Skin: no rashes Neuro: no focal deficits Assessment/Plan: ICD-10-CM ICD-9-CM 1. PAF (paroxysmal atrial fibrillation) I48.0 427.31 2. Nonrheumatic aortic valve insufficiency I35.1 424.1 3. History of arterial ischemic stroke Z86.73 V12.54 4. Hyperlipidemia, unspecified hyperlipidemia type E78.5 272.4 5. Essential hypertension I10 401.9 6. Leg edema R60.0 782.3 7. Rectal bleeding K62.5 569.3 Paroxysmal Afib--No palpitations. Continue coreg 12.5 mg BID. Recommend to continue Xarelto and we reduced to 15 mg daily given rectal bleeding. CHADSVASc score 5. Skin bruising. S/p ILR--Device check in 03/2020 reviewed. Leg edema--Improved since we stopped amlodipine and started Dyazide. Low salt diet. HTN--Well controlled with candesartan/coreg. H/o stroke--Continue ASA and lipitor. Will check CBC/BMP/Lipids. Patient was counseled for lifestyle modifications including: diet and exercise. RTC 6 months Martha Padron MD, FACC, PORFIRIO Cranberry Sorter, Division of Cardiology [facility] documented in this encounter Plan of Treatment Date Type Specialty Care Team Description 05/13/[address] Visit Phlebotomy 2, Adc Lab 11/10/2020 Office Visit Cardiology Martha Padron M D [address] [place] [address] 15 [phone] Name Type Priority Associated Diagnoses Order S chedule CBC WITHOUT DIFF LAB Routine Nonrheumatic aortic valv e 1 Occurrences starting insufficiency 05/12/2020 until PAF (paroxysmal atrial 08/10 fibrillation) BASIC METABOLIC PANEL LAB Routine Nonrheumatic aortic valve 1 Occurrences starting (NA, K, CL, CO2, insufficiency 05/12/2020 until GLUCOSE, BUN, PAF (paroxysmal atrial 07/18 CREATININE, CA) fibrillation) LIPID PANEL LAB Routine Nonrheumatic aortic valve 1 Occurrences starting (27714)(TOTAL insufficiency 05/12/2020 until CHOLESTEROL, PAF (paroxysmal atrial 08/12 TRIGLYCERIDES, HDL) fibrillation ) History of arterial ischemic stroke Hyperlipidemia, unspecified hyperlipidemia type Health Maintenance Due Date Last Done Comments DTaP,Tdap,and Td Vaccines (1 - Tdap) 1960 Zoster Recombinant Vaccine (SHINGRIX) (1 of 2) 1991 Medicare Wellness Visit 2006 PNEUMOCOCCAL VACCINES 65+ (1 of 1 - PPSV23) 2006 INFLUENZA VACCINE (#1) 2020 Depression Screening 05/12/2021 05/12/2020 documented as of this encounter Implants Implanted Type Area Hospice Social Worker Device Shelf Model / Serial Identifier Expiration / Lot Date Lens LENS Estuardo 10/15/2019 [id number] / Implanted: Qty: 1 on 12/24/2015 by Janes Claros MD at [facility] 5 [id number] / [id number] Acrysof Iq Toric LENS Right: Estuardo 07/16/2019 SN [id number] / Implanted: Qty: 1 on 01/07/2016 by Janes Claros MD at [facility] Eye 1 [id number] / [id number] documented as of this encounter Results Not on filedocumented in this encounter Visit Diagnoses Diagnosis PAF (paroxysmal atrial fibrillation) - P rimary Atrial fibrillation Nonrheumatic aortic valve insufficiency Aortic valve disorders History of arterial ischemic stroke Transient ischemic attack (TIA), and cer ebral infarction without residual deficits Hyperlipidemia, unspecified hyperlipidem ia type Essential hypertension Unspecified essential hypertension Leg edema Edema Rectal bleeding Hemorrhage of rectum and anus documented in this encounter Insurance Payer Benefit Plan Subscriber ID Effective Phone Address Typ e / Group Dates AETNA - AETNA [id number] 2015-Prese P O BOX Medic are Adv MANAGED MEDICARE ADV nt [id number] O MEDICARE [place] [phone] documented as of this encounter
--- OUTSIDE RECORDS SUMMARY | 2020-07-29 10:42 | XMS REPORT | Summary of Care ---
:1940 Author Organization [facility] Address [address] [place] [address] Care Team Providers Name Role Phone Vilma Mario Ronaldo Primary Care Provider Reason for Visit Reason Comments Follow-up PAF (paroxysmal atrial fibri llation) Encounter Details Date Type Department Care Team Description 05/12/2020 Office Visit [facility] Martha Padron M D PAF (paroxysmal atrial fibrillation) (Pr imary Dx); Cardiology- [address] Nonrheumatic aortic valve in sufficiency; [address] [place] [address] DRIVE History of arterial ischemic stroke; Drive, [address] Hyperlipidemia, unspecified hyperlipidem ia type; [place], [place] [address] Essential hypertension; [id number] Leg edema; [phone] Rectal bl eeding Allergies No Known Allergiesdocumented as of this encounter (statuses as of 05/12/2020) Medications Medication Sig Dispensed Refills Start End Date Status Date lansoprazole Take 30 mg by 0 Act juan r (PREVACID) 30 mg mouth daily. capsule Fish Oil-[place]-3 Take 1 capsule 0 Active Fatty Acids [...] 05/12/2020 Reason for Referral/Presenting Complaint: Afib PCP: Mario Esparza History of Present Illness: Dayron Boggs is a 80 years old male with history of pAfib, HTN and ischemic stroke. In 08/2017 he presented with left sided weakness and received tPA in [facility] and was transferred to [facility]. 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 In 09/2017 [...] normal (male - LVED vol - 34-74ml/m2). [id number] concentric LV hypertrophy. All of the LV [...] Take 81 mg by mouth daily. Fish Oil-[place]-3 Fatty Acids (FISH OIL OMEGA 3-6-9) 300-1,000 [...] file Gets together: Not on file Attends orthodoxy service: Not on file Active member of [...] 6 months Martha Padron MD, FACC, PORFIRIO Toolmaker, Division of Cardiology [facility] documented in this encounter Plan of Treatment Date Type Specialty Care Team Description 05/13/2020 Rn Team Leader Visit Phlebotomy 2, Adc Lab 11/10/2020 Office Visit Cardiology Martha Padron M D [address] [place] [address] 15 [phone] Name Type Priority Associated Diagnoses Order S [...] Routine Nonrheumatic aortic valve 1 Occurrences starting (22669)(TOTAL insufficiency 05/12/2020 until CHOLESTEROL, PAF (paroxysmal atrial [...] this encounter Implants Implanted Type Area Supervisor Grinding Device Shelf Model / Serial Identifier Expiration / Lot Date Lens LENS Estuardo 10/15/2019 [id number] / Implanted: Qty: 1 on 12/24/2015 by Janes Claros MD at [facility] 2 [id number] / [id number] Acrysof Iq Toric LENS Right: Estuardo 07/16/2019 SN [id number] / Implanted: Qty: 1 on 01/07/2016 by Janes Claros MD at [facility] Eye 1 [id number] / [id number] documented as of this encounter [...] e / Group Dates AETNA - AETNA [id number] 2015-Prese P O BOX Medic are Adv MANAGED MEDICARE ADV nt [id number] O MEDICARE [place] [phone] documented as of this encounter
--- OUTSIDE RECORDS SUMMARY | 2020-07-29 10:42 | XMS REPORT | Summary of Care ---
:1940 Author Organization [facility] Address [address] [place] [address] Care Team Providers Name Role Phone EsparzaMario Ronaldo Primary Care Provider Encounter Details Date Type Department Care Team Description 04/20/2020 Hospital Encounter [facility] Isabella Lopez MD [address] [facility] [place] [address] Center EP Device Alcira, Remote Device Check At Home - Clinic [facility] [address] [facility] [address], [address] [place] [address] Allergies No Known Allergiesdocumented as of this encounter (statuses as of 05/09/2020) Medications Medication Sig Dispensed Refills Start Date End Date Status lansoprazole Take 30 mg by mouth 0 Active (PREVACID) 30 mg daily. capsule Fish Oil-Devine-3 Take 1 capsule by 0 Active Fatty [...] Take 1 tablet by 30 tablet 0 04/14/2020 Active tabletIndications: mouth daily. atrial fibrillation Indications: atrial fibrillation documented as of this encounter (statuses as of 05/09/2020) Active Problems Not on filedocumented as of this encounter (statuses as of 05/09/2020) Social History Tobacco Use Types Packs/Day Years Used Date Never Smoker Smokeless Tobacco: Never Used Alcohol Use Drinks/Week oz/Week Comments No 0 Standard drinks or equivalent 0.0 Sex Assigned at Date Recorded Not on file documented as of this encounter Last Filed Vital Signs Not on filedocumented in this encounter Plan of Treatment Date Type Specialty Care Team Description 05/12/2020 Office Visit Cardiology Martha Padron M D [address] [address] 15 [phone] Health Maintenance Due Date Last Done Comments Depression Screening 1953 DTaP,Tdap,and Td Vaccines (1 - Tdap) 1960 Zoster Recombinant Vaccine (SHINGRIX) (1 of 2) 1991 Medicare Wellness Visit 2006 PNEUMOCOCCAL VACCINES 65+ (1 of 1 - PPSV23) 2006 INFLUENZA VACCINE (#1) 2020 documented as of this encounter Implants Implanted Type Area Clinical Liaison Device Shelf Model / Serial Identifier Expiration / Lot Date Lens LENS Estuardo 10/15/2019 [id number] / Implanted: Qty: 1 on 12/24/2015 by Janes Claros MD at [facility] 6 [id number] / [id number] Acrysof Iq Toric LENS Right: Estuardo 07/16/2019 SN [id number] / Implanted: Qty: 1 on 01/07/2016 by Janes Claros MD at [facility] Eye 1 [id number] / [id number] 25 documented as of this encounter Results Not on filedocumented in this encounter Insurance Payer Benefit Plan Subscriber ID Effective Phone Address Typ e / Group Dates AETNA - AETNA [id number] 2015-Prese P O BOX Medic are Adv MANAGED MEDICARE ADV [place] [id number] [place] [address] documented as of this encounter
--- OUTSIDE RECORDS SUMMARY | 2020-07-29 10:43 | XMS REPORT | Summary of Care ---
:1940 Author Organization [facility] Address [address] [place] [address] Care Team Providers Name Role Phone Mario Esparza Ronaldo Primary Care Provider Reason for Visit Reason Comments Refill Request Encounter Details Date Type Department Care Team Description 06/08/2020 Telephone [facility] Cardiology- Lorenzo Padron MD Refill Request [address] [facility], [address] [place] [address] [place] [address] [phone] Allergies No Known Allergiesdocumented as of this encounter (statuses as of 06/08/2020) Medications Medication Sig Dispensed Refills Start Date End Date Status lansoprazole Take 30 mg by 0 Act juan r (PREVACID) 30 mg mouth daily. capsule Fish Oil-Atlantic-3 Take 1 capsule by 0 Active Fatty Acids (FISH mouth daily. OIL OMEGA 3-6-9) 300-1,000 mg CpDR MAGNESIUM CITRATE Take 250 mg by 0 Active ORAL mouth daily. Zinc (CHELATED Take 1 tablet by 0 Active ZINC) 50 mg Tab mouth daily. vitamin C with Take 1,000 mg by 0 Active rickie hips 1,000 mg mouth daily. tablet aspirin 81 mg Take 81 mg by 0 Ac tive chewable tablet mouth daily. montelukast 10 mg Take 10 mg by 0 Active tablet mouth daily. allopurinoL 300 mg Take 300 mg [...] (eight) hours as tablet needed for Pain. atorvastatin 80 mg Take 1 tablet by [...] loop recorder, History of arterial ischemic stroke triamterene-hydroc Take 1 capsule by 30 capsule 3 02/18/2020 Active hlorothiazide mouth every other 37.5-25 mg per day. capsuleIndications : Essential hypertension rivaroxaban 15 mg Take 1 tablet by 30 tablet 5 05/12/2020 Active tabletIndications: mouth daily. atrial Indications: fibrillation atrial fibrillation carvediloL 12.5 mg Take 1 tablet by 180 tablet 1 06/08/2020 Active tabletIndications: mouth 2 (two) PAF (paroxysmal times daily with atrial meals. fibrillation) carvediloL 12.5 mg Take 1 tablet by 180 tablet 1 11/20/2019 Discontinued tabletIndications: mouth 2 (two) 20 PAF (paroxysmal times daily with atrial meals. fibrillation) documented as of this encounter (statuses as of 06/08/2020) Active Problems Not on filedocumented as of this encounter (statuses as of 06/08/2020) Social History Tobacco Use Types Packs/Day Years [...] Signs Not on filedocumented in this encounter Miscellaneous Notes Telephone Encounter - Sheron Rdz RN - 06/08/2020 2:44 PM CST Requested Prescriptions Pending Prescriptions Disp Refills carvediloL 12.5 mg tablet 180 tablet 1 Sig: Take 1 tablet by mouth 2 (two) times daily with meals. Sent per guidelines. 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 is a 80 year old male Patient calling requesting refill for carvediloL 12.5 mg tablet Pharmacy [address] documented in this encounter Plan of Treatment Date Type Specialty Care Team Description 11/10/2020 Office Visit Cardiology Martha Padron M D [address] [place] [address] 15 Health Maintenance Due Date Last Done Comments DTaP,Tdap,and Td Vaccines (1 - Tdap) 1960 Zoster Recombinant Vaccine (SHINGRIX) (1 of 2) 1991 Medicare Wellness Visit 2006 PNEUMOCOCCAL VACCINES 65+ (1 of 1 - PPSV23) 2006 INFLUENZA VACCINE (#1) 2020 Depression Screening 05/12/2021 05/12/2020 documented as of this encounter Implants Implanted Type Area Lunchroom Supervisor Device Shelf Model / Serial Identifier Expiration / Lot Date Lens LENS Estuardo 10/15/2019 [id number] / Implanted: Qty: 1 on 12/24/2015 by Janes Claros MD at [facility] 3 [id number] / [id number] Acrysof Iq Toric LENS Right: Estuardo 07/16/2019 SN 6AT5 / Implanted: Qty: 1 on 01/07/2016 by Janes Claros MD at [facility] Eye 1 [id number] / [id number] 25 documented as of this encounter Results Not on filedocumented in this encounter Visit Diagnoses Diagnosis PAF (paroxysmal atrial fibrillation) Atrial fibrillation documented in this encounter Insurance Payer Benefit Plan Subscriber ID Effective Phone Address Typ e / Group Dates AETNA - AETNA [id number] 2015-Aleja Holcomb BOX Medic are Adv MANAGED MEDICARE ADV nt [id number] [place] [address] documented as of this encounter
--- OUTSIDE RECORDS SUMMARY | 2020-07-29 10:43 | XMS REPORT | Summary of Care ---
:1940 Author Organization [facility] Address [address] [place] [address] Care Team Providers Name Role Phone EsparzaMario Ronaldo Primary Care Provider Encounter Details Date Type Department Care Team Description 05/20/2020 Hospital Encounter [facility] Isabella Lopez MD [address] [facility] [place] [address] Center EP Device Alcira, Remote Device Check At Home - Clinic [facility] 7[address] [facility] [address], [address] [place] [address] Allergies No Known Allergiesdocumented as of this encounter (statuses as of 06/05/2020) Medications Medication Sig Dispensed Refills Start Date End Date Status lansoprazole Take 30 mg by mouth 0 Active (PREVACID) 30 mg daily. capsule Fish Oil-[place]-3 Take 1 capsule by 0 Active Fatty [...] as of this encounter (statuses as of 06/05/2020) Active Problems Not on filedocumented as of this encounter (statuses as of 06/05/2020) Social History Tobacco Use Types Packs/Day Years [...] Office Visit Cardiology Martha Padron M D [address] [place] [address] 15 [phone] Health Maintenance Due Date Last Done Comments DTaP,Tdap,and Td Vaccines (1 - Tdap) 1960 Zoster Recombinant Vaccine (SHINGRIX) (1 of 2) 1991 Medicare Wellness Visit 2006 PNEUMOCOCCAL VACCINES 65+ (1 of 1 - PPSV23) 2006 INFLUENZA VACCINE (#1) 2020 Depression Screening 05/12/2021 05/12/2020 documented as of this encounter Implants Implanted Type Area Stud Driver Device Shelf Model / Serial Identifier Expiration / Lot Date Lens LENS Estuardo 10/15/2019 [id number] / Implanted: Qty: 1 on 12/24/2015 by Janes Claros MD at [facility] 2 [id number] / [id number] Acrysof Iq Toric LENS Right: Estuardo 07/16/2019 SN 6AT5 / Implanted: Qty: 1 on 01/07/2016 by Janes Claros MD at [facility] Eye 1 [id number] / [id number] 25 documented as of this encounter Results Not on filedocumented in this encounter Insurance Payer Benefit Plan Subscriber ID Effective Phone Address Typ e / Group Dates AETNA - AETNA [id number] 2015-Prese P O BOX Medic are Adv MANAGED MEDICARE ADV nt [id number] [place] [address] documented as of this encounter
[2020-07-29 11:36] LABS: Basophils % 0.6 % (0-1.3); Lymphocytes % 19.1 % (15.3-44.8); MPV 8.7 fL (7.6-11.3); RBC Red Blood Cell Count 2.03 M/uL (4.33-5.43)
[2020-07-29 11:41] LABS: Protime INR 2.19
[2020-07-29 11:54] LABS: ALT/SGPT 25 U/L (12-78); AST/SGOT 15 U/L (15-37); Albumin 3.3 g/dL (3.4-5.0); Alkaline Phosphatase 181 U/L (45-117); BUN Blood Urea Nitrogen 18 mg/dL (7-18); Bicarbonate 26 mmol/L (21-32); Bilirubin Direct < 0.1 mg/dL (0-0.2); Bilirubin Total 0.2 mg/dL (0.2-1.0); Glucose Level 117 mg/dL (74-106); Lipase 260 U/L (73-393); Potassium 4.4 mmol/L (3.5-5.1); Protein, Total 6.3 g/dL (6.4-8.2); Sodium Level 142 mmol/L (136-145)
--- NOTE | 2020-07-29 11:57 | RAD REPORT ---
EXAM DESCRIPTION: CT - Abdomen Pelvis Wo Contrast - 07/29/2020 11:43 am CLINICAL HISTORY: Abdominal pain. rectal bleeding COMPARISON: [facility] Protocol dated 03/09/2019 TECHNIQUE: CT imaging of the abdomen and pelvis was performed without contrast. Solid organ, bowel a nd vascular assessment is limited due to lack of IV and oral contrast. All CT scans are performed using dose optimization technique as appropriate and may include automated exposure control or mA/KV adjustment according to patient size. FINDINGS: The lower lung ga are clear. Cholelithiasis is present.The liver demonstrates no focal mass or biliary dilatation. The spleen, dhaliwal creas, adrenal glands are normal. 5 cm cyst is present superomedial pole left kidney. Punctate bilate ral nephrolithiasis is present without hydronephrosis. No bowel obstruction, free air, free fluid or abscess. Small fat containing umbilical hernia. The suzi endix is normal. Prominent sigmoid diverticulosis coli without diverticulitis. Small bilateral fat co ntaining inguinal hernias. Aortoiliac atherosclerosis. Prominent degenerative changes seen at L3-4. Vacuum disc degeneration at L3-4 and L4-5. Moderate cent ral canal stenosis. IMPRESSION: Cholelithiasis. Punctate bilateral nephrolithiasis without hydronephrosis. Sigmoid diverticulosis coli without diverticulitis. A limited non-contrast examination was performed as detailed.
--- NOTE | 2020-07-29 12:32 | ER ---
Nurse's Notes [facility] Name: Dayron Boggs Age: 80 yrs Sex: Male : 1940 Arrival Date: 07/29/2020 Time: 10:42 Bed 16 Private MD: Mario Esparza T Diagnosis: Lower Gastrointestinal bleeding;Anemia, unspecified;Diverticulosis of large intestine without perforation or abscess with bleeding Presentation: 07/29 10:52 Chief complaint: Patient states: Rectal bleeding started before Kenzie, bright red, jl7 sometimes has clots, denies pain, denies N/V/D. Coronavirus screen: Client denies travel out of the [place] in the last 14 days. At this time, the client does not indicate any symptoms associated with coronavirus-19. Ebola Screen: No symptoms or risks identified at this time. Initial Sepsis Screen: Does the patient meet any 2 criteria? No. Patient's initial sepsis screen is negative. Does the patient have a suspected source of infection? No. Patient's initial sepsis screen is negative. Risk Assessment: Do you want to hurt yourself or someone else? Patient reports no desire to harm self or others. Onset of symptoms was July 03, 2020. Care prior to arrival: None. 10:52 Method Of Arrival: Ambulatory jl7 10:52 Acuity: JESUS 3 jl7 Triage Assessment: 10:55 General: Appears in no apparent distress. uncomfortable, Behavior is calm, cooperative, jl7 appropriate for age. Pain: Denies pain. Derm: Skin is dry, Skin is pale. Historical: - Allergies: 10:55 No Known Allergies; jl7 - Home Meds: 10:55 aspirin 81 mg Oral TbEC twice weekly [Active]; amlodipine 5 mg tab 1 tab once daily jl7 [Active]; atorvastatin 80 mg Oral tab 1 tab once daily [Active]; carvedilol Oral [Active]; meloxicam 15 mg Oral tab 1 tab once daily [Active]; Xarelto 15 mg oral tab daily [Active]; - PMHx: 10:55 CVA; Hyperlipidemia; Hypertension; jl7 - Immunization history:: Adult Immunizations up to date. - Social history:: Smoking status: Patient denies any tobacco usage or history of. - Family history:: not pertinent. - Hospitalizations: : No recent hospitalization is reported. Screenin:00 Abuse screen: Denies threats or abuse. Denies injuries from another. Nutritional ca1 screening: No deficits noted. Tuberculosis screening: No symptoms or risk factors identified. Fall Risk IV access (20 points). Assessment: 11:00 General: Appears in no apparent distress. comfortable, Behavior is calm, cooperative, ca1 appropriate for age. Pain: Denies pain. Neuro: Level of Consciousness is awake, alert, obeys commands, Oriented to person, place, time, situation. Cardiovascular: Heart tones S1 S2 present Capillary refill < 3 seconds Patient's skin is warm and dry. Respiratory: Airway is patent Respiratory effort is even, unlabored, Respiratory pattern is regular, symmetrical, Breath sounds are clear bilaterally. GI: Abdomen is round non-distended, Bowel sounds present X 4 quads. Abd is soft and non tender X 4 quads. Reports bloody stool, since Correll. : No signs and/or symptoms were reported regarding the genitourinary system. EENT: No signs and/or symptoms were reported regarding the EENT system. Derm: Skin is intact, is healthy with good turgor, Skin is dry, Skin is pale, Skin temperature is warm. Musculoskeletal: Circulation, motion, and sensation intact. Capillary refill < 3 seconds. 12:00 Reassessment: Patient appears in no apparent distress at this time. Patient and/or ca1 family updated on plan of care and expected duration. Pain level reassessed. Patient is alert, oriented x 3, equal unlabored respirations, skin warm/dry/pink. 12:55 Reassessment: Patient appears in no apparent distress at this time. Patient and/or ca1 family updated on plan of care and expected duration. Pain level reassessed. Patient is alert, oriented x 3, equal unlabored respirations, skin warm/dry/pink. 13:55 Reassessment: Patient appears in no apparent distress at this time. Patient and/or ca1 family updated on plan of care and expected duration. Pain level reassessed. Patient is alert, oriented x 3, equal unlabored respirations, skin warm/dry/pink. 14:25 Reassessment: Called for report. Nurse requested to call back in 10 minutes. ca1 14:48 Reassessment: Called report to ALIYA Turk. ca1 15:35 Reassessment: Received report from ALIYA Negron. General: Appears in no apparent zb distress. comfortable, Behavior is calm, cooperative, appropriate for age. Pain: Denies pain. Neuro: Level of Consciousness is awake, alert, obeys commands, Oriented to person, place, time, situation. Cardiovascular: Heart tones S1 S2 present Capillary refill < 3 seconds Patient's skin is warm and dry. Respiratory: Airway is patent Respiratory effort is even, unlabored, Respiratory pattern is regular, symmetrical. GI: Abdomen is round distended, Bowel sounds present X 4 quads. Abd is soft and non tender X 4 quads. Reports bloody stool. : No signs and/or symptoms were reported regarding the genitourinary system. EENT: No signs and/or symptoms were reported regarding the EENT system. Derm: Skin is intact, is healthy with good turgor, Skin is dry, Skin is pale, Skin temperature is warm. Musculoskeletal: Circulation, motion, and sensation intact. Capillary refill < 3 seconds, in bilateral fingers. Range of motion: intact in all extremities. 16:30 Reassessment: Patient appears in no apparent distress at this time. Patient and/or zb family updated on plan of care and expected duration. Pain level reassessed. Patient is alert, oriented x 3, equal unlabored respirations, skin warm/dry/pink. no pain at this time. 17:30 Reassessment: Patient appears in no apparent distress at this time. Patient and/or zb family updated on plan of care and expected duration. Pain level reassessed. Patient is alert, oriented x 3, equal unlabored respirations, skin warm/dry/pink. no compliants at this time. 18:30 Reassessment: Patient appears in no apparent distress at this time. Patient and/or zb family updated on plan of care and expected duration. Pain level reassessed. Patient is alert, oriented x 3, equal unlabored respirations, skin warm/dry/pink. no pain at this time. pt awaiting transfer. IV blood continues to infuses. 19:00 Reassessment: Patient appears in no apparent distress at this time. Patient and/or zb family updated on plan of care and expected duration. Pain level reassessed. Patient is alert, oriented x 3, equal unlabored respirations, skin warm/dry/pink. iv blood infusion complete. Vital Signs: 10:52 BP 116 / 51; Pulse 65; Resp 15; Temp 97.6; Pulse Ox 100% ; Weight 77.11 kg; Height 5 jl7 ft. 8 in. (172.72 cm); Pain 0/10; 12:00 BP 121 / 57; Pulse 73; Resp 16 S; Pulse Ox 100% on R/A; ca1 12:50 BP 132 / 51; Pulse 76; Resp 15 S; Pulse Ox 100% on R/A; ca1 13:55 BP 139 / 56; Pulse 74; Resp 16 S; Pulse Ox 100% on R/A; ca1 15:30 BP 117 / 64; Pulse 79; Resp 16; Temp 98.5; Pulse Ox 100% on R/A; zb 16:30 BP 131 / 49; Pulse 70; Resp 16; Pulse Ox 100% on R/A; zb 17:30 BP 153 / 63; Pulse 72; Resp 16; Temp 98.5; Pulse Ox 100% ; zb 18:30 BP 153 / 64; Pulse 78; Resp 16; Pulse Ox 100% on NC; zb 10:52 Body Mass Index 25.85 (77.11 kg, 172.72 cm) jl7 ED Course: 10:42 Patient arrived in ED. ag5 10:42 Mario Esparza MD is Private Physician. ag5 10:54 Triage completed. jl7 10:55 Arm band placed on right wrist. jl7 10:57 Migdalia Aguero, RN is Primary Nurse. ca1 10:59 Mu Mccauley MD is Attending Physician. rn 11:00 Patient has correct armband on for positive identification. Placed in gown. Bed in low ca1 position. Call light in reach. Side rails up X2. Pulse ox on. NIBP on. recycling worker on. Warm blanket given. 11:35 Initial lab(s) drawn, by ED staff, sent to lab. Inserted saline lock: 22 gauge in right ca1 antecubital area, using aseptic technique. ,using aseptic technique. byRadha, spray technician Blood collected. 11:43 Abdomen In Process Unspecified. EDMS 12:21 Initial lab(s) drawn, Repeat lab(s) drawn. by wi, sent to lab. Inserted saline lock: 20 ca1 gauge in left antecubital area, using aseptic technique. Blood collected. 12:26 Consent for blood and/or blood product transfusion explained by physician, signed by ca1 patient. 12:34 initiated [facility]. bd 15:18 Report given to ALIYA Hawk. ca1 15:38 Notified Nurse Practitioner and/or Physician Advertising Photographer of a critical lab result(s), kl Potassium 2.0 Calcium 6.0 Albumin 0.7 notified Migue Page. 19:24 No provider procedures requiring assistance completed. Patient transferred, IV remains zb in place. Administered Medications: No medications were administered Medication: 14:00 Blood products: PRBCs X 1 unit given. See transfusion record. ca1 17:00 Blood products: PRBCs X 2 units given. See transfusion record. zb Outcome: 12:31 ER care complete, transfer ordered by . rn 19:19 Patient left the ED. zb 19:19 Transferred by ground EMS to [facility]. zb 19:19 Condition: stable 19:19 Discharge instructions given to patient, Instructed on the need for transfer, Demonstrated understanding of instructions. Signatures: Dispatcher [employer] EDMS Marlen Boyle Kimberly, RN RN kl Nieto, Roman, MD MD rn Leal, Jahala, RN RN jl7 Migdalia Aguero RN RN ca1 Gaskin, Ajare ag5 Brown, Zipporah, RN RN zb
--- NOTE | 2020-07-29 12:32 | EDPHYS ---
Physician Documentation [facility] Name: Dayron Boggs Age: 80 yrs Sex: Male : 1940 Arrival Date: 07/29/2020 Time: 10:42 Bed 16 Private MD: Mario Esparza T ED Physician Mu Mccauley HPI: 07/29 12:26 This 80 yrs old Male presents to ER via Ambulatory with complaints of Rectal rn Bleeding. 12:26 The patient presents to the emergency department with bleeding from the rectum/anus, rn that is mild. Onset: The symptoms/episode began/occurred 3 week(s) ago. Modifying factors: The symptoms are alleviated by nothing, The symptoms are aggravated by bowel movement. Associate signs and symptoms: Pertinent positives: lower GI bleeding, Pertinent negatives: fever. Associate signs and symptoms: Pertinent negatives: abdominal pain. The patient has experienced similar episodes in the past. Reports has had intermittent bleeding in past but would stop, now for last 3 weeks intermittent bright red and maroon blood. Reports fatigue and generalized weakness. No fever/sob/chest pain.. Historical: - Allergies: 10:55 No Known Allergies; jl7 - Home Meds: 10:55 aspirin 81 mg Oral TbEC twice weekly [Active]; amlodipine 5 mg tab 1 tab once daily jl7 [Active]; atorvastatin 80 mg Oral tab 1 tab once daily [Active]; carvedilol Oral [Active]; meloxicam 15 mg Oral tab 1 tab once daily [Active]; Xarelto 15 mg oral tab daily [Active]; - PMHx: 10:55 CVA; Hyperlipidemia; Hypertension; jl7 - Immunization history:: Adult Immunizations up to date. - Social history:: Smoking status: Patient denies any tobacco usage or history of. - Family history:: not pertinent. - Hospitalizations: : No recent hospitalization is reported. ROS: 12:26 Constitutional: Negative for fever, chills, and weight loss, Eyes: Negative for injury, rn pain, redness, and discharge, Neck: Negative for injury, pain, and swelling, Cardiovascular: Negative for chest pain, palpitations, and edema, Respiratory: Negative for shortness of breath, cough, wheezing, and pleuritic chest pain, Abdomen/GI: Negative for abdominal pain, nausea, vomiting, diarrhea, and constipation, + red and maroon blood Back: Negative for injury and pain, MS/Extremity: Negative for injury and deformity, Skin: Negative for injury, rash, and discoloration, Neuro: Negative for headache, numbness, tingling, and seizure. Exam: 12:26 Constitutional: This is a well developed, well nourished patient who is awake, alert, rn and in no acute distress. Head/Face: Normocephalic, atraumatic. Eyes: Pale conjunctivae Cardiovascular: Regular rate and rhythm. No pulse deficits. Respiratory: No increased work of breathing, no retractions or nasal flaring. Abdomen/GI: soft, non-tender Skin: Pale skin, no cyanosis MS/ Extremity: Pulses equal, no cyanosis. Neurovascular intact. Full, normal range of motion. Equal circumference. Neuro: Awake and alert, GCS 15, oriented to person, place, time, and situation. Cranial nerves II-XII grossly intact. Motor strength 5/5 in all extremities. Sensory grossly intact. Cerebellar exam normal. Normal gait. Vital Signs: 10:52 BP 116 / 51; Pulse 65; Resp 15; Temp 97.6; Pulse Ox 100% ; Weight 77.11 kg; Height 5 jl7 ft. 8 in. (172.72 cm); Pain 0/10; 12:00 BP 121 / 57; Pulse 73; Resp 16 S; Pulse Ox 100% on R/A; ca1 12:50 BP 132 / 51; Pulse 76; Resp 15 S; Pulse Ox 100% on R/A; ca1 13:55 BP 139 / 56; Pulse 74; Resp 16 S; Pulse Ox 100% on R/A; ca1 15:30 BP 117 / 64; Pulse 79; Resp 16; Temp 98.5; Pulse Ox 100% on R/A; zb 16:30 BP 131 / 49; Pulse 70; Resp 16; Pulse Ox 100% on R/A; zb 17:30 BP 153 / 63; Pulse 72; Resp 16; Temp 98.5; Pulse Ox 100% ; zb 18:30 BP 153 / 64; Pulse 78; Resp 16; Pulse Ox 100% on NC; zb 10:52 Body Mass Index 25.85 (77.11 kg, 172.72 cm) 7 MDM: 10:59 Patient medically screened. rn 12:26 Differential diagnosis: hemorrhoids, diverticulosis, internal hemorrhoids, rn diverticulitis. Data reviewed: vital signs, nurses notes, lab test result(s), radiologic studies, CT scan, and as a result, I will discharge patient. Counseling: I had a detailed discussion with the patient and/or guardian regarding: the historical points, exam findings, and any diagnostic results supporting the discharge/admit diagnosis, lab results, radiology results, the need for outpatient follow up, to return to the emergency department if symptoms worsen or persist or if there are any questions or concerns that arise at home. ED course: No GI here, pt with hemoglobin 5.6, will start transfusion here, arranging transfer to [facility] for GI eval. . 07/29 11:05 Order name: Basic Metabolic Panel; Complete Time: 11:59 07/29 11:05 Order name: CBC with Diff; Complete Time: 11:59 07/29 11:05 Order name: Hepatic Function; Complete Time: 11:59 07/29 11:05 Order name: Lipase; Complete Time: 11:59 07/29 11:05 Order name: PT-INR; Complete Time: 12:39 07/29 11:05 Order name: Ptt, Activated; Complete Time: 12:39 07/29 11:05 Order name: Type And Screen 07/29 12:27 Order name: CREATININE WHOLE BLOOD; Complete Time: 12:39 [facility] 07/29 12:27 Order name: CREATININE WHOLE BLOOD [facility] 07/29 12:32 Order name: Packed RBC Leukored [facility] 07/29 12:41 Order name: ABO/RH no charge; Complete Time: 13:07 [facility] 07/29 15:00 Order name: SARS-COV-2 RT PCR [facility] 07/29 11:05 Order name: IV Saline Lock; Complete Time: 11:38 rn 07/29 11:05 Order name: Labs collected and sent; Complete Time: 11:38 07/29 11:43 Order name: Abdomen ; Complete Time: 11:59 [facility] Administered Medications: No medications were administered Disposition: 07/29/20 12:[address] [facility]. Diagnosis are Lower Gastrointestinal bleeding, Anemia, unspecified, Diverticulosis of large intestine without perforation or abscess with bleeding. - Reason for transfer: Higher level of care. - Accepting physician is Dr. Vicente. - Condition is Stable. - Problem is new. - Symptoms are unchanged. Signatures: Dispatcher [employer] ED[facility] Mu Mccauley MD MD rn Leal, Jahala, RN RN jl7 Sandra Carmona RN RN zb Corrections: (The following items were deleted from the chart) 11:43 11:06 Abdomen Pelvis W Con+CT.RAD.BRZ ordered. EDWY EDMS 13:50 12:33 CORONAVIRUS+MR.LAB.BRZ ordered. EDWY EDMS 16:53 12:31 07/29/2020 12:[address] [facility]. rn Diagnosis is Lower Gastrointestinal bleeding; Anemia, unspecified; Diverticulosis of large intestine without perforation or abscess with bleeding. Reason for transfer: Higher level of care. Accepting physician is . Condition is Stable. Problem is new. Symptoms are unchanged. rn 19:19 16:53 07/29/2020 12:[address] [facility]. zb Diagnosis is Lower Gastrointestinal bleeding; Anemia, unspecified; Diverticulosis of large intestine without perforation or abscess with bleeding. Reason for transfer: Higher level of care. Accepting physician is Dr. Vicente. Condition is Stable. Problem is new. Symptoms are unchanged. rn
[2020-07-29] MEDS ORDERED: NA CHLORIDE 0.9% 250 ML ONE ×2 (13:56→17:06)
[2020-07-29 19:27] VITALS: O2SAT 100
[2020-07-29 19:32] VITALS: BP 117/64; TEMP 98.5
== END 2020-07-29 19:19 | disposition short-term general hospital (02) ==
LOC: ER 10:39
PROC: 30233N1 Transfusion of Nonautologous Red Blood Cells into Peripheral Vein, Percutaneous Approach (ICD-10-PCS; principal; 2020-07-29)
DX: D64.9 Anemia, unspecified (principal); K57.30 Diverticulosis of large intestine without perforation or abscess without bleeding; Z20.822 Contact with and (suspected) exposure to COVID-19; I10 Essential (primary) hypertension; E78.5 Hyperlipidemia, unspecified; Z79.01 Long term (current) use of anticoagulants; Z79.82 Long term (current) use of aspirin; Z86.73 Personal history of transient ischemic attack (TIA), and cerebral infarction without residual deficits
CPT/HCPCS: 85025; 80048; 36415; 86900; 86850; 85610; 82565; 86901; 80076; 85730; 83690; 74176; 36430; 99285; U0003; P9016 ×2; J7050 ×2

== ENCOUNTER 2020-08-06 08:58 | Day surgery (SDC) | payer OTHER ==
[2020-08-05 15:51] LABS: Absolute Lymphocytes (CBC) 1.1 K/uL (0.7-4.9); Basophils % 0.6 % (0-1.3); Hematocrit 25.4 % (39.6-49.0); Lymphocytes % 14.2 % (15.3-44.8); MPV 8.6 fL (7.6-11.3); RBC Red Blood Cell Count 2.92 M/uL (4.33-5.43)
[2020-08-05 16:02] LABS: Potassium 4.3 mmol/L (3.5-5.1)
--- NOTE | 2020-08-05 16:19 | RAD REPORT ---
EXAM DESCRIPTION: RAD - Chest Pa And Lat (2 Views) - 08/05/2020 3:47 pm CLINICAL HISTORY: PRE-OP Chest pain. COMPARISON: Abdomen 1 View (KUB) dated 07/29/2019; Abdomen 1 View (KUB) dated 06/26/2019; Chest Pa An d Lat (2 Views) dated 06/11/2019; Abdomen 1 View (KUB) dated 06/05/2019 FINDINGS: The lungs are clear. The heart is normal in size. Tortuous thoracic aorta is seen. IMPRESSION: No acute or concerning finding suspected.
--- OUTSIDE RECORDS SUMMARY | 2020-08-06 09:17 | XMS REPORT | Clinical Summary ---
:1940 Author Organization [facility] Address [address] [place] [address] Care Team Providers Name Role Phone Unavailable Primary Care Provider Unavailable Allergies Active Allergy Reactions Severity Noted Date Comments Codeine Nausea Only 07/29/2020 Medications Medication Sig Dispensed Refills Start End Date Status Date gabapentin Take 300 mg by 0 Acti ve (NEURONTIN) 300 MG mouth 2 (two) capsuleIndications: times daily. neuropathic pain lansoprazole Take 30 mg by 0 Act juan r (PREVACID) 30 MG mouth daily. capsule zinc gluconate 50 Take 50 mg by 0 Active mg tablet mouth daily. allopurinoL Take 300 mg by 0 Act juan r (ZYLOPRIM) 300 MG mouth daily. tablet atorvastatin Take 80 mg by 0 Act juan r (LIPITOR) 80 MG mouth daily. tablet carvediloL (COREG) Take 12.5 mg 0 Active 12.5 MG tablet by mouth 2 (two) times daily with breakfast and dinner. montelukast Take 10 mg by 0 Acti ve (SINGULAIR) 10 mg mouth nightly. tablet rivaroxaban Take by mouth 0 Acti ve (XARELTO) 15 mg Tab daily with tablet dinner. ascorbic acid, Take 1 tablet 270 tablet 0 10/31/19 Active vitamin C, (VITAMIN (250 mg total) 1 21 C) 250 MG tablet by mouth 3 (three) times daily for 90 days. ferrous sulfate 325 Take 1 tablet 270 tablet 0 10/30 Active (65 FE) MG tablet (325 mg total) 1 21 by mouth 3 (three) times daily for [address] rectally 30 g 1 08/21/19 Active (ANUSOL-HC) 2.5 % 2 (two) times 1 21 rectal cream daily for 20 days. acetaminophen Take 650 mg by 0 08/01/19 D iscontinued (TYLENOL) 650 MG CR mouth every 8 21 (Stop Taking at tablet (eight) hours Discha rge) as needed for Pain. triamterene-hydroCH Take 1 capsule 0 08/01 Discontinued LOROthiazide by mouth every 21 (S top Taking at (DYAZIDE) 37.5-25 morning. Di scharge) mg per capsule aspirin 81 MG EC Take 81 mg by 0 08/01/19 Discontinued tablet mouth daily. 21 (Stop T aking at Discharge) candesartan Take 32 mg by 0 08/01/19 Disc ontinued (ATACAND) 32 MG mouth daily. 21 ( Stop Taking at tablet Discharge) Active Problems Problem Noted Date Gastrointestinal hemorrhage associated with anorectal source 07/29/2020 GIB (gastrointestinal bleeding) 07/29/2020 Essential hypertension 08/27/2017 Ischemic stroke 08/26/2017 Tissue plasminogen activator (t-PA) administered at ot her facility within 08/26/2017 24 hours prior to current admission Encounters Date Type Specialty Care Team Description 07/31/2020 Anesthesia Event Gastroenterology Elroy Ramirez MD Zemrau, Ludwig, MANAGING JEWELER 07/31/2020 Surgery Gastroenterology Andrey, DYLAN Terry MD 07/29/2020 - Hospital Encounter Cardiology Gadicherla, Gastroint estinal hemorrhage associated with anorectal source; 08/01/2020 Alexandra Essential hyper tension; Muralinath, Hematochezia; Lower GI bleeding Sudarshan Lew MD Henderson, Edith Ifeoma, MD 07/29/2020 Travel after 08/06/2019 Immunizations Name Administration Dates Next Due Pneumococcal Polysaccharide (Pneumovax) 08/28/2017 Social History Tobacco Use Types Packs/Day Years Used Date Never Smoker Smokeless Tobacco: Never Used Alcohol Use Drinks/Week oz/Week Comments No Sex Assigned at Date Recorded Not on file COVID-19 Exposure Response Date Recorded In the last month, have you been in contact with No / Unsure 07/29/2020 10:06 PM SENIOR PRODUCT MANAGER someone who was confirmed or suspected to have Coronavirus / COVID-19? Last Filed Vital Signs Vital Sign Reading Time Taken Comments Blood Pressure 107/53 08/01/2020 12:00 PM SENIOR PRODUCT MANAGER Pulse 66 08/01/2020 12:00 PM SENIOR PRODUCT MANAGER Temperature 36.7 C (98 F) 08/01/2020 12:00 PM SENIOR PRODUCT MANAGER Respiratory Rate 17 08/01/2020 12:00 PM SENIOR PRODUCT MANAGER Oxygen Saturation 97% 08/01/2020 12:00 PM SENIOR PRODUCT MANAGER Inhaled Oxygen Concentration - - Weight 79.6 kg (175 lb 8 oz) 07/29/2020 9:00 PM SENIOR PRODUCT MANAGER Height 172.7 cm (5' 8") 07/29/2020 9:00 PM SENIOR PRODUCT MANAGER Body Mass Index 26.68 07/29/2020 9:00 PM SENIOR PRODUCT MANAGER Plan of Treatment Health Maintenance Due Date Last Done Comments MEDICARE ANNUAL WELLNESS (YEAR 2 or FIRST YEAR if no 07/18/2018 IPPE) INFLUENZA VACCINE (#1) 2020 DEPRESSION SCREENING (12+) 07/17/2020 PNEUMOCOCCAL 65+ YRS Completed 08/28/2017 Procedures Procedure Name Priority Date/Time Associated Diagnosis Comme nts PREPARE STAT 08/01/2020 11:54 Results for this LEUKO-REDUCED RBC PM SENIOR PRODUCT MANAGER procedure are in the results section. HEMOGLOBIN AND STAT 08/01/2020 5:56 Results f or this HEMATOCRIT AM SENIOR PRODUCT MANAGER procedure are i n the results section. HEMOGLOBIN AND STAT 08/01/2020 1:04 Results f or this HEMATOCRIT AM SENIOR PRODUCT MANAGER procedure are i n the results section. FERRITIN Routine 07/31/2020 7:36 Results for this PM SENIOR PRODUCT MANAGER procedure are i n the results section. IRON, TIBC, % SAT. Routine 07/31/2020 7:36 Resul ts for this (WITHOUT FERRITIN) PM SENIOR PRODUCT MANAGER procedure are in the results section. HEMOGLOBIN AND STAT 07/31/2020 7:36 Results f or this HEMATOCRIT PM SENIOR PRODUCT MANAGER procedure are i n the results section. REPORT OF PROCEDURE 07/31/2020 5:06 - ENDOSCOPY URL PM SENIOR PRODUCT MANAGER COLONOSCOPY 07/31/2020 4:15 Gastrointestinal PM SENIOR PRODUCT MANAGER hemorrhage, unspecified gastrointestinal hemorrhage type HEMOGLOBIN AND STAT 07/31/2020 1:40 Results f or this HEMATOCRIT PM SENIOR PRODUCT MANAGER procedure are i n the results section. TRANSFUSE STAT 07/31/2020 1:34 LEUKO-REDUCED RED PM SENIOR PRODUCT MANAGER BLOOD CELLS PROTHROMBIN TIME/INR LIEN 07/31/2020 8:18 Res ults for this AM SENIOR PRODUCT MANAGER procedure are i n the results section. HEMOGLOBIN AND STAT 07/31/2020 5:57 Results f or this HEMATOCRIT AM SENIOR PRODUCT MANAGER procedure are i n the results section. HEMOGLOBIN AND STAT 07/31/2020 12:49 Results f or this HEMATOCRIT AM SENIOR PRODUCT MANAGER procedure are i n the results section. HEMOGLOBIN AND STAT 07/30/2020 6:13 Results f or this HEMATOCRIT PM SENIOR PRODUCT MANAGER procedure are i n the results section. HEMOGLOBIN AND STAT 07/30/2020 12:18 Results f or this HEMATOCRIT PM SENIOR PRODUCT MANAGER procedure are i n the results section. SARS-COV2/RT-PCR Routine 07/30/2020 1:40 Results for this ([facility]) AM SENIOR PRODUCT MANAGER procedure are in the results section. CBC W/PLT COUNT & STAT 07/30/2020 1:22 Result s for this AUTO DIFFERENTIAL AM SENIOR PRODUCT MANAGER procedure are in the results section. TYPE AND SCREEN, STAT 07/30/2020 1:22 Results for this AUTOMATED AM SENIOR PRODUCT MANAGER procedure are i n the results section. MAGNESIUM Routine 07/30/2020 1:22 Results for this AM SENIOR PRODUCT MANAGER procedure are i n the results section. PROTHROMBIN TIME/INR STAT 07/30/2020 1:22 Res ults for this AM SENIOR PRODUCT MANAGER procedure are i n the results section. BASIC METABOLIC STAT 07/30/2020 1:22 Results for this PANEL (7) AM SENIOR PRODUCT MANAGER procedure are i n the results section. HEPATIC FUNCTION STAT 07/30/2020 1:22 Results for this PANEL AM SENIOR PRODUCT MANAGER procedure are i n the results section. CBC W/PLT COUNT & STAT 07/30/2020 1:22 Result s for this AUTO DIFFERENTIAL AM SENIOR PRODUCT MANAGER procedure are in the results section. after 08/06/2019 Results Prepare Leuko-Red RBC (08/01/2020 11:54 PM SENIOR PRODUCT MANAGER) Pathologist [facility] CROSSMATCH COMPATIBLE [place]AFET[place] Unit ABO B Pos SAFETRACE [place] UNIT NUMBER [id number] [place] Status TX_TIMEINCHART [place] Blood Bank Product RED BLOOD CELLS [place] PRODUCT CODE [id number] [place] Specimen Other Performing Organization Address City/State/Zipcode Phone Number [place] Hemoglobin and hematocrit (08/01/2020 5:56 AM SENIOR PRODUCT MANAGER)Only the most recent of8 resultswithin the time period is included. Pathologist [facility] Hemoglobin 7.4 (L) 13.7 - 17.5 GM/DL [facility] Hematocrit 23.9 (L) 40.1 - 51.0 % [facility] Specimen Blood Narrative Performed At Confidential Secretary ID - [id number] [facility] Performing Organization Address [facility] Phone Number [facility] [address] [place] [address] CENTER Iron, TIBC, % sat. (without ferritin) (07/31/2020 7:36 PM SENIOR PRODUCT MANAGER) Pathologist Sig nature Iron 15.0 (L) 40.0 - 160.0 [facility] ug/dL [facility] TIBC 394 250 - 450 ug/dL [facility] Iron % Saturation 4 (L) 20 - 55 % [facility] Specimen Blood Narrative Performed At Confidential Secretary ID - DB [facility] Performing Organization Address [facility] Phone Number [facility] [address] [place] [address] CENTER Ferritin (07/31/2020 7:36 PM SENIOR PRODUCT MANAGER) Pathologist Sig [facility] Ferritin 10.95 5.00 - 275.00 ng/mL [facility] Specimen Blood Narrative Performed At Confidential Secretary ID - DB [facility] Performing Organization Address [facility] Phone Number [address] [address] CENTER REPORT OF PROCEDURE - ENDOSCOPY URL (07/31/2020 5:06 PM SENIOR PRODUCT MANAGER) Narrative Performed At This result has an attachment that is no t available. Transfuse Leuko-Red RBC (07/31/2020 1:34 PM SENIOR PRODUCT MANAGER)Prothrombin time/INR (07/31/2020 8:18 AM SENIOR PRODUCT MANAGER)Only the most recent of2 resultswithin the time period is included. Pathologist Sig nature Protime 16.1 (H) 11.9 - 14.2 seconds [facility] INR 1.33 <=5.90 [facility] Specimen Blood Narrative Performed At Effective 12/12/2018: PT Reference Range [facility] Change New: 11.9-14.2 Previous: 11.7-14.7 RECOMMENDED COUMADIN/WARFARIN INR THERAPY RANGES STANDARD DOSE: 2.0-3.0 Includes: PROPHYLAXIS for venous thrombosis, systemic embolization; TREATMENT for venous thrombosis and/or pulmonary embolus. HIGH RISK: Target INR is 2.5-3.5 for patients wiht mechanical heart valves. Performing Organization Address City/State/Zipcode Phone Number [facility] [address] [place] [address] CENTER SARS-CoV2/RT-PCR (Asymptomatic ONLY) (07/30/2020 1:40 AM SENIOR PRODUCT MANAGER) SARS-COV2/RT-PCR Negative Not Detected, [facility] Negative, See [facility] external report CENTER for linked test SARS-COV-2 [facility] JIN [facility] PERFORMING LAB [facility] Specimen Other - Nasopharyngeal wall structure (b kathy structure) Narrative Performed At Negative result for this test determines that [facility] SARS-CoV-2 RNA was not present in the specimen above the Limit of Detection (LOD). However, Negative results do not preclude SARS-CoV-2 infection and should not be used as the sole basis for treatment or patient management decisions. Negative results must be combined with clinical observations, patient history, and epidemiological information. A false negative result may occur if a specimen is improperly collected, transported or handled. A false negative result should be considered if patient's recent exposures or clinical presentation indicate that COVID-19 (SARS-CoV-2) is likely and diagnostic tests for other causes of illness are negative. Re-testing should be considered in cases of suspected false negatives. The limit of detection for this assay is 800 copies/mL. This SARS CoV-2 test is a real-time RT-PCR test intended for the qualitative detection of nucleic acid from SARS-CoV-2 in a nasopharyngeal swab specimen collected from individuals suspected of COVID-19 by their healthcare provider. This test has not been Food and Drug Administration (FDA) cleared or approved. This is a modified version of an approved Emergency Use Authorization (EUA) and is in the process of review by the FDA. Once authorized by the FDA, the issued EUA will be effective until the declaration that circumstances exist justifying the authorization of the emergency use of in vitro diagnostic tests for detection and/or diagnosis of COVID-19 is terminated under Section 564(b)(2) of the Act or the EUA is revoked under Section 564(g) of the Act. Fact Sheet for Healthcare Providers: https://www.[employer]/sites/default/files/pro duct/documents/Fact_Sheet_HC_Providers_Lyra_SA RS-CoV-2.pdf Fact Sheet for Healthcare Patients: https://www.[employer]/sites/default/files/pro duct/documents/Fact_Sheet_Patients_Lyra_SARS-C oV-2.pdf Performing Laboratory: [address] [place] [address] Performing Organization Address [facility] Unit[facility] [place] [address] CENTER Type and screen, automated (07/30/2020 1:22 AM SENIOR PRODUCT MANAGER) Pathologist Sig nature ABO/RH AUTOMATED B POSITIVE [facility] Ab Scrn NEGATIVE [facility] Specimen Blood Performing Organization Address [facility] Phone Number [address] [address] CBC with platelet count + automated diff (07/30/2020 1:22 AM SENIOR PRODUCT MANAGER) Pathologist Sig nature WBC 8.1 3.5 - 10.5 [facility] K/L [facility] RBC 2.58 (L) 4.63 - 6.08 [facility] M/L [facility] Hemoglobin 7.1 (L) 13.7 - 17.5 [facility] GM/DL [facility] Hematocrit 23.1 (L) 40.1 - 51.0 % [facility] MCV 89.5 79.0 - 92.2 fL [facility] MCH 27.5 25.7 - 32.2 pg [facility] MCHC 30.7 (L) 32.3 - 36.5 [facility] GM/DL [facility] RDW 14.3 11.6 - 14.4 % [facility] Platelets 150 150 - 450 K/CU [facility] MM [facility] MPV 9.9 9.4 - 12.4 fL [facility] nRBC 0 0 - 0 /100 WBC [facility] % Neutros 66 % [facility] % Lymphs 18 % [facility] % Monos 10 % [facility] % Eos 5 % [facility] % Baso 1 % [facility] # Neutros 5.29 1.78 - 5.38 [facility] # Lymphs 1.47 1.32 - 3.57 [facility] # Monos 0.81 0.30 - 0.82 [facility] # Eos 0.37 0.04 - 0.54 [facility] # Baso 0.04 0.01 - 0.08 [facility] Immature 1 0 - 1 % [facility] Granulocytes-Relative [facility] Specimen Blood Performing Organization Address City/State/Zipcode Phone Number [facility] [address] [place] [address] CENTER Magnesium (07/30/2020 1:22 AM SENIOR PRODUCT MANAGER) Pathologist Sig nature Magnesium 2.3 1.6 - 2.6 mg/dL [facility] Specimen Blood Narrative Performed At Confidential Secretary ID - PIAYA L [facility] MED ICAL CENTER Performing Organization Address City/[facility]/Zipcode Phone Number [facility] [address] [place] [address] [place] Hepatic function panel (07/30/2020 1:22 AM SENIOR PRODUCT MANAGER) Pathologist Sig nature Protein, Total 5.6 (L) 6.0 - 8.3 gm/dL [facility] Albumin 3.4 (L) 3.5 - 5.0 g/dL [facility] Total Bilirubin 0.5 0.2 - 1.2 mg/dL [facility] Bilirubin, Direct 0.2 0.1 - 0.5 mg/dL [facility] Alkaline Phosphatase 105 40 - 150 U/L [facility] AST 16 5 - 34 U/L [facility] ALT 16 6 - 55 U/L [facility] Specimen Blood Narrative Performed At Confidential Secretary ID - PIAYA L [facility] Performing Organization Address City/[facility]/Zipcode Phone Number [facility] [address] [place] [address] [place] Basic metabolic panel (07/30/2020 1:22 AM SENIOR PRODUCT MANAGER) Sodium 138 136 - 145 meq/L [facility] Potassium 4.7 3.5 - 5.1 meq/L [facility] Chloride 108 (H) 98 - 107 meq/L [facility] CO2 21 (L) 22 - 29 meq/L [facility] BUN 15 7 - 21 mg/dL [facility] Creatinine 1.09 0.57 - 1.25 [facility] mg/dL [facility] Glucose 102 70 - 105 mg/dL [facility] Calcium 8.2 (L) 8.4 - 10.2 [facility] mg/dL [facility] EGFR 65Comment: ESTIMATED mL/min/1.73 sq [facility] GFR IS NOT m [facility] ACCURATE CENTER CREATININE CLEARANCE IN PREDICTING GLOMERULAR FILTRATION RATE. ESTIMATED GFR IS NOT APPLICABLE FOR DIALYSIS PATIENTS. Specimen Blood Narrative Performed At Confidential Secretary ID - PIAYA L [facility] ICAL CENTER Performing Organization Address City/State/Zipcode Phone Number [facility] [address] [place] [address] CENTER after 08/06/2019 Insurance Payer Benefit Plan Subscriber ID Effective Phone Address Typ e / Group Dates [id number] 2017-Pres [phone] [address] [employer] MEDICARE MGD MEDICARE HMO ent [id number] [place] [id number] Advance Directives For more information, please contact: [phone] Code Status Date Activated Date Inactivated Comments Full Code 07/29/2020 11:23 PM 08/01/2020 8:11 PM This code status was determined by: Patient Full Code 08/26/2017 2:23 PM 08/30/2017 4:32 PM This code status was determined by: Patient
--- OUTSIDE RECORDS SUMMARY | 2020-08-06 09:19 | XMS REPORT | Continuity of Care Document ---
:1940 Author Organization [facility] t Address [address] [place] [address] Care Team Providers Name Role Phone Yarely Harp MD Attending Clinician [phone] Vipin CARSON Attending Clinician Won Aguilera MD Attending Clinician Perla Ramirez MD Attending Clinician Jay BRITT Attending Clinician Andrey CARSON Attending Clinician YARELY HARP Attending Clinician Unavailable Jessica CARSON Attending Clinician Vito CARSON Attending Clinician 2, Lab Attending Clinician Unavailable Annetta Henry MD Attending Clinician [phone] DONALD TELLEZ Attending Clinician Unavail able WON AGUILERA Admitting Clinician Unavailable DONALD TELLEZ Admitting Clinician Unavail able Payers Payer Name Policy Type Policy Effective Date Expiration Date Sour ce Number AETNA - MEDICARE [id number] 2017 ELKIN Anthony MGD CAREAETNA 00:00:00 - Medical MEDICARE HMO Center [id number], [place] [address]Tlxb Contracted Problems Condition Condition Condition Status Onset Resolution Last Treating Co mments Source Name Details Category Date Date Treatment Clinician Date GIB GIB Disease Active [facility] ([facility]astro[facility] (gastroint -13 Adriana kes - estinal estinal 00:00: Medical bleeding) bleeding) 00 Cent er Essential Essential Disease Active [facility] hypertensi hypertensi 2-11 Adriana kes - on on 00:00: Medical 00 [place] 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[facility] stroke stroke 2-10 [facility] - 00:[facility]: Medical 00 [place] 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 2-10 Adriana kes - n n 00:00: Medical activator activator 00 Cent er (t-PA) (t-PA) administer administer ed at ed at other other facility facility within 24 within 24 hours hours prior to prior to current current admission admission Allergies, Adverse Reactions, Alerts Allergy Allergy Status Severity Reaction(s) Onset Inactive Treating Comm ents Source Name Type Date Date Clinician Codewilian Propensi Active Nausea Only [facility] 07-29 [facility] - adverse 00:00: Medical reaction 00 Center s Social History Social Habit Start Date Stop Date Quantity Comments Source Sex Assigned At [facility] Exposure to Not sure [facility] SARS-CoV2 [facility] (event) Tobacco use and 2020-07-31 2020-07-31 Never used [facility] - exposure 00:00:00 00:00:[address] [facility] Alcohol intake 2020-07-31 2020-07-31 Current [facility] es - 00:00:00 00:00:00 non-drinker of Medical Ce nter alcohol (finding) Smoking Status Start Date Stop Date Source Never smoker [facility] Medications Ordered Filled Start Stop Current Ordering Indication Dosage Frequency Signature Comments Components Source Medication Medication Date Date Medication? Clinician (SIG) Name Name gabapentin Yes neuropathic 300mg Q.5D Take [address] [facility] [address] (NEURONTIN) 1-16 pain mg by [facility] - 300 MG 18:10: mouth 2 Medical capsule 59 (two) Center times daily. lansoprazol Yes 30mg QD Take [address] [facility] e 1-16 by mouth [facility] - (PREVACID) 18:10: daily. Medic al 30 MG 59 Center capsule zinc Yes 50mg QD Take [address] gluconate 1-16 by mouth [facility] - 50 mg 18:10: daily. Medical tablet 59 Center allopurinoL Yes 300mg QD Take [address] (ZYLOPRIM) 1-16 mg by [facility] - 300 MG 18:10: mouth Medical tablet 59 daily. [place] atorvastati Yes 80mg QD Take [address] n (LIPITOR) 1-16 by mouth Luke s - 80 MG 18:10: daily. Medical tablet 59 Center carvediloL Yes 12.5mg Take 12.[address] [facility] [address] (COREG) 1-16 mg by [facility] - 12.5 MG 18:10: mouth 2 Medical tablet 59 (two) Center times daily with breakfast and dinner. montelukast Yes 10mg QD Take [address] [facility] (SINGULAIR) -16 by mouth Luke s - 10 mg 18:10: nightly. Medical tablet 59 Center rivaroxaban Yes Take by [facility] (XARELTO) -16 mouth [facility] - 15 mg Tab 18:10: daily with Me dical tablet 59 dinner. [place] acetaminoph 2020- No 650mg Take [address] en 08-01-16 mg by [facility] - (TYLENOL) 15:51: 00:00 mouth Medica l 650 MG CR 55 :00 every 8 Center tablet (eight) hours as needed for Pain. triamterene 2020- No 1{capsu QD Take [address] [facility] [address] -hydroCHLOR 08-01 le} capsule by L ukes - Othiazide 15:51: 00:00 mouth Medica l (DYAZIDE) 55 :00 every Center 37.5-25 mg morning. per capsule aspirin 81 2020- No 81mg QD Take [address] MG EC 08-01 by mouth [facility] - tablet 15:51: 00:00 daily. Medical 55 :00 [place] candesartan 2020- No 32mg QD Take [address] (ATACAND) 08-01 by mouth [facility] - 32 MG 15:51: 00:00 daily. Medical tablet 55 :00 [place] ascorbic 2020- Yes 250mg Q.[id number] Take [address] acid, 08-01 [id number] tablet [facility] - vitamin C, 00:00: 23:59 3D (250 mg Med ical (VITAMIN C) 00 :00 total) by [facility] ter 250 MG mouth 3 tablet (three) times daily for 90 days. ferrous 2020- Yes 325mg Q.[id number] Take [address] sulfate 325 08-01 [id number] tablet [facility] - (65 FE) MG 00:00: 23:59 3D (325 mg Med ical tablet 00 :00 total) by Center mouth 3 (three) times daily for 90 days. hydrocortis 2020- Yes Q.5D Place [facility] one 08-01 rectally 2 [facility] - (ANUSOL-HC) 00:00: 23:59 (two) Medi beth 2.5 % 00 :00 times Center rectal daily for cream 20 days. Immunizations Ordered Immunization Filled Immunization Date Status Commen ts Source Name Name Pneumococcal 2017-08-28 Completed [facility] - Polysaccharide 00:00:00 Medical Ce ntluis angel (Pneumovax) Vital Signs Vital Name Observation Time Observation Value Comments Source Systolic blood 2020-08-01 12:00:00 107 mm[Hg] [facility] pressure [facility] Diastolic blood 2020-08-01 12:00:00 53 mm[Hg] [facility] S t [facility] Heart rate 2020-08-01 12:00:00 66 /min [facility] Body temperature 2020-08-01 12:00:00 36.67 Tonia [facility] Respiratory rate 2020-08-01 12:00:00 17 /min [facility] Oxygen saturation in 2020-08-01 12:00:00 97 /min [facility] Arterial blood by Medical Ce nter Pulse oximetry Body height 2020-07-29 21:00:00 172.7 cm [facility] Body weight 2020-07-29 21:00:00 79.606 kg [facility] BMI 2020-07-29 21:00:00 26.68 kg/m2 [facility] Procedures Procedure Date / Time Performed Performing Clinician Sourc e PREPARE LEUKO-REDUCED 2020-08-01 23:54:00 Critical access hospital RBC [facility] HEMOGLOBIN AND 2020-08-01 05:56:00 Critical access hospital HEMATOCRIT [facility] HEMOGLOBIN AND 2020-08-01 01:04:00 [facility] HEMOGLOBIN AND 2020-07-31 19:36:00 [facility] IRON, TIBC, % SAT. 2020-07-31 19:36:00 [facility] (WITHOUT FERRITIN) [facility] r FERRITIN 2020-07-31 19:36:[address] [facility] REPORT OF PROCEDURE - 2020-07-31 17:06:58 Harrison Balderas [facility] ENDOSCOPY [facility] COLONOSCOPY 2020-07-31 16:15:00 Andrey Harrison [facility] HEMOGLOBIN AND 2020-07-31 13:40:00 [facility] TRANSFUSE LEUKO-REDUCED 2020-07-31 13:34:29 Critical access hospital RED BLOOD CELLS [facility] PROTHROMBIN TIME/INR 2020-07-31 08:18:00 Bo Jaya [facility] HEMOGLOBIN AND 2020-07-31 05:57:00 [facility] HEMOGLOBIN AND 2020-07-31 00:49:00 [facility] HEMOGLOBIN AND 2020-07-30 18:13:00 [facility] HEMOGLOBIN AND 2020-07-30 12:18:00 [facility] SARS-COV2/RT-PCR ([facility] & 2020-07-30 01:40:00 Jadyn Aguilera [facility] - REF LABS) [facility] HEPATIC FUNCTION PANEL 2020-07-30 01:22:00 Jadyn Aguilera [facility] BASIC METABOLIC PANEL 2020-07-30 01:22:00 [facility] PROTHROMBIN TIME/INR 2020-07-30 01:22:00 Jadny Aguilera [facility] MAGNESIUM 2020-07-30 01:22:00 [facility] TYPE AND SCREEN, 2020-07-30 01:22:00 Jadyn Aguilera [facility] - AUTOMATED [facility] CBC W/PLT COUNT & AUTO 2020-07-30 01:22:00 Jadyn Aguilera [facility] - DIFFERENTIAL [facility] Plan of Care Planned Activity Planned Date Details Comments Source Future Scheduled 2020-07-[address] [facility] - Test 00:00:00 (12+) [code = [facility] DEPRESSION SCREENING (12+)] Future Scheduled 2020-03-[address] [facility] - Test 00:00:00 (#1) [code = [facility] INFLUENZA VACCINE (#1)] Future Scheduled 2018-07-[address] [facility] - Test 00:00:00 WELLNESS (YEAR 2 or Medical Center FIRST YEAR if no IPPE) [code = MEDICARE ANNUAL WELLNESS (YEAR 2 or FIRST YEAR if no IPPE)] Encounters Start End Encounter Admission Attending Care Care Encounter Source Date/Time Date/Time Type Type Clinicians Facility Department ID 2020-06-19 2020-06-19 [facility] Candy Lopeze [id number] 08:00:00 23:59:00 Encounter Camposgrant Floresy [id number] [facility] [id number] [id number] 2020-06-08 2020-06-08 Telephone Vito CTDALIA [id number] 00:00:00 00:00:00 Martha Gaitan [id number] [place] 4.2.7.2.686 Guero [id number] nal 059 [facility] 2020-05-20 2020-05-20 [facility] Tressa Lopez [id number] 09:30:00 23:59:00 Encounter Campos Diaz [id number] [facility] [id number] [id number] 2020-05-13 2020-05-13 [place] Operator 2, Adc Lab [facility] [id number] 09:07:05 09:37:05 Visit Arnie [id number] [place] 4.2.7.2.686 Profrachana [id number] nal 353 [facility] 2020-05-12 2020-05-12 Office Vito, [facility] [id number] 13:35:21 14:08:55 Visit Martha Gaitan [id number] [place] 4.2.7.2.686 Guero [id number] nal 059 [facility] 2019 2019 Office Elizalde [facility] [id number] 12:38:12 13:55:51 Visit Everardo, AMBULATOR 350.1.13.21 Karla Y 0.2.7.2.686 Annetta [id number] Results Test Description Test Time Test Comments Results Result Comments Source Prepare Leuko-Red RBC 2020-08-01 23:54:00 Test Item Value Reference Range Interpretation Comme nts CROSSMATCH (test code = 2264) COMPATIBLE Unit ABO (test code = 1670839) B Pos UNIT NUMBER (test code = 934-0) [id number] Status (test code = 0541182) [place]_TIMEINCHART Blood Bank Product (test code = 2263) RED BLOOD CELLS PRODUCT CODE (test code = 933-2) [id number] [facility] and [id number] 06:19:00 Test Item Value Reference Range Interpretation Comments Hemoglobin (test code = 7.4 13.7- 17.5 GM/DL L 786-4) Hematocrit (test code = 23.9 % 40.1-51 L 4544-3) PRAKASH (test code = PRAKASH) Momd Teacher ID - [id number] Lab Interpretation (test Abnormal code = 53257-6) [facility] Center[facility]MO[facility] AND [id number] 06:19:00 Test Item Value Reference Range Interpretation Comments HEMOGLOBIN (BEAKER) (test code = 7.4 GM/DL 13.7-17.5 L 410) HEMATOCRIT (BEAKER) (test code = 23.9 % 40.1-51.0 L 411) Momd Teacher ID - [id number] AND [id number] 01:13:00 Test Item Value Reference Range Interpretation Comments HEMOGLOBIN (BEAKER) (test code = 7.6 GM/DL 13.7-17.5 L 410) HEMATOCRIT (BEAKER) (test code = 24.1 % 40.1-51.0 L 411) Momd Teacher ID - [id number] 20:26:00 Test Item Value Reference Range Interpretation Comments Ferritin (test code = 10.95 ng/mL 5-275 2276-4) PRAKASH (test code = PRAKASH) Momd Teacher ID - DB Lab Interpretation (test Normal code = 98492-5) [facility] Center[facility]ERR[facility]IN2021-01-15 20:26:00 Test Item Value Reference Range Interpretation Comments FERRITIN (BEAKER) (test code = 10.95 ng/mL 5.00-275.00 361) Momd Teacher ID - DBIron, TIBC, % sat. (without ferritin)2020-07-31 20:07:00 Test Item Value Reference Range Interpretation Comments Iron (test code = 2498-4) 15.0 ug/dL 40-160 L TIBC (test code = 2500-7) 394 ug/dL 250-450 Iron % Saturation (test code 4 % 20-55 L = 2502-3) PRAKASH (test code = PRAKASH) Momd Teacher ID - DB Lab Interpretation (test Abnormal code = 26832-4) [facility] Center[facility], TIBC, % SAT. (WITHOUT FERRITIN)2020-07-31 20:07:00 Test Item Value Reference Range Interpretation Comments IRON (BEAKER) (test code = 547) 15.0 ug/dL 40.0-160.0 L TOTAL IRON BINDING CAPACITY 394 ug/dL 250-450 (BEAKER) (test code = 769) IRON % SATURATION (2) (BEAKER) 4 % 20-55 L (test code = 2590) Momd Teacher ID - DBHEMOGLOBIN AND [id number] 19:45:00 Test Item Value Reference Range Interpretation Comments HEMOGLOBIN (BEAKER) (test code = 8.5 GM/DL 13.7-17.5 L 410) HEMATOCRIT (BEAKER) (test code = 27.6 % 40.1-51.0 L 411) Momd Teacher ID - [id number] AND [id number] 13:48:00 Test Item Value Reference Range Interpretation Comments HEMOGLOBIN (BEAKER) (test code = 7.7 GM/DL 13.7-17.5 L 410) HEMATOCRIT (BEAKER) (test code = 24.1 % 40.1-51.0 L 411) Momd Teacher ID - [id number] time/[id number] 08:40:00 Test Item Value Reference Range Interpretation Comments Protime (test code = 16.1 11.9- 14.2 H 5902-2) seconds INR (test code = 1.33 <=5.90 6301-6) PRAKASH (test code = PRAKASH) Effective 12/12/2018: PT Reference Range ChangeNew: 11.9-14.2 Previous: 11.7-14.7 RECOMMENDED COUMADIN/WARFARIN INR THERAPY RANGESSTANDARD DOSE: 2.0-3.0 Includes: PROPHYLAXIS for venous thrombosis, systemic embolization; TREATMENT for venous thrombosis and/or pulmonary embolus.HIGH RISK: Target INR is 2.5-3.5 for patients wiht mechanical heart valves. Lab Interpretation Abnormal (test code = 32312-3) [facility] CenterPROTHROMBIN TIME/[id number] 08:40:00 Test Item Value Reference Range Interpretation Comments PROTIME (BEAKER) (test code = 16.1 seconds 11.9-14.2 H 759) INR (BEAKER) (test code = 370) 1.33 <=5.90 Effective 12/12/2018: PT Reference Range ChangeNew: 11.9-14.2 Previous: 11.7- 14.7RECOMMENDED COUMADIN/WARFARIN INR THERAPY RANGESSTANDARD DOSE: 2.0-3.0 Includes: PROPHYLAXIS for venous thrombosis, systemic embolization; TREATMENT for venous thrombosis and/or pulmonary embolus.HIGH RISK: Target INR is2.5-3.5 for patients wiht mechanical heart valves.HEMOGLOBIN AND [id number] 06:41:00 Test Item Value Reference Range Interpretation Comments HEMOGLOBIN (BEAKER) (test code = 6.9 GM/DL 13.7-17.5 L 410) HEMATOCRIT (BEAKER) (test code = 21.5 % 40.1-51.0 L 411) Momd Teacher ID - [id number] AND [id number] 01:09:00 Test Item Value Reference Range Interpretation Comments HEMOGLOBIN (BEAKER) (test code = 7.0 GM/DL 13.7-17.5 L 410) HEMATOCRIT (BEAKER) (test code = 23.2 % 40.1-51.0 L 411) Momd Teacher ID - [id number] AND [id number] 18:24:00 Test Item Value Reference Range Interpretation Comments HEMOGLOBIN (BEAKER) (test code = 7.3 GM/DL 13.7-17.5 L 410) HEMATOCRIT (BEAKER) (test code = 23.5 % 40.1-51.0 L 411) Momd Teacher ID - [id number] AND [id number] 12:35:00 Test Item Value Reference Range Interpretation Comments HEMOGLOBIN (BEAKER) (test code = 7.2 GM/DL 13.7-17.5 L 410) HEMATOCRIT (BEAKER) (test code = 22.6 % 40.1-51.0 L 411) Momd Teacher ID - [id number]-CoV2/RT-PCR (Asymptomatic ONLY)2020-07-30 11:23:00 Test Item Value Reference Range Interpretation Comments SARS-COV2/RT-PCR Negative Not Detected, (test code = Negative, See 02826-9) external report for linked test SARS-COV-2 [facility] PERFORMING LAB (test code = 89281-0) PRAKASH (test code = Negative result for this PRAKASH) test determines that SARS-CoV-2 RNA was not present in the [...] of the Act. Fact Sheet for Healthcare Providers:https://www.Rec[employer]/sites/default/f jen/product/documents/F act_Sheet_HC_Providers_L mbe_TZUR-WaW-9.pdf Fact Sheet for Healthcare Patients:https://www.[employer]/sites/default/fi les/product/documents/Fa ct_Sheet_Patients_Lyra_S ARS-CoV-2.pdf Performing Laboratory:[place] [address] [address]ARS-COV2/RT-PCR ([facility] & REF LABS)2020-07-30 11:23:00 Test Item Value Reference Range Interpretation Comments SARS-COV2/RT-PCR (test Negative Not Detected, Negative, code = 9347666) See external report for linked test SARS-COV-2 PERFORMING LAB [facility] (test code = 0979762) Negative result for this test determines that SARS-CoV-2 RNA was not present in the specimen above the Limit of Detection (LOD). However, Negative results do not preclude SARS-CoV-2 infection and should not be used as the sole basis for treatment or patient management decisions. Negative results mustbe combined with clinical observations, patient history, and epidemiological information. A false negative result may occur if a specimen is improperly collected, transported or handled. A false negative result should be considered if patient's recent exposures or clinical presentation indicate that COVID-19 (SARS-CoV-2) is likely and diagnostic tests for other causes of illness are negative. Re-testing should be considered in cases of suspected false negatives.The limit of detection for this assay is 800 copies/mL.This SARS CoV-2 test is a real-time RT-PCR test intended for the qualitative detection of nucleic acid from SARS-CoV-2 in a nasopharyngeal swab specimen collected from individuals susp ected of COVID-19 by their healthcare provider.This test has not been Food and Drug [...] is revoked under Section 564(g) of the Act.Fact Sheet for Healthcare Providers:https://www.[employer]/sites/default/files/product/documents/Fact_Shee q_RU_Iwepxdqlz_Mxhw_HVVF-RxC-6.pdfFact Sheet for Healthcare Patients:https://www.[employer]/sites/default/files/product/ documents/Vzmx_Mepjq_Apcrukdb_Vxhf_PFQM-PvY-3.pdfPerforming Laboratory:[facility], [place] [address]Eotdw metabolic panel 2020-07-30 02:12:00 Test Item Value Reference Range Interpretation Comments Sodium (test code = 138 meq/L 476-229 0230-2) Potassium (test code = 4.7 meq/L 3.5-5.1 2823-3) Chloride (test code = 108 meq/L 98-107 H 2074-0) CO2 (test code = 21 meq/L 22-29 L 2027-9) BUN (test code = 15 mg/dL 7-21 3094-0) Creatinine (test code 1.09 mg/dL 0.57-1.25 = 2160-0) Glucose (test code = 102 mg/dL 70-105 2345-7) Calcium (test code = 8.2 mg/dL 8.4-10.2 L 15386-4) EGFR (test code = 65 mL/min/1.73 [place] [address]-6) NOT ACCURATE CREATININE CLEARANCE IN PREDICTING GLOMERULAR FILTRATION RATE . ESTIMATED GFR I S NOT APPLICABLE FOR DIALYSIS PATIENTS. PRAKASH (test code = PRAKASH) Momd Teacher ID - PIAYA L Lab Interpretation Abnormal (test code = 57510-0) [facility] CenterHepatic function [id number] 02:12:00 Test Item Value Reference Range Interpretation Comments Protein, Total (test code 5.6 6.0- 8.3 gm/dL L = 2885-2) Albumin (test code = 3.4 g/dL 3.5-5 L 64992-8) Total Bilirubin (test code 0.5 mg/dL 0.2-1.2 = 1974-2) Bilirubin, Direct (test 0.2 mg/dL 0.1-0.5 code = 1967-7) Alkaline Phosphatase (test 105 U/L 40-150 code = 6768-6) AST (test code = 1920-8) 16 U/L 5-34 ALT (test code = 1742-6) 16 U/L 6-55 PRAKASH (test code = PRAKASH) Momd Teacher ID - PIAYA L Lab Interpretation (test Abnormal code = 05640-0) [facility] CenterMagnesium2021-01-14 02:12:00 Test Item Value Reference Range Interpretation Comments Magnesium (test code = 2.3 mg/dL 1.6-2.6 54138-4) PRAKASH (test code = PRAKASH) Momd Teacher ID - PIAYA L Lab Interpretation (test Normal code = 38982-6) [facility] CenterBASIC METABOLIC [id number] 02:12:00 Test Item Value Reference Range Interpretation Comments SODIUM (BEAKER) 138 meq/L 136-145 (test code = 381) POTASSIUM (BEAKER) 4.7 meq/L 3.5-5.1 (test code = 379) CHLORIDE (BEAKER) 108 meq/L 98-107 H (test code = 382) CO2 (BEAKER) (test 21 meq/L 22-29 L code = 355) BLOOD UREA NITROGEN 15 mg/dL 7-21 (BEAKER) (test code = 354) CREATININE (BEAKER) 1.09 mg/dL 0.57-1.25 (test code = 358) GLUCOSE RANDOM 102 mg/dL 70-105 (BEAKER) (test code = 652) CALCIUM (BEAKER) 8.2 mg/dL 8.4-10.2 L (test code = 697) EGFR (BEAKER) (test 65 mL/min/1.73 ESTIMA LIZ GFR IS code = 1092) sq m NOT ACCURATE CREATININE CLEARANCE IN PREDICTING GLOMERULAR FILTRATION RATE . ESTIMATED GFR I S NOT APPLICABLE FOR DIALYSIS PATIEN TS. Momd Teacher ID - PITRU [id number] 02:12:00 Test Item Value Reference Range Interpretation Comments MAGNESIUM (BEAKER) (test code = 2.3 mg/dL 1.6-2.6 627) Momd Teacher ID - ENID LHEPATIC FUNCTION [id number] 02:12:00 Test Item Value Reference Range Interpretation Comments TOTAL PROTEIN (BEAKER) (test code = 5.6 gm/dL 6.0-8.3 L 770) ALBUMIN (BEAKER) (test code = 1145) 3.4 g/dL 3.5-5.0 L BILIRUBIN TOTAL (BEAKER) (test code 0.5 mg/dL 0.2-1.2 = 377) BILIRUBIN DIRECT (BEAKER) (test 0.2 mg/dL 0.1-0.5 code = 706) ALKALINE PHOSPHATASE (BEAKER) (test 105 U/L 40-150 code = 346) AST (SGOT) (BEAKER) (test code = 16 U/L 5-34 353) ALT (SGPT) (BEAKER) (test code = 16 U/L 6-55 347) Momd Teacher ID - ENID LType and screen, [id number] 02:10:00 Test Item Value Reference Range Interpretation Comments ABO/RH AUTOMATED (BEAKER) (test B POSITIVE code = 2260) Ab Scrn (test code = 890-4) NEGATIVE [facility]/[id number] 01:46:00 Test Item Value Reference Range Interpretation Comments PROTIME (BEAKER) (test code = 20.6 seconds 11.9-14.2 H 759) INR (BEAKER) (test code = 370) 1.82 <=5.90 Effective 12/12/2018: PT Reference Range ChangeNew: 11.9-14.2 Previous: 11.7- 14.7RECOMMENDED COUMADIN/WARFARIN INR THERAPY RANGESSTANDARD DOSE: 2.0-3.0 Includes: PROPHYLAXIS for venous thrombosis, systemic embolization; TREATMENT for venous thrombosis and/or pulmonary embolus.HIGH RISK: Target INR is2.5-3.5 for patients wiht mechanical heart valves.CBC with platelet count + automated [id number] 01:32:00 Test Item Value Reference Range Interpretation Comments WBC (test code = 6690-2) 8.1 3.5- 10.5 K/L RBC (test code = 789-8) 2.58 4.63- 6.08 M/L L MCHC (test code = 786-4) 30.7 32.3- 36.5 GM/DL L Hematocrit (test code = 4544-3) 23.1 % 40.1-51 L MCV (test code = 787-2) 89.5 fL 79-92.2 MCH (test code = 785-6) 27.5 pg 25.7-32.2 RDW (test code = 788-0) 14.3 % 11.6-14.4 Platelets (test code = 777-3) 150 150- 450 K/CU MM MPV (test code = 52528-2) 9.9 fL 9.4-12.4 nRBC (test code = 413) 0 0- 0 /100 WBC % Neutros (test code = 429) 66 % % Lymphs (test code = 430) 18 % % Monos (test code = 431) 10 % % Eos (test code = 432) 5 % % Baso (test code = 437) 1 % # Neutros (test code = 670) 5.29 1.78- 5.38 K/L # Lymphs (test code = 414) 1.47 1.32- 3.57 K/L # Monos (test code = 415) 0.81 0.30- 0.82 K/L # Eos (test code = 416) 0.37 0.04- 0.54 K/L # Baso (test code = 417) 0.04 0.01- 0.08 K/L Immature Granulocytes-Relative 1 % 0-1 (test code = 2801) Lab Interpretation (test code = Abnormal 07612-7) [facility] W/PLT COUNT & AUTO [id number] 01:32:00 Test Item Value Reference Range Interpretation Comments WHITE BLOOD CELL COUNT (BEAKER) 8.1 K/ L 3.5-10.5 (test code = 775) RED BLOOD CELL COUNT (BEAKER) 2.58 M/ L 4.63-6.08 L (test code = 761) HEMOGLOBIN (BEAKER) (test code = 7.1 GM/DL 13.7-17.5 L 410) HEMATOCRIT (BEAKER) (test code = 23.1 % 40.1-51.0 L 411) MEAN CORPUSCULAR VOLUME (BEAKER) 89.5 fL 79.0-92.2 (test code = 753) MEAN CORPUSCULAR HEMOGLOBIN 27.5 pg 25.7-32.2 (BEAKER) (test code = 751) MEAN CORPUSCULAR HEMOGLOBIN CONC 30.7 GM/DL 32.3-36.5 L (BEAKER) (test code = 752) RED CELL DISTRIBUTION WIDTH 14.3 % 11.6-14.4 (BEAKER) (test code = 412) PLATELET COUNT (BEAKER) (test 150 K/CU MM 150-450 code = 756) MEAN PLATELET VOLUME (BEAKER) 9.9 fL 9.4-12.4 (test code = 754) NUCLEATED RED BLOOD CELLS 0 /100 WBC 0-0 (BEAKER) (test code = 413) NEUTROPHILS RELATIVE PERCENT 66 % (BEAKER) (test code = 429) LYMPHOCYTES RELATIVE PERCENT 18 % (BEAKER) (test code = 430) MONOCYTES RELATIVE PERCENT 10 % (BEAKER) (test code = 431) EOSINOPHILS RELATIVE PERCENT 5 % (BEAKER) (test code = 432) BASOPHILS RELATIVE PERCENT 1 % (BEAKER) (test code = 437) NEUTROPHILS ABSOLUTE COUNT 5.29 K/ L 1.78-5.38 (BEAKER) (test code = 670) LYMPHOCYTES ABSOLUTE COUNT 1.47 K/ L 1.32-3.57 (BEAKER) (test code = 414) MONOCYTES ABSOLUTE COUNT (BEAKER) 0.81 K/ L 0.30-0.82 (test code = 415) EOSINOPHILS ABSOLUTE COUNT 0.37 K/ L 0.04-0.54 (BEAKER) (test code = 416) BASOPHILS ABSOLUTE COUNT (BEAKER) 0.04 K/ L 0.01-0.08 (test code = 417) IMMATURE GRANULOCYTES-RELATIVE 1 % 0-1 PERCENT (BEAKER) (test code = 2801) BASIC METABOLIC [id number] 05:44:00 Test Item Value Reference Range Interpretation Comments SODIUM (BEAKER) 140 meq/L 136-145 (test code = 381) POTASSIUM (BEAKER) 3.4 meq/L 3.5-5.1 L (test code = 379) CHLORIDE (BEAKER) 110 meq/L 98-107 H (test code = 382) CO2 (BEAKER) (test 22 meq/L 22-29 code = 355) BLOOD UREA NITROGEN 19 mg/dL 7-21 (BEAKER) (test code = 354) CREATININE (BEAKER) 0.97 mg/dL 0.57-1.25 (test code = 358) GLUCOSE RANDOM 102 mg/dL 70-105 (BEAKER) (test code = 652) CALCIUM (BEAKER) 8.9 mg/dL 8.4-10.2 (test code = 697) EGFR (BEAKER) (test 75 mL/min/1.73 ESTIMA LIZ GFR IS code = 1092) sq m NOT ACCURATE CREATININE CLEARANCE IN PREDICTING GLOMERULAR FILTRATION RATE . ESTIMATED GFR I S NOT APPLICABLE FOR DIALYSIS PATIEN TS. CBC W/PLT COUNT & AUTO [id number] 05:03:00 Test Item Value Reference Range Interpretation [...] PERCENT (BEAKER) (test code = 2801) POCT-GLUCOSE [id number] 16:47:00 Test Item Value Reference Range Interpretation Comments POC-GLUCOSE METER 125 mg/dL 70-110 H TESTED AT [place] [address] ([facility]) (test code = DONY Patel [facility] 1538) [address] POCT-GLUCOSE [id number] 11:42:00 Test Item Value Reference Range Interpretation Comments POC-GLUCOSE METER 93 mg/dL 70-110 TESTED AT [place] [address] ([facility]) (test code = DONY Patel [facility] [address] 1538) POCT-GLUCOSE [id number] 08:02:00 Test Item Value Reference Range Interpretation Comments POC-GLUCOSE METER 89 mg/dL 70-110 TESTED AT [place] [address] ([facility]) (test code = [place] [address] 1538) BASIC METABOLIC [id number] 06:12:00 Test Item Value Reference Range Interpretation [...] PATIEN TS. CBC W/PLT COUNT & AUTO [id number] 05:12:00 Test Item Value Reference Range Interpretation [...] % 0-1 PERCENT (BEAKER) (test code = 2981) POCT-GLUCOSE [id number] 21:19:00 Test Item Value Reference Range Interpretation Comments POC-GLUCOSE METER 106 mg/dL 70-110 TESTED AT [facility] 6720 (BEAKER) (test code = [place] 1538) [address] BASIC METABOLIC [id number] 04:05:00 Test Item Value Reference Range Interpretation [...] PATIEN TS. CBC W/PLT COUNT & AUTO [id number] 03:49:00 Test Item Value Reference Range Interpretation [...] code = 2801) MR, MRA, BRAIN, WITHOUT [id number] 14:29:00Reason for exam:- >StrokeWhat is the patient's sedation requirement?->No SedationIs the patientclaustrophobic?->NoFINAL REPORT MRA brain and neck without contrast 08/27/2017 2:28 PM CLINICAL HISTORY: StrokeIschemic stroke COMPARISON: None available TECHNIQUE: Two- and three-dimensional gwhy-gs-kwhibv MRA images of the intra- and extracranial arterial vasculature was performed, from which maximal intensity projection 3-D reconstructions were created. FINDINGS: MRA neck: There is no vessel occlusion or flow-limiting stenosis. There is no NASCET-quantifiable cervical internal carotid artery stenosis. Flow is antegrade in both vertebral arteries. MRA [place]: There is no vessel occlusion, flow-limiting stenosis, or aneurysm. IMPRESSION: Negative intra- and extracranial MRAs. Signed: [facility] Verified Date/Time: 08/27/2017 14:29:54 Reading Location: [facility] C0[facility] Neuro Reading Room , MRA, NECK, WITHOUT IV [id number] 14:29:00FINAL REPORT MRA brain and neck without contrast 08/27/2017 2:28 PM CLINICAL HISTORY: StrokeIschemic stroke COMPARISON: None available TECHNIQUE: Two- and three- dimensional swhm-eu-wojdzp MRA images of the intra- and extracranial arterial vasculature was performed, from which maximal intensity projection 3-D reconstructions were created. FINDINGS: MRA neck: There is no vessel occlusion or flow-limiting stenosis. There is no NASCET-quantifiable cervical internal carotid artery stenosis. Flow is antegrade in both vertebral arteries. MRA [place]: There is no vessel occlusion, flow-limiting stenosis, or aneurysm. IMPRESSION: Negative intra- and extracranial MRAs. Signed: Blaise Lemus Verified Date/Time: 08/27/2017 14:29:54 Reading Location: [address] Neuro Reading Room MR, BRAIN, WITHOUT [id number] 14:08:00Reason for exam:->StrokeWhat is the patient's sedation [...] subarachnoid hemorrhage.3.Mild chronic microvascular ischemia. Signed: Blaise Lemus Verified Date/Time: 08/27/2017 14:08:46 Reading Location: [address] Neuro Reading Room BASIC METABOLIC [id number] 06:09:00 Test Item Value Reference Range Interpretation [...] NOT APPLICABLE FOR DIALYSIS PATIEN TS. FastingLIPID [id number] 06:09:00 Test Item Value Reference Range Interpretation [...] High >=190 FastingCBC W/PLT COUNT & AUTO [id number] 05:41:00 Test Item Value Reference Range Interpretation [...] 0-1 PERCENT (BEAKER) (test code = 2801) [facility] [id number] 01:47:00 Test Item Value Reference Range Interpretation [...] and persistent tachyarrhythmia.RAD, CHEST, 1 VIEW, NON [id number] 19:14:00Reason for exam:->Admission CXR; cvaShould this be performed at the bedside?->YesFINAL REPORT INDICATION: Admission CXR; cva COMPARISON: None TECHNIQUE: Single frontal view of the chest. FINDINGS: Lungs and pleura: Clear lungs. No effusion.Heart and mediastinum: Normal heart size. Unremarkable mediastinal contours.Osseous structures: No acute abnormality.Other: None. IMPRESSION: No acute intrathoracic abnormality. Signed: JR Gomez Robert MDReport Verified Date/Time: 08/26/2017 19:14:38 Reading Location: [address] Reading Room Nandini ctronically signed by: LUCY GOMEZ on 08/26/2017 07:14 PMFIBRINOGEN 2017-08-26 18:43:00 Test Item Value Reference Range Interpretation Comments FIBRINOGEN LEVEL (BEAKER) (test 268 mg/dl 225-434 code = 658) [id number] 18:43:00 Test Item Value Reference Range Interpretation Comments PARTIAL THROMBOPLASTIN TIME 27.9 seconds 22.5-36.0 (BEAKER) (test code = 760) PROTHROMBIN [id number] 18:42:00 Test Item Value Reference Range Interpretation Comments PROTIME (BEAKER) (test code = 13.8 seconds 11.7-14.7 759) INR (BEAKER) (test code = 370) 1.1 <=5.9 RECOMMENDED COUMADIN/WARFARIN INR THERAPY RANGESSTANDARD DOSE: 2.0 - 3.0 Includes: PROPHYLAXIS forvenous thrombosis, systemic embolization; TREATMENT for venous thrombosis and/or pulmonary embolus.HIGH RISK: Target INR is 2.5-3.5 for patients with mechanical heart valves.HEMOGLOBIN [id number] 17:54:00 Test Item Value Reference Range Interpretation Comments HEMOGLOBIN A1C (WEST) (test code = 5.5 % 4.3-6.1 368) VITAMIN B12 AND [id number] 17:45:00 Test Item Value Reference Range Interpretation Comments VITAMIN B12 (BEAKER) (test code = 1294 pg/mL 213-816 H 774) FOLATE (BEAKER) (test code = 362) > ng/mL >=7.0 CT, BRAIN, WITHOUT [id number] 17:32:00FINAL REPORT CT, BRAIN, WITHOUT CONTRAST INDICATION: [...] MDReport Verified Date/Time: 08/26/2017 17:32:46 Reading Location: [address] Reading Room TSH/FREE T4 IF [id number] 16:47:00 Test Item Value Reference Range Interpretation Comments THYROID STIMULATING HORMONE 0.60 uIU/mL 0.35-4.94 (BEAKER) (test code = 772) CREATINE KINASE (CK), TOTAL AND [id number] 16:17:00 Test Item Value Reference Range Interpretation Comments CREATINE KINASE TOTAL (BEAKER) 121 U/L 29-200 (test code = 380) CREATINE KINASE-MB (BEAKER) (test 1.5 ng/mL 0.0-6.6 code = 750) CREATINE KINASE-MB INDEX (BEAKER) 1.2 % (test code = 395) CK-MB Reference Range:<6.7 Normal6.7-10.0 Borderline>10.0 AbnormalTROPONIN [id number] 16:17:00 Test Item Value Reference Range Interpretation [...] acute neurological disease, and persistent tachyarrhythmia.HEPATIC FUNCTION [id number] 16:11:00 Test Item Value Reference Range Interpretation [...] = 21 U/L 6-55 347) BASIC METABOLIC [id number] 16:11:00 Test Item Value Reference Range Interpretation [...] PATIEN TS. CBC W/PLT COUNT & AUTO [id number] 15:57:00 Test Item Value Reference Range Interpretation [...] % 0-1 PERCENT (BEAKER) (test code = 4634)
--- OUTSIDE RECORDS SUMMARY | 2020-08-06 09:19 | XMS REPORT | Summary of Care ---
:1940 Author Organization [facility] Address [address] [place] [address] Care Team Providers Name Role Phone Vilma Mario Ronaldo Primary Care Provider Encounter Details Date Type Department Care Team Description 06/19/2020 Hospital Encounter [facility] Heart Isabella Lopez MD [address] [facility] [place] [address] Center EP Device Alcira, Remote Device Check At Home - Clinic [facility] [address] [facility] [address] [place] [address] Allergies No Known Allergiesdocumented as of this encounter (statuses as of 07/31/2020) Medications Medication Sig Dispensed Refills Start Date End Date Status lansoprazole Take 30 mg by mouth 0 Active (PREVACID) 30 mg daily. capsule Fish Oil-Ovid-3 Take 1 capsule by 0 Active Fatty [...] mouth daily. atrial fibrillation Indications: atrial fibrillation carvediloL 12.5 mg Take 1 tablet by 180 tablet 1 06/08/2020 Active tabletIndications: mouth 2 (two) times PAF (paroxysmal daily with meals. atrial fibrillation) documented as of this encounter (statuses as of 07/31/2020) Active Problems Not on filedocumented as of this encounter (statuses as of 07/31/2020) Social History Tobacco Use Types Packs/Day Years [...] Office Visit Cardiology Martha Padron M D [address] [place] [address] 15 [phone] Health Maintenance Due Date Last Done Comments DTaP,Tdap,and Td Vaccines (1 - Tdap) 1960 Zoster Recombinant Vaccine (SHINGRIX) (1 of 2) 1991 Medicare Wellness Visit 2006 PNEUMOCOCCAL VACCINES 65+ (1 of 1 - PPSV23) 2006 INFLUENZA VACCINE (#1) 2020 Depression Screening 05/12/2021 05/12/2020 documented as of this encounter Implants Implanted Type 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 Plastic Device Shelf Model / Serial Identifier Expiration / Lot Date Lens LENS Estuardo 10/15/2019 [id number] / Implanted: Qty: 1 on 12/24/2015 by Janes Claros MD at [facility] 3 [id number] / [id number] Acrysof Iq Toric LENS Right: Estuardo 07/16/2019 SN [id number] / Implanted: Qty: 1 on 01/07/2016 by Janes Claros MD at [facility] Eye 1 [id number] [facility] / [id number] documented as of this encounter Results Not on filedocumented in this encounter Insurance Payer Benefit Plan Subscriber ID Effective Phone Address Typ e / Group Dates AETNA - AETNA [id number] 2015-[id number] [address] Medic are Adv MANAGED MEDICARE ADV [place] [id number] [place] [address] documented as of this encounter
[2020-08-06] MEDS ORDERED: Ringers Lactate 1,000 ML IV ONE (09:30)
[2020-08-06] MEDS ORDERED: CEFAZOLIN/SWI 1gm 1 GM/10 ML SYR ONE (09:30)
[2020-08-06] MEDS ORDERED: FENTANYL CITR 100 MCG/2 ML ONE (10:19)
[2020-08-06] MEDS ORDERED: propofoL 200 MG/20 ML VIAL IV ONE (10:19)
[2020-08-06] MEDS ORDERED: dexAMETHasone 10 MG/ML VIAL ONE (10:19)
[2020-08-06] MEDS ORDERED: KETAMINE HCL 500 MG/5 ML VIAL ONE (10:19)
[2020-08-06] MEDS ORDERED: ONDANSETRON 4 MG/2 ML VIAL ONE (10:19)
[2020-08-06] MEDS ORDERED: LIDOCAINE 2% MPF 5 ML VIAL ONE (10:20)
[2020-08-06] MEDS ORDERED: SUCCINYLCHOLINE 20 MG/ML (10 ML) IV ONE (11:53)
[2020-08-06] MEDS ORDERED: KETOROLAC 30 MG/ML INJ ONE (12:55)
--- NOTE | 2020-08-06 13:22 | OP ---
Date of Procedure: 08/06/2020 Surgeon: Jacinto Garcia MD Preoperative Diagnosis: Bleeding and thrombosed complex hemorrhoids. Postoperative Diagnosis: Bleeding and thrombosed complex hemorrhoids. Procedures: Exam under anesthesia, rigid proctoscopy, and complex hemorrhoidectomy x4. Estimated Blood Loss: Minimal. Specimen: Thrombosed and bleeding hemorrhoids x4. Finding: As above with both internal and external components. Anesthesia: General. Complications: None. Disposition: The patient tolerated the procedure in stable condition, taken to Recovery in good gene ral condition. Operative Note: The patient was brought to the OR and placed in supine position. General anesthesia begun. The patient was prepped and draped in the usual sterile fashion in the lithotomy position. Exam under anesthesia revealed thrombosed and bleeding points on the external hemorrhoids. Proctosco py was performed to approximately 15 cm and there were clots in the anal canal, but there was no blee ding seen beyond the hemorrhoids. No bleeding points were and visualized. Subsequently, complex hem orrhoids consisting of external and internal components with thrombosis as well as bleeding points we re identified, 4 of them, 1 in the left posterior, 1 in the left lateral, 1 in the right posterior an d 1 in the right lateral and all of these were excised with the Harmonic Scalpel. Bleeding was contr olled with cautery and then anal canal was filled with Gelfoam, Surgicel and Vaseline gauze. Marcain e 0.5% was infiltrated locally for postop pain control and then sterile dressing was applied. The pa tient was awakened, taken to Recovery in good general condition. Discharge Note: The patient will go to Day Surgery and home when stable. Disposition: Home. Condition: Stable. Discharge Instructions: Resume home medications and diet. Activity as tolerated. No heavy lifting. Sitz bath q.i.d. High-fiber diet. Metamucil 1 tablespoons p.o. t.i.d., Colace 100 mg p.o. b.i.d., Tylenol No.3 one tablet p.o. q.4 p.r.n. pain. The patient already has a cream for the hemorrhoids a nd needs to use as directed and follow up in my office in a week. Call for appointment. GIO/JAKE Voice ID: [id number] Report ID: [id number]
[2020-08-06] MEDS ORDERED: HYDROCODONE/APAP 7.5/325 MG TAB ONE (14:14)
[2020-08-06 14:26] VITALS: TEMP 97.2
[2020-08-06 14:49] VITALS: BP 162/68; O2SAT 96
--- NOTE | 2020-08-06 16:59 | RAD REPORT ---
EXAM DESCRIPTION: CT - Head Brain Wo Cont - 08/06/2020 4:33 pm CLINICAL HISTORY: DIZZINESS, DOUBLE VISION Headache, drowsiness, headache COMPARISON: Head angio dated 08/26/2017; Ct Stroke Brain Wo Cont dated 08/26/2017 TECHNIQUE: All CT scans are performed using dose optimization technique as appropriate and may inclu de automated exposure control or mA/KV adjustment according to patient size. FINDINGS: No intracranial hemorrhage, hydrocephalus or extra-axial fluid collection.Mild generalized brain atrophy is present with mild periventricular and deep white matter chronic microvascular ische kathleen changes.No areas of brain edema or evidence of midline shift. 6 mm area of gliosis right perivent ricular region. The paranasal sinuses and mastoids are clear. The calvarium is intact. IMPRESSION: No acute intracranial abnormality. If there is continued clinical concern for CVA, MR imaging of the brain would be recommended.
[2020-08-06 17:28] LABS: Absolute Lymphocytes (CBC) 0.5 K/uL (0.7-4.9); Basophils % 0.2 % (0-1.3); Hematocrit 25.1 % (39.6-49.0); Lymphocytes % 8.2 % (15.3-44.8); MPV 8.8 fL (7.6-11.3); RBC Red Blood Cell Count 2.87 M/uL (4.33-5.43)
[2020-08-06 17:42] LABS: Potassium 4.1 mmol/L (3.5-5.1)
--- NOTE | 2020-08-06 17:54 | P.CNS ---
Date of Consult: 08/06/20 Reason for Consult: dizziness, diplopia Requesting Physician: Jacinto Garcia Primary Care Provider: Unknown Chief Complaint: Dizziness, diplopia History of Present Illness: 80-year-old male status post complex hemorrhoidectomy. Postop early patient had diplopia and dizziness. Diplopia was transient. Surgery suspected this was related to anesthesia. Surgery requested evaluation by me to determine further. Notes reviewed in detail. Patient with history of prior CVA in the past. Patient with atrial fibrillation on chronic anti coagulation therapy. Anti coagulation therapy has been held in preparation for surgery. Patient improved Allergies No Known Allergies Allergy (Verified 03/09/19 20:51) Home medications list reviewed: Yes Home Medications: Ascorbic Acid [Vitamin C] 1,000 mg PO DAILY 03/10/19 Aspirin [Aspirin EC 81 MG] 81 mg PO DAILY 03/10/19 Atorvastatin Calcium [Lipitor] 80 mg PO BEDTIME 03/10/19 Candesartan Cilexetil 32 mg PO BID 03/10/19 Fexofenadine HCl [Allergy Relief] 180 mg PO DAILY 03/10/19 Lansoprazole 30 mg PO DAILY 03/10/19 Magnesium Citrate 125 mg PO DAILY 03/10/19 Montelukast Sodium 10 mg PO DAILY 03/10/19 [place]-3/Dha/Epa/Fish Oil [Fish Oil 1,200 mg Softgel] 1 cap PO DAILY 03/10/19 Zinc 1 tab PO DAILY 03/10/19 carvediloL [Coreg*] 12.5 mg PO BID 03/10/19 Bacillus Coagulans [Probiotic] 1 each PO BID #30 tab.chew 03/11/19 Allopurinol 300 mg PO DAILY 08/05/20 Rivaroxaban [Xarelto] 15 mg PO DAILY 08/05/20 Triamterene/Hydrochlorothiazid [Dyazide 37.5-25 Capsule] 1 each PO DAILY 08/05/20 - Past Medical/Surgical History Diabetic: No -: cva 2018 -: htypertension -: high colesterol -: right heel Psychosocial/ Personal History: Patient - Family History Mother Medical History: Heart disease - Social History Smoking Status: Never smoker Alcohol use: No CD- Drugs: No Caffeine use: Yes Place of Residence: Home Review of Systems General: As per HPI Eyes: Unremarkable ENT: As per HPI Respiratory: Unremarkable Cardiovascular: Unremarkable Gastrointestinal: Unremarkable Genitourinary: Unremarkable Musculoskeletal: Unremarkable Integumentary: Unremarkable Neurological: As per HPI Lymphatics: Unremarkable Physical Examination Temp Pulse Resp BP Pulse Ox 97.2 F 70 16 162/68 H 08/06/20 13:34 08/06/20 14:45 08/06/20 14:45 08/06/20 14:45 General: Alert, In no apparent distress, Oriented x3, Cooperative HEENT: Atraumatic, Normocephalic Neck: Supple Respiratory: Clear to auscultation bilaterally, Normal air movement Cardiovascular: Normal pulses, Regular rate/rhythm Gastrointestinal: Normal bowel sounds, Soft and benign, Non-distended Musculoskeletal: No erythema, No tenderness, No warmth Integumentary: No tenderness/swelling, No erythema, No warmth, No cyanosis Neurological: Normal speech, Normal strength at 5/5 x4 extr, Normal tone, Cranial nerves 3-12 intact, Normal affect Laboratory Data (last 24 hrs) 08/06/20 17:11: Sodium 142, Potassium 4.1, BUN 15, Creatinine 1.22, Glucose 130 H 08/06/20 17:11: WBC 6.1 D, Hgb 8.0 L, Hct 25.1 L, Plt Count 141 L Conclusions/Impression: Impression: Transient diplopia, dizziness likely from anesthesia Status post complex hemorrhoidectomy Atrial fibrillation on chronic anti coagulation therapy Anemia of chronic disease History CVA Plan: Patient was evaluated. Symptoms have resolved. Stat CT without contrast unremarkable. H&H stable. Case discussed with Neurology. Symptoms has resolved. Patient ambulating well. This was likely transient related to anesthesia. Patient desires to go home. Case discussed with surgery. Surgery agrees with plan of care. Patient to be discharged home. Time Spent Managing Pts care (In Minutes): 55
[2020-08-06 20:27] LABS: Anisocytosis 1+; Blood Morphology Comment NOTED (NOT SEEN); Hypochromasia 2+; Platelet Estimate ADEQ; Poikilocytosis 1+
== END 2020-08-06 18:00 | disposition home health service (06) ==
LOC: OR 08:58
PROVIDERS: ATTEND Surgery
PROC: 06BY4ZC Excision of Hemorrhoidal Plexus, Percutaneous Endoscopic Approach (ICD-10-PCS; principal; 2020-08-06 10:30)
DX: K64.5 Perianal venous thrombosis (principal); K64.8 Other hemorrhoids; R42 Dizziness and giddiness; H53.2 Diplopia; Z20.822 Contact with and (suspected) exposure to COVID-19
CPT/HCPCS: 85025 ×2; 80048 ×2; 36415 ×2; 86900; 86850; 86901; 88304; 70450; 71046; 46260; U0002; J2704; J0330; J3010; J1100; J0690; J7120; J2405

== ENCOUNTER 2021-05-06 07:42 | Day surgery (SDC) | payer OTHER ==
--- NOTE | 2021-05-05 09:45 | RAD REPORT ---
EXAM DESCRIPTION: Vent[place] Jung And Shelbie (2 Views)05/05/2021 9:17 am CLINICAL HISTORY: Preop for removal of mass from back COMPARISON: July 2020 FINDINGS: The lungs appear clear of acute infiltrate. The heart is normal size. Loop recorder overl ies the left chest. The aorta is tortuous/ectatic IMPRESSION: No acute abnormalities displayed
[2021-05-06] MEDS: Ringers Lactate 1,000 ML IV ONE (08:05)
[2021-05-06] MEDS ORDERED: CEFAZOLIN/NS 1gm 1 GM/50 ML BAG ONE (08:18)
[2021-05-06] MEDS ORDERED: BUPIVACAINE 0.5% PF 10 ML VIAL ONE (08:24)
[2021-05-06] MEDS ORDERED: MIDAZOLAM HCL 2 MG/2 ML INJ ONE (08:37)
[2021-05-06] MEDS ORDERED: propofoL 200 MG/20 ML VIAL IV ONE ×2 (08:38→09:19)
[2021-05-06] MEDS ORDERED: LIDOCAINE 1% MPF 2 ML AMPULE ONE (08:38)
[2021-05-06] MEDS ORDERED: FENTANYL CITR 100 MCG/2 ML ONE (08:38)
[2021-05-06] MEDS ORDERED: EPHEDRINE SULF 50 MG/ML VIAL ONE (09:18)
--- NOTE | 2021-05-06 11:31 | OP ---
Date of Procedure: 05/06/2021 Surgeon: Jacinto Garcia MD Sole Skiver: JOHNAA Guerrero. Preoperative Diagnosis: Back mass. Postoperative Diagnosis: Inflamed sebaceous cyst. Procedure Performed: Wide excision of back mass 6 x 3 cm with layered closure. Estimated Blood Loss: Minimal. Specimen: C and S and back mass. Findings: As above. Anesthesia: General. Complications: None. Drains: [place] quarter-inch. Disposition: The patient tolerated the procedure in stable condition and taken to Recovery in good g eneral condition. Procedure In Detail: The patient was brought to the OR and placed in supine position. General anest hesia begun. The patient was prepped and draped in the usual sterile fashion in the left lateral pos ition. Marcaine 0.5% was infiltrated locally. A 15-blade was used to make a 6 x 3 cm incision over this inflamed mass over the back. Subcutaneous tissue divided over the sebaceous cyst and the dissec tion proceeded all the way around the sac of the sebaceous cyst and the entire cyst excised and sent to Pathology as specimen. Wound irrigated. Bleeding controlled with cautery. Flaps created and the n 2-0 chromic used to approximate subcutaneous tissue. [place] quarter-inch drain was placed and sec ured with 3-0 nylon and 3-0 nylon was used to close the skin. Sterile dressing applied. The patient was awakened and taken to Recovery in good general condition. Discharge Note: The patient will go to day surgery and home when stable. Disposition: Home. Condition: Stable. Discharge Instructions: Resume home medications and diet. Activity as tolerated. No heavy lifting. Remove outer dressing in 2 days. Shower. Keep wound clean and dry. Follow up in my office in 1 w [place]. Call for appointment. Tylenol No.3 one tablet p.o. q.4 p.r.n. pain and Cipro 500 mg p.o. q.12. /MODL Voice ID: [id number] Report ID: [id number]
[2021-05-06 12:05] VITALS: BP 147/64; TEMP 96.5; O2SAT 98
== END 2021-05-06 11:00 | disposition home or self-care (01) ==
LOC: OR 07:42
PROVIDERS: ATTEND Surgery
PROC: 0JB70ZZ Excision of Back Subcutaneous Tissue and Fascia, Open Approach (ICD-10-PCS; principal; 2021-05-06 09:30)
DX: L72.0 Epidermal cyst (principal); Z20.822 Contact with and (suspected) exposure to COVID-19
CPT/HCPCS: 71046; 87070; 87077; 87186; 87205; 88304; 93005; J0690; J2250; J2704; J3010; J7120; U0003